=== PATIENT | male | born 1980 | race Caucasian/White ===

== ENCOUNTER → 2020-04-30 14:09 | Outpatient (BNVA) | payer MEDICAID, SELFPAY | PROVIDERS: Family Provider Family Medicine; PCP Family Medicine; Visit Provider Family Medicine | DX: E13.9 Other specified diabetes mellitus without complications (principal) | CPT/HCPCS: 80053; 83036; 85025 ==

== ENCOUNTER 2021-05-07 12:22 | Emergency (ER) | payer MEDICARE, MEDICAID, SELFPAY ==
--- NOTE | 2021-05-07 12:32 | PC.NURSE ---
Attempt to triage. Pt stated he needs to use the bathroom.
--- NOTE | 2021-05-07 12:37 | PC.NURSE ---
Pt in bathroom, Pt stated I'm okay
[2021-05-07 12:43] VITALS: BP 164/98; PULSE 75; RESP 22; O2SAT 92; BMI 19.9
--- NOTE | 2021-05-07 12:52 | XR_ITS ---
WS: [id number] Exam: XR abdomen min 2V [id number] Date/Time of Exam: 05/07/2021 12:52 PM Reason For Exam: Abd pain No bowel obstruction or free air. Signs of prior cholecystectomy. No evidence of organ enlargement. R egional bony elements are intact. XR/XR abdomen min 2V 17011 IMPRESSION: 1. No acute abdominal finding.
--- NOTE | 2021-05-07 12:53 | ED_ITS ---
HPI - Nausea/Vomiting/Diarrhea General: Chief complaint: Nausea/Vomiting/Diarrhea Stated complaint: SENT BY PCP: DEHYDRATED Time Seen by Provider: 05/07/21 12:49 History of Present Illness: HPI Narrative: This patient is a 40-year-old male who presents to the emergency department for nausea and vomiting has been going off and on for the past couple weeks. Patient states she just feels sick and just cannot keep anything down. Patient was sent to the emergency department from local clinic. Patient checks his blood glucose with monitor at the bedside was 248. Patient is a insulin-dependent diabetic. Will do medical evaluation treat as needed MD elicited complaint: nausea and vomiting Onset (ago): week(s) Associated nausea: Yes Location of pain: Epigastric Quality: aching Relieving factors: none Associated symtoms: Reports nausea; Denies anxiety, change in vision, chest pain, dysuria, fatigue, headache(s) or palpitations Review of Systems General: Reports: 10 or more systems reviewed and unremarkable except in HPI and below Const: Denies: fever(s), chills, body aches or fatigue Eyes: Denies: change in vision or blurry vision ENMT: Denies: throat pain, hoarseness or mouth pain Card: Denies: chest pain, palpitations, irregular heart rhythm, edema, swelling of feet/ankles or lightheadedness Resp: Denies: dyspnea, productive cough, non-productive cough, wheezing or pain on inspiration GI: Reports: nausea and vomiting; Denies: abdominal pain : Denies: flank pain, dysuria, urinary frequency, urinary urgency or urinary hesitancy Musc: Denies: neck pain, back pain, extremity pain, extremity swelling, joint pain, joint swelling, joint redness, joint warmth or limited range of motion Skin/Breast: Denies: rash, pruritus, erythema or skin tenderness Neuro: Denies: headache(s), numbness in extremities or weakness in extremities Psych: Denies: anxiety or depression PFSH ED PFSH: Medical History (Updated 05/07/21 @ 14:57 by Carlos Adams MD) Diabetes 1.5, managed as type 1 Diabetic peripheral neuropathy Social History Smoking and tobacco status: never smoked Alcohol intake: former Physical Exam Const: COMMON NORMALS: no acute distress, average body habitus, patient oriented x3, no limitations, healthy appearing, alert and well nourished HENMT: COMMON NORMALS: normocephalic, atraumatic, hearing grossly normal bilaterally, external ears normal, EAC's normal, TM's normal bilaterally, Normal external nose present, Normal nasal mucous membranes and turbinates present, moist oral mucous membranes, oropharynx normal, dentition normal and gingiva normal HEAD & SCALP: normocephalic and atraumatic NOSE: Normal external nose present and Normal nasal mucous membranes and turbinates present EXTERNAL EAR: Yes external ears normal EXTERNAL AUDITORY CANAL: EAC's normal TYMPANIC MEMBRANE: TM's normal bilaterally Neck/C-Spine: COMMON NORMALS: full ROM, no lymphadenopathy, supple, no meningeal signs, no JVD, Thyroid normal and No carotid bruits THYROID: Thyroid normal Chest: COMMONS NORMALS: normal inspection of the chest, normal palpation of entire chest wall, normal inspection of the breasts and normal palpation of the breasts Breast/axilla inspection: Yes normal inspection of the breasts BREAST/AXILLA PALPATION: Yes normal palpation of the breasts Resp: COMMON NORMALS: normal respiratory effort, No retractions, No use of accessory muscles, clear to auscultation bilaterally and percussion normal AUSCULTATION: clear to auscultation bilaterally PERCUSSION: percussion normal Cardio: COMMON NORMALS: no JVD, regular rate, regular rhythm, S1 normal heart sound present, S2 normal heart sound present, No gallops present (Cardio), No clicks present (Cardio), No murmurs present (Cardio), No rub (Cardio) and Peripheral pulses 2+ throughout RATE: regular rate RHYTHM: regular rhythm HEART SOUNDS: S1 normal heart sound present and S2 normal heart sound present PERIPHERAL PULSES: Peripheral pulses 2+ throughout GI: COMMON NORMALS: Normal to inspection, nondistended, normoactive bowel sounds present, Soft to palpation, non-tender, No hepatosplenomegaly present, no masses and no bruits PALPATION: Yes Soft to palpation and Yes No hepatosplenomegaly present : COMMON NORMALS: Yes no CVA tenderness BLADDER/KIDNEY EXAM: Yes no CVA tenderness Back/Pelvis: COMMON NORMALS: no CVA tenderness, thoracic and lumbar spine normal to inspection, no thoracic nor lumbar tenderness, thoraco-lumbar ROM normal and straight leg raise negative bilaterally Extremity: COMMON NORMALS: normal to inspection, full ROM, capillary refill normal, no joint enlargement, no clubbing, cyanosis or edema, no calf tenderness and no pedal edema Neuro: COMMON NORMALS: patient oriented x3 SENSORIUM/ORIENTATION: Yes alert MENINGEAL SIGNS: Yes no meningeal signs Course Reevaluation(s): Reevaluation #1: Negative evaluation in the emergency department for any acute findings. Patient will be discharged home. Patient does show to have mild dehydration. Patient has received fluid bolus in the emergency department. Encourage p.o. fluids. Tylenol Motrin as needed for fever or pain. Take medications as prescribed for nausea vomiting. May take any bmcr-cyt-[id number] antihistamine for nasal congestion. Follow-up with PCP in 2 to 3 days. Time: 14:58 Vital Signs: Vital signs: Vital Signs Pulse Rate 88 05/07/21 13:21 Respiratory Rate 15 05/07/21 13:21 Blood Pressure 170/85 05/07/21 13:21 Pulse Oximetry 99 05/07/21 13:21 MDM - Nausea/Vomiting/Diarrhea MDM Narrative: Medical decision making narrative: This patient is a 40-year- old male who presents to the emergency department for nausea and vomiting has been going off and on for the past couple weeks. Patient states she just feels sick and just cannot keep anything down. Patient was sent to the emergency department from local clinic. Patient checks his blood glucose with monitor at the bedside was 248. Patient is a insulin-dependent diabetic. Will do medical evaluation treat as needed Negative evaluation in the emergency department for any acute findings. Patient will be discharged home. Patient does show to have mild dehydration. Patient has received fluid bolus in the emergency department. Encourage p.o. fluids. Tylenol Motrin as needed for fever or pain. Take medications as prescribed for nausea vomiting. May take any [id number]-[id number] antihistamine for nasal congestion. Follow-up with PCP in 2 to 3 days. Lab Data: Labs: Lab Results 05/07/21 05/07/21 05/07/21 13:15 13:15 13:47 WBC 12.2 10^3/uL H 10 ^3/uL (4.0-10.0) RBC 4.32 10^6/uL 10^6 /uL (4.1-5.3) Hgb 12.7 g/dL g/dL (11.7-16.6) Hct 39.0 % L % (42.0-52.0) MCV 90.3 fl fl (80-94) MCH 29.4 pg pg (28.0-34.0) MCHC 32.6 g/dL g/dL (30.0-36.0) RDW 12.1 % % (12.1-15.1) Plt Count 469 10^3/cmm H 10 ^3/cmm (130-400) MPV 10.1 fL fL (7.4-10.4) Neut % (Auto) 70.2 % % Lymph % (Auto) 17.1 % % [place] % (Auto) 9.9 % % Eos % (Auto) 1.9 % % Baso % (Auto) 0.6 % % Neut # (Auto) 8.55 10^3/uL H 10 ^3/uL (1.8-7.7) Lymph # (Auto) 2.1 10^3/uL 10^3/ uL (0.8-4.8) [place] # (Auto) 1.2 10^3/uL H 10^ 3/uL (0.2-0.9) Eos # (Auto) 0.2 10^3/uL 10^3/ uL (0.0-0.8) Baso # (Auto) 0.1 10^3/uL 10^3/ uL (0.0-0.1) Nucleated RBC % (a uto) 0 % % Nucleated RBCs # 0.0 /100WBC /100W BC Specimen Type Arterial Sample Site Brachial, right ABG pH 7.41 (7.35-7.45) ABG pCO2 44.3 mmHg mmHg (35-45) ABG pO2 74.5 mmHg L mmHg (80.0-100.0) ABG HCO3 27.7 mmol/L H mmo l/L (22-26) ABG O2 Saturation 93.8 ABG Base Excess 2.5 mmol/L H mmol /L (-2.0-2.0) Santosh Test N/a A-a O2 Gradient 2.6 mmHg L mmHg (5-10) Hematocrit 37.4 % L % (42-52) Hgb O2 Saturation 92.7 % L % (95-100) Carboxyhemoglobin 0.1 %THgb L %THgb (0.4-20.1) Methemoglobin 1.0 % % (0.4-1.5) Total Hemoglobin 12.2 g/dL L g/dL (14-18) Ionized Calcium 1.2 mmol/L mmol/L (1.1-1.4) O2 Delivery Device Room air FiO2 21.0 % % Hydroelectric Powerplant Supervisor ID Amh Sodium 134 mmol/L L mmol /L 139.0 mmol/L mmol /L (136-145) (131-143) Potassium 3.8 mmol/L mmol/L 3.6 mmol/L mmol/L (3.5-5.1) (3.5-5.0) Chloride 97 mmol/L L mmol/ L (98-107) Carbon Dioxide 28 mmol/L mmol/L (22-29) Anion Gap 12.8 (5-19) BUN 25 mg/dL H mg/dL (6-20) Creatinine 2.0 mg/dL H mg/dL (0.7-1.2) GFR Calculation 36.8 mL/min L mL/ min (90-130) Glucose 225 mg/dL H mg/dL 144.0 mg/dL H mg/ dL (65-115) (70-115) Calculated Osmolal ity 289 mOsm/kg mOsm/ kg (285-295) Calcium 8.7 mg/dL mg/dL (8.5-10.5) Total Bilirubin 0.4 mg/dL mg/dL (0.15-1.2) AST 21 U/L U/L (0-40) ALT 25 U/L U/L (0-41) Alkaline Phosphata se 136 IU/L H IU/L (40-130) Total Protein 6.8 g/dL g/dL (6.6-8.7) Albumin 3.2 g/dL L g/dL (3.5-5.2) Globulin 3.6 g/dL g/dL (1.3-4.6) SARS-CoV-2 Ag (Rap id) 05/07/21 14:10 WBC RBC Hgb Hct MCV MCH MCHC RDW Plt Count MPV Neut % (Auto) Lymph % (Auto) [place] % (Auto) Eos % (Auto) Baso % (Auto) Neut # (Auto) Lymph # (Auto) [place] # (Auto) Eos # (Auto) Baso # (Auto) Nucleated RBC % (a uto) Nucleated RBCs # Specimen Type Sample Site ABG pH ABG pCO2 ABG pO2 ABG HCO3 ABG O2 Saturation ABG Base Excess Santosh Test A-a O2 Gradient Hematocrit Hgb O2 Saturation Carboxyhemoglobin Methemoglobin Total Hemoglobin Ionized Calcium O2 Delivery Device FiO2 Hydroelectric Powerplant Supervisor ID Sodium Potassium Chloride Carbon Dioxide Anion Gap BUN Creatinine GFR Calculation Glucose Calculated Osmolal ity Calcium Total Bilirubin AST ALT Alkaline Phosphata se Total Protein Albumin Globulin SARS-CoV-2 Ag (Rap id) Negative (Negative) Imaging Data^: Abd 2V: Attestation: I personally reviewed and interpreted this imaging study as follows: Radiologist's impression: IMPRESSION: 1. No acute abdominal finding. Discharge Plan Discharge Patient Disposition: Home Clinical Impression: Viral URI, Diabetes 1.5, managed as type 1, Dehydration, Mild nausea and vomiting Condition: Stable Prescriptions: New ondansetron 4 mg tablet,disintegrating 4 mg PO DAILY PRN (Reason: nausea and vomiting) 4 Days RF: 0 No Action omeprazole 20 mg capsule,delayed release(DR/EC) 20 mg PO BID 90 Days Qty: 180 RF: 1 diphenhydramine HCl [Benadryl] 25 mg capsule 25 mg PO TID PRN (Reason: Allergic Reaction) RF: 0 insulin lispro [Humalog KwikPen Insulin] 100 unit/mL insulin pen 20 unit SUBCUT TID 30 Days Qty: 15 RF: 11 Glucagon Emergency Kit (human) 1 mg recon soln 1 mg SUBCUT Q20M PRN (Reason: hypoglycemia) Qty: 1 RF: 6 amlodipine 2.5 mg tablet 2.5 mg PO DAILY Qty: 90 RF: 3 Levemir FlexTouch U-100 Insuln 100 unit/mL (3 mL) insulin pen 20 unit SUBCUT DAILY RF: 0 Discharge Orders: Discharge ED (Routine); Ordered 05/07/21 Ordered By: Carlos Adams Referrals: Amrit Antoine MD [Primary Care Provider] - Discharge Diet: Advance as tolerated Discharge Activity: Resume usual activity Patient Instructions: Opioid Safety Activity Restrictions/Additional Instructions: Encourage p.o. fluids. Tylenol Motrin as needed for fever or pain. Take medications as prescribed for nausea vomiting. May take any vowd-tuz-vvhjmtc antihistamine for nasal congestion. Follow-up with PCP in 2 to 3 days. Coding Level of Care Code ED Bread Stacker for Chg Fwd Exam Comprehensive
[2021-05-07 13:21] VITALS: BP 170/85; PULSE 88; RESP 15; O2SAT 99
[2021-05-07] MEDS: ondansetron 2 mg/ML SDV 2 mL 4 MG IVP (13:24)
[2021-05-07] MEDS: sodium chloride 0.9% 1,000 ML 999 ML IV ×2 (13:24→14:10)
[2021-05-07 13:26] LABS: Basophils # 0.1 10^3/uL (0.0-0.1); Basophils % 0.6 %; Eosinophils # 0.2 10^3/uL (0.0-0.8); Eosinophils % 1.9 %; Hemoglobin 12.7 g/dL (11.7-16.6); Lymphocytes # 2.1 10^3/uL (0.8-4.8); Lymphocytes % 17.1 %; Mean Corpuscular HGB Conc 32.6 g/dL (30.0-36.0); Mean Corpuscular Hemoglobin 29.4 pg (28.0-34.0); Mean Corpuscular Volume 90.3 fl (80-94); Mean Platelet Volume 10.1 fL (7.4-10.4); Monocytes # 1.2 10^3/uL (0.2-0.9); Monocytes % 9.9 %; Neutrophils # 8.55 10^3/uL (1.8-7.7); Neutrophils % 70.2 %; Nucleated Red Blood Cells % 0 %; Platelet Count 469 10^3/cmm (130-400); Red Blood Count 4.32 10^6/uL (4.1-5.3); Red Cell Distribution Width 12.1 % (12.1-15.1); White Blood Count 12.2 10^3/uL (4.0-10.0)
[2021-05-07 13:42] LABS: Alanine Aminotransferase 25 U/L (0-41); Albumin Level 3.2 g/dL (3.5-5.2); Alkaline Phosphatase 136 IU/L (40-130); Anion Gap 12.8 (5-19); Aspartate Amino Transferase 21 U/L (0-40); Blood Urea Nitrogen 25 mg/dL (6-20); Calcium 8.7 mg/dL (8.5-10.5); Carbon Dioxide 28 mmol/L (22-29); Chloride 97 mmol/L (98-107); Globulin 3.6 g/dL (1.3-4.6); Glomerular Filtration Rate 36.8 mL/min (90-130); Glucose 225 mg/dL (65-115); Osmolality Calculated 289 mOsm/kg (285-295); Potassium 3.8 mmol/L (3.5-5.1); Sodium 134 mmol/L (136-145); Total Bilirubin 0.4 mg/dL (0.15-1.2); Total Protein 6.8 g/dL (6.6-8.7)
[2021-05-07 13:58] LABS: ABG PCO2 44.3 mmHg (35-45); ABG PH Result 7.41 (7.35-7.45); Alveolar-Arterial Oxygen Gradi 2.6 mmHg (5-10); Arterial Blood Gas Hematocrit 37.4 % (42-52); Base Excess ABG 2.5 mmol/L (-2.0-2.0); Blood Gas Operator Identificat AMH; Blood Gas Sample Site Brachial, right; Blood Gas Sample Type Arterial; Carboxyhemoglobin 0.1 %THgb (0.4-20.1); HCO3 ABG 27.7 mmol/L (22-26); HGB O2 Sat 92.7 % (95-100); Ionized Calcium Level - ABG 1.2 mmol/L (1.1-1.4); Oxygen Device ROOM AIR; Oxygen Saturation ABG 93.8; PO2 ABG 74.5 mmHg (80.0-100.0); Potassium Level - ABG 3.6 mmol/L (3.5-5.0); Total Hemoglobin 12.2 g/dL (14-18)
[2021-05-07 14:40] LABS: SARS Covid-2 Antigen Negative (Negative)
[2021-05-07 15:00] VITALS: BP 158/108; PULSE 98; RESP 18; O2SAT 98
[2021-05-07 15:13] VITALS: BP 158/108; PULSE 98; RESP 18; O2SAT 98
== END 2021-05-07 15:14 | disposition home or self-care (01) ==
PROVIDERS: Emergency Provider Emergency Medicine; PCP Family Medicine
DX: J06.9 Acute upper respiratory infection, unspecified (principal); E13.42 Other specified diabetes mellitus with diabetic polyneuropathy; E86.0 Dehydration; R11.2 Nausea with vomiting, unspecified; Z79.4 Long term (current) use of insulin; Z20.822 Contact with and (suspected) exposure to COVID-19
CPT/HCPCS: 36600; 74019; 80051; 80053; 82330; 82805; 85025; 87426; 96361; 96374; 99283; J2405; J7030

== ENCOUNTER 2022-03-06 14:37 | Inpatient (IN) | payer MEDICARE, MEDICAID, SELFPAY ==
[2022-03-06] VITALS (13 sets, daily range): BP systolic 135–182; BP diastolic 83–120; PULSE 79–106; RESP 14–24; TEMP 36.3–37.2; O2SAT 93–99; BMI 19.9
--- NOTE | 2022-03-06 15:37 | XRR_ITS ---
PROCEDURE INFORMATION: Exam: XR Chest Exam date and time: 03/06/2022 5:50 PM Age: 41 years old Clinical indication: Shortness of breath; Additional info: SOB TECHNIQUE: Imaging protocol: Radiologic exam of the chest. Views: 1 view. COMPARISON: CR XR abdomen min 2V [id number] 05/07/2021 12:57 PM FINDINGS: Lungs: Fine reticular interstitial lung changes. Negative for consolidation. Pleural spaces: Bilateral pleural effusions. Negative for pneumothorax. Heart/Mediastinum: Unremarkable. No cardiomegaly. Bones/joints: Unremarkable. XR/XR chest 1V portable [id number] IMPRESSION: 1. Pleural effusions. 2. No focal acute pulmonary disease.
--- NOTE | 2022-03-06 15:37 | ECG_ITS ---
[facility] Test Date: 2022-03-06 Pat Name: Fabián Ortiz Department: Room: Gender: Male Clerk Cashier: : 1980 Requested By: Carlos Sanchez Order Number: [id number] Nichole MD: Isabel Topete M.D. Measurements Intervals [place] Rate: 96 P: 54 CO: 148 QRS: 47 QRSD: 87 T: 123 QT: 375 QTc: 476 Interpretive Statements SINUS RHYTHM POSSIBLE LEFT ATRIAL ENLARGEMENT [-0.1mV P-WAVE IN V1/V2] NONSPECIFIC T-WAVE ABNORMALITY No previous ECG available for comparison Electronically Signed On 03-06-2022 17:17:17 CDT by Isabel Topete M.D. [email or web address] World ([email or web address]) [employer] [email or web address]/[id number] f
--- NOTE | 2022-03-06 17:37 | ECG_ITS ---
[facility] Test Date: 2022-03-06 Pat Name: Fabián Ortiz Department: Room: Gender: Male Any Commodity Sales Deliverer: : 1980 Requested By: Carlos Sanchez Order Number: [id number] Nichole MD: Isabel Topete M.D. Measurements Intervals [place] Rate: 105 P: 41 MI: 151 QRS: 36 QRSD: 91 T: 154 QT: 371 QTc: 491 Interpretive Statements SINUS TACHYCARDIA ST DEVIATION AND MODERATE T-WAVE ABNORMALITY, CONSIDER LATERAL ISCHEMIA [-0.1+ mV T-WAVE IN I/aVL/V5/V6] Compared to ECG 03/06/2022 14:55:40 Possible ischemia now present Sinus rhythm no longer present T-wave abnormality still present Electronically Signed On 03-06-2022 17:47:43 CDT by Isabel Topete M.D. [email or web address] behavioral health [email or web address] (formerly [employer])[email or web address]/store/[id number]
--- NOTE | 2022-03-06 17:37 | W.ED.GENADLT ---
HPI - General Adult General: Chief complaint: Extremity Problem,Nontraumatic Stated complaint: Swelling of the legs/body Time Seen by Provider: 03/06/22 17:29 Source: patient Mode of arrival: ambulatory Limitations: no limitations History of Present Illness: Patient is a 41-year-old male with a history of HTN, DM type 1 (states he is very brittle), GERD, abdominal migraines , and hepatitis C here for complaints of bilateral lower leg edema and shortness of breath over the past 2 weeks or so. Patient states he normally has some mild bilateral leg swelling but feels like it is worse than his baseline. He states he is getting short of breath with minimal exertion and when lying flat. He has no history of CHF. He is not complaining of chest pain. Patient admittedly has not been taking his hypertension medication. PCP is Dr. Antoine. Of note he states he has not been urinating as much as normal. Onset (ago): week(s) Exacerbating factors: other (exertion, lying flat) Associated symptoms: Reports dyspnea; Deny chest pain, confusion, headache(s), malaise, nausea, rash, palpitations, syncope or vomiting Treatments prior to arrival: none Review of Systems Const: Denies: fever(s), chills, body aches, fatigue or malaise Eyes: Denies: change in vision, blurry vision or photophobia ENMT: Denies: throat pain, odynophagia, nasal discharge or nasal congestion Card: Reports: edema and swelling of feet/ankles; Denies: chest pain, palpitations, irregular heart rhythm, lightheadedness, syncope, pre-syncope, dyspnea on exertion, orthopnea, leg pain with exertion or acrocyanosis Resp: Reports: dyspnea; Denies: productive cough, non-productive cough, wheezing, pain on inspiration, hemoptysis or chest congestion GI: Reports: abdominal pain (intermittently-reports hx of abdominal migraines ); Denies: nausea, vomiting, heartburn or diarrhea : Denies: flank pain, difficulty urinating, dysuria or hematuria Musc: Reports: extremity swelling; Denies: neck pain, back pain, extremity pain, joint pain, joint swelling, joint redness, joint warmth or limited range of motion Skin/Breast: Denies: rash Neuro: Reports: sensory changes (chronic LE diabetic neuropathy); Denies: headache(s), weakness in extremities, difficulty walking, dizziness or confusion PFS ED PFSH: Medical History (Updated 03/06/22 @ 20:23 by ROGER Frey) Diabetes 1.5, managed as type 1 Diabetic peripheral neuropathy Social History Smoking and tobacco status: never smoked Alcohol intake: former Physical Exam Const: COMMON NORMALS: no acute distress, patient oriented x3, no limitations and alert GENERAL APPEARANCE: cooperative ORIENTATION/CONSCIOUSNESS: Yes awake, Yes oriented to person, Yes oriented to place and Yes oriented to time HENMT: COMMON NORMALS: normocephalic and atraumatic HEAD & SCALP: normal to inspection, normocephalic and atraumatic Neck/C-Spine: COMMON NORMALS: full ROM, no lymphadenopathy and no meningeal signs GENERAL: Yes normal visual inspection Resp: COMMON NORMALS: normal respiratory effort and clear to auscultation bilaterally EFFORT & INSPECTION: Yes able to speak in complete sentences AUSCULTATION: clear to auscultation bilaterally Cardio: COMMON NORMALS: regular rhythm RATE: tachycardic (mild-just walked back to his room) RHYTHM: regular rhythm GI: COMMON NORMALS: Normal to inspection, nondistended, normoactive bowel sounds present, Soft to palpation and non-tender INSPECTION: Yes scar PALPATION: Yes Soft to palpation, No Tenderness to palpation present (GI), No Guarding due to palpation present (GI) and No Rigid due to palpation : COMMON NORMALS: Yes no CVA tenderness BLADDER/KIDNEY EXAM: Yes no CVA tenderness Back/Pelvis: COMMON NORMALS: no CVA tenderness, thoracic and lumbar spine normal to inspection, no thoracic nor lumbar tenderness and thoraco-lumbar ROM normal Extremity: COMMON NORMALS: full ROM, capillary refill normal and no joint enlargement GENERAL: Yes normal exam except as noted OTHER: bilateral LE pitting edema; symmetrical starting from about mid conley extending to lower leg, ankle, and feet; previous toe amputation Neuro: VILMA COMA SCALE: document GCS findings [place] coma scale eye opening: Spontaneous [place] coma scale verbal response: Orientated [place] coma scale motor response: Obey commands [place] coma scale total score: 15 COMMON NORMALS: patient oriented x3, moves all extremities, no focal motor deficits, no sensory deficits noted and gait normal SENSORIUM/ORIENTATION: Yes alert, Yes oriented to person, Yes oriented to place and Yes oriented to time MENINGEAL SIGNS: Yes no meningeal signs Skin: COMMON NORMALS: no rashes or lesions noted GENERAL SKIN EXAM: no rashes or lesions noted Course Consultations: Consultation #1: Dr. Swenson-accepts admit to ICU; does not request any further orders from our end as she will calculate insulin drip/fluid needs Vital Signs: Vital signs: Vital Signs Temperature 97.4 F L 03/06/22 14:57 Pulse Rate 104 H 03/06/22 18:01 Respiratory Rate 16 03/06/22 18:01 Blood Pressure 177/120 03/06/22 18:01 Pulse Oximetry 96 03/06/22 18:01 Oxygen Delivery Me thod 03/06/22 18:01 MDM - General Adult Medical Decision Making Patient is a 41-year-old male here with a 2-week history of bilateral leg swelling and shortness of breath with exertion and lying flat. Clinically patient is fluid overloaded with bilateral lower extremity pitting edema. CXR shows bilateral pleural effusions. Patient has been hypertensive during his stay. He does state he has untreated hypertension but blood pressure usually is not that high. Attempted to give patient his normal oral dose of amlodipine but he began vomiting. POC glucose was checked and it was found to be elevated to 15. Patient states that is very high for him as he is a brittle diabetic. He states he would normally take 3 units of NovoLog for sugar that high. This was ordered. Patient's blood work shows anemia with a hemoglobin of 9.2. He is in acute renal failure with a BUN/Cr of 98/7.6. He is hypocalcemic at 7.8. Appears he is in acute onset CHF with a BNP of over 54,000. In addition he most likely is in DKA given his nausea, vomiting, positive serum ketones, gap of 25.2 and a bicarb of 15. Baseline troponin is 92 most likely secondary to renal functions. He is not having any chest pain. EKGs were reviewed with Dr. Enriquez. Obviously this patient needs an ICU admit. I spoke to Dr. Swenson. She will work on patient insulin drip and fluid requirements given his need for CHF diuresis in the setting of acute renal failure and DKA. She did not request any further orders at this time. Dr. Enriquez aware of patient and will assess. Lab Data : 03/06/22 18:09 03/06/22 18:09 Radiology Impressions Chest X-Ray 03/06/22 15:37 IMPRESSION: 1. Pleural effusions. 2. No focal acute pulmonary disease. Laboratory Results WBC 9.7 10^3/uL (4.0-10.0) 03/06/22 18:09 RBC 3.02 10^6/uL (4.1-5.3) L 03/06/22 18:09 Hgb 9.2 g/dL (11.7-16.6) L 03/06/22 18:09 Hct 28.0 % (42.0-52.0) L 03/06/22 18:09 MCV 92.7 fl (80-94) 03/06/22 18:09 MCH 30.5 pg (28.0-34.0) 03/06/22 18:09 MCHC 32.9 g/dL (30.0-36.0) 03/06/22 18:09 RDW 13.2 % (12.1-15.1) 03/06/22 18:09 Plt Count 461 10^3/cmm (130-400) H 03/06/22 18:09 MPV 10.7 fL (7.4-10.4) H 03/06/22 18:09 Neut % (Auto) 74.1 % 03/06/22 18:09 Lymph % (Auto) 15.9 % 03/06/22 18:09 [place] % (Auto) 6.7 % 03/06/22 18:09 Eos % (Auto) 1.6 % 03/06/22 18:09 Baso % (Auto) 1.4 % 03/06/22 18:09 Neut # (Auto) 7.16 10^3/uL (1.8-7.7) 03/06/22 18:09 Lymph # (Auto) 1.5 10^3/uL (0.8-4.8) 03/06/22 18:09 [place] # (Auto) 0.7 10^3/uL (0.2-0.9) 03/06/22 18:09 Eos # (Auto) 0.2 10^3/uL (0.0-0.8) 03/06/22 18:09 Baso # (Auto) 0.1 10^3/uL (0.0-0.1) 03/06/22 18:09 Nucleated RBC % (auto) 0 % 03/06/22 18:09 Nucleated RBCs # 0.0 /100WBC 03/06/22 18:09 Specimen Type Arterial 03/06/22 19:55 Sample Site Radial, left 03/06/22 19:55 ABG pH 7.35 (7.35-7.45) 03/06/22 19:55 ABG pCO2 33.7 mmHg (35-45) L 03/06/22 19:55 ABG pO2 61.4 mmHg (80.0-100.0) L 03/06/22 19:55 ABG HCO3 18.4 mmol/L (22-26) L 03/06/22 19:55 ABG O2 Saturation 90.2 03/06/22 19:55 ABG Base Excess -6.6 mmol/L (-2.0-2.0) L 03/06/22 19:55 Santosh Test Pos 03/06/22 19:55 A-a O2 Gradient 6.0 mmHg (5-10) 03/06/22 19:55 Hematocrit 25.9 % (42-52) L 03/06/22 19:55 Hgb O2 Saturation 88.7 % (95-100) L 03/06/22 19:55 Carboxyhemoglobin 0.2 %THgb (0.4-20.1) L 03/06/22 19:55 Methemoglobin 1.4 % (0.4-1.5) 03/06/22 19:55 Total Hemoglobin 8.5 g/dL (14-18) L 03/06/22 19:55 Sodium 142.0 mmol/L (131-143) 03/06/22 19:55 Potassium 3.8 mmol/L (3.5-5.0) 03/06/22 19:55 Glucose 145.0 mg/dL (70-115) H 03/06/22 19:55 Ionized Calcium 1.1 mmol/L (1.1-1.4) 03/06/22 19:55 O2 Delivery Device None 03/06/22 19:55 Correctional Counselor/Case Manager ID Hensa 03/06/22 19:55 Sodium 140 mmol/L (136-145) 03/06/22 18:09 Potassium 4.2 mmol/L (3.5-5.1) 03/06/22 18:09 Chloride 104 mmol/L (98-107) 03/06/22 18:09 Carbon Dioxide 15 mmol/L (22-29) L 03/06/22 18:09 Anion Gap 25.2 (5-19) H 03/06/22 18:09 BUN 98 mg/dL (6-20) H* D 03/06/22 18:09 Creatinine 7.6 mg/dL (0.7-1.2) H* 03/06/22 18:09 GFR Calculation 7.9 mL/min (90-130) L 03/06/22 18:09 Glucose 218 mg/dL (65-115) H 03/06/22 18:09 POC Glucose 217 mg/dL (70-110) H 03/06/22 18:54 Calculated Osmolality 327 mOsm/kg (285-295) H 03/06/22 18:09 Calcium 7.8 mg/dL (8.5-10.5) L 03/06/22 18:09 Total Bilirubin 0.3 mg/dL (0.15-1.2) 03/06/22 18:09 AST 30 U/L (0-40) 03/06/22 18:09 ALT 31 U/L (0-41) 03/06/22 18:09 Alkaline Phosphatase 103 IU/L (40-130) 03/06/22 18:09 Troponin T Baseline 92 ng/L (0-15) H 03/06/22 18:09 NT-Pro-B Natriuret Pep 62197 pg/mL (0-125) H 03/06/22 18:09 Total Protein 6.5 g/dL (6.6-8.7) L 03/06/22 18:09 Albumin 3.1 g/dL (3.5-5.2) L 03/06/22 18:09 Globulin 3.4 g/dL (1.3-4.6) 03/06/22 18:09 TSH 2.07 uIU/mL (0.27-4.20) 03/06/22 18:09 Serum Ketones Positive (Negative) H 03/06/22 18:09 Discharge Plan Discharge Patient Disposition: Admitted As Inpatient Clinical Impression: Acute CHF (congestive heart failure), Acute renal failure, DKA, type 1, Hypertensive emergency, Anemia Condition: Stable Coding Level of Care Code ED Giving Officer for Chg Fwd Exam Comprehensive
[2022-03-06] MEDS: amlodipine 5 mg Tablet PO (17:56)
[2022-03-06 18:31] LABS: Basophils # 0.1 10^3/uL (0.0-0.1); Basophils % 1.4 %; Eosinophils # 0.2 10^3/uL (0.0-0.8); Eosinophils % 1.6 %; Hemoglobin 9.2 g/dL (11.7-16.6); Lymphocytes # 1.5 10^3/uL (0.8-4.8); Lymphocytes % 15.9 %; Mean Corpuscular HGB Conc 32.9 g/dL (30.0-36.0); Mean Corpuscular Hemoglobin 30.5 pg (28.0-34.0); Mean Corpuscular Volume 92.7 fl (80-94); Mean Platelet Volume 10.7 fL (7.4-10.4); Monocytes # 0.7 10^3/uL (0.2-0.9); Monocytes % 6.7 %; Neutrophils # 7.16 10^3/uL (1.8-7.7); Neutrophils % 74.1 %; Nucleated Red Blood Cells % 0 %; Platelet Count 461 10^3/cmm (130-400); Red Blood Count 3.02 10^6/uL (4.1-5.3); Red Cell Distribution Width 13.2 % (12.1-15.1); White Blood Count 9.7 10^3/uL (4.0-10.0)
[2022-03-06] MEDS: ondansetron 2 mg/ML SDV 2 mL 4 MG IVP ×2 (18:55→21:49)
[2022-03-06 18:57] LABS: Glucose Point of Care 217 mg/dL (70-110)
[2022-03-06 19:15] LABS: Troponin(5th) Baseline 92 ng/L (0-15)
[2022-03-06 19:23] LABS: Alanine Aminotransferase 31 U/L (0-41); Albumin Level 3.1 g/dL (3.5-5.2); Alkaline Phosphatase 103 IU/L (40-130); Anion Gap 25.2 (5-19); Aspartate Amino Transferase 30 U/L (0-40); Calcium 7.8 mg/dL (8.5-10.5); Carbon Dioxide 15 mmol/L (22-29); Chloride 104 mmol/L (98-107); Globulin 3.4 g/dL (1.3-4.6); Glomerular Filtration Rate 7.9 mL/min (90-130); Glucose 218 mg/dL (65-115); Osmolality Calculated 327 mOsm/kg (285-295); Potassium 4.2 mmol/L (3.5-5.1); Sodium 140 mmol/L (136-145); Thyroid Stimulating Hormone 2.07 uIU/mL (0.27-4.20); Total Bilirubin 0.3 mg/dL (0.15-1.2); Total Protein 6.5 g/dL (6.6-8.7)
[2022-03-06 19:31] LABS: Blood Urea Nitrogen 98 mg/dL (6-20)
[2022-03-06] MEDS: insulin regular-human 100 units/1 mL 3 UNIT IVP (19:35)
[2022-03-06 19:36] LABS: Ketone (Acetest) Serum Positive (Negative)
--- NOTE | 2022-03-06 19:36 | ECG_ITS ---
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 Measurements Intervals [place] Rate: 104 P: 127 HI: 154 QRS: 148 QRSD: 89 T: 49 QT: 379 QTc: 500 Interpretive Statements SINUS TACHYCARDIA ARM LEADS REVERSED [INVERTED P AND QRS IN I] ABNORMAL RHYTHM ECG Compared to ECG 03/06/2022 17:46:05 T-wave abnormality no longer present Possible ischemia no longer present Electronically Signed On 03-07-2022 11:59:52 CDT by Vaibhav Orlando M.D. [id number] f
[2022-03-06] MEDS: labetalol 5 mg/mL SDV 20mL 10 MG IVP (20:00)
[2022-03-06 20:04] LABS: ABG PCO2 33.7 mmHg (35-45); ABG PH Result 7.35 (7.35-7.45); Arterial Blood Gas Hematocrit 25.9 % (42-52); Base Excess ABG -6.6 mmol/L (-2.0-2.0); Blood Gas Allen Test Pos; Blood Gas Sample Site Radial, left; Blood Gas Sample Type Arterial; Carboxyhemoglobin 0.2 %THgb (0.4-20.1); HCO3 ABG 18.4 mmol/L (22-26); HGB O2 Sat 88.7 % (95-100); Ionized Calcium Level - ABG 1.1 mmol/L (1.1-1.4); Methemoglobin 1.4 % (0.4-1.5); Oxygen Saturation ABG 90.2; PO2 ABG 61.4 mmHg (80.0-100.0); Potassium Level - ABG 3.8 mmol/L (3.5-5.0); Total Hemoglobin 8.5 g/dL (14-18)
[2022-03-06 20:24] LABS: Troponin 5 2HR 86.56 ng/L (0-15)
[2022-03-06 20:31] LABS: Troponin 5 2HR Delta -5.44 ABS# (0-10)
--- NOTE | 2022-03-06 21:26 | CTR_ITS ---
PROCEDURE INFORMATION: Exam: CT Abdomen And Pelvis Without Contrast Exam date and time: 03/07/2022 12:47 AM Age: 41 years old Clinical indication: Patient HX: Clark. Bilateral lower leg swelling. C/O diffuse pain. ; Additional info: Clark, evaluate for hydronephrosis/obstrcution TECHNIQUE: Imaging protocol: Computed tomography of the abdomen and pelvis without contrast. Radiation optimization: All CT scans at this facility use at least one of these dose optimization techniques: automated exposure control; mA and/or kV adjustment per patient size (includes targeted exams where dose is matched to clinical indication); or iterative reconstruction. COMPARISON: CR XR abdomen min 2V [id number] 05/07/2021 12:57 PM RADIATION DOSE METRICS: Total DLP (mGy-cm): 354.01 FINDINGS: Lungs: Nonspecific lower lobe airspace opacities. Septal thickening features. Pleural spaces: Moderate to large right pleural effusion. Small to moderate left pleural effusion. Liver: Normal. No mass. Gallbladder and bile ducts: Cholecystectomy. Pancreas: Normal. No ductal dilation. Spleen: Normal. No splenomegaly. Adrenal glands: Normal. No mass. Kidneys and ureters: Normal. No hydronephrosis. Stomach and bowel: Unremarkable. No obstruction. No mucosal thickening. Generalized mesenteric edema. Appendix: No evidence of appendicitis. Intraperitoneal space: Unremarkable. No free air. No significant fluid collection. Vasculature: Diffuse atherosclerosis without aneurysm. Lymph nodes: Unremarkable. No enlarged lymph nodes. Urinary bladder: Bladder decompressed. Hernandez catheter within the bladder. Reproductive: Mild severity prostatomegaly. Bones/joints: Unremarkable. No acute fracture. Soft tissues: Body wall anasarca. CT/CT kidney stone 19305 IMPRESSION: 1. Diffuse fluid overload changes. 2. No focal acute abdominopelvic pathology.
--- NOTE | 2022-03-06 21:31 | P.HP_ITS ---
Providers/Chief Complaint Admitting Physician: Margarette Swenson MD Primary Care Provider: Amrit Antoine MD Chief Complaint: Swelling of the legs/body History of Present Illness Fabián Ortiz Jr is a 41 year old male with a past medical history of hypertension presents to the ER today due to worsening lower extremity edema over the past 2 to 3 weeks. Also complaints of dyspnea with minimal exertio, iniability to lie flat. No chest pain. In the ER today he is noted to be vomiting. Labs show MELVIN, Cr >7. No h/o recent changes in medication, NSAID use. Review of Systems General: Reports: 10 or more systems reviewed and unremarkable except in HPI and below Const: Denies: fever(s), chills or body aches Eyes: Denies: change in vision, blurry vision or photophobia ENMT: Reports: hoarseness; Denies: throat pain, enlarged tonsils, odynophagia or nasal congestion Card: Denies: chest pain, palpitations, irregular heart rhythm, edema, swelling of feet/ankles, lightheadedness, pre-syncope, dyspnea on exertion or orthopnea Resp: Denies: dyspnea, productive cough, non-productive cough, wheezing, stridor, pain on inspiration, change in phlegm color, hemoptysis or chest congestion GI: Denies: abdominal pain, nausea, vomiting, hematemesis, coffee ground emesis, dysphagia, heartburn, diarrhea, constipation, GI cramping, change in stool character, hematochezia or melena : Denies: flank pain, dysuria, urinary frequency, urinary urgency, urinary hesitancy or hematuria Musc: Denies: neck pain, back pain, extremity pain, joint swelling, joint warmth or deformity Neuro: Denies: headache(s), numbness in extremities, weakness in extremities, sensory changes, difficulty walking, frequent falls, dizziness, vertigo, behavioral changes, Slurred speech present or seizure-like activity Psych: Denies: anxiety, depression, suicidal ideation or homicidal ideation Endo: Denies: polyuria, polydipsia, tired all the time, cold intolerance or hot flashes Mike/Lymph: Denies: easy bruising or easy bleeding Medications/Allergies Home Medications Medication Instructions Recorded Confirmed Last Taken Type diphenhydramine HCl 25 mg capsule 25 mg PO TID PRN Allergic Reaction 08/28/19 03/06/22 Unknown History (Benadryl) glucagon (human recombinant) 1 mg 1 mg SUBCUT Q20M PRN hypoglycemia 02/13/20 03/06/22 Unknown Rx solution for injection (Glucagon #1 ea Emergency Kit) amlodipine 2.5 mg tablet 2.5 mg PO DAILY #90 tabs 04/23/21 03/06/22 Unknown Rx scopolamine base 1 mg over 3 days 1 patch transdermal Q3D PRN nausea 05/21/21 03/06/22 Unknown Rx transdermal patch and vomiting #10 ea flash glucose sensor (FreeStyle See Rx Instructions .Route 06/20/21 03/06/22 Unknown Rx Alicia 14 Day Sensor) .COMPLEX #1 ea insulin lispro 100 unit/mL 20 unit (0.2 mL) SUBCUT TID 30 01/26/22 03/06/22 Unknown Rx subcutaneous pen (Humalog KwikPen days #15 mL (U-100) Insulin) hydrocodone 5 mg-acetaminophen 325 1 tab PO Q6H PRN pain 30 days #120 02/23/22 03/06/22 Unknown Rx mg tablet tabs insulin detemir U-100 100 unit/mL 20 unit (0.2 mL) SUBCUT DAILY #15 02/23/22 03/06/22 03/04/22 21:00 Rx (3 mL) subcutaneous pen (Levemir mL FlexTouch U-100 Insulin) Allergies Allergy/AdvReac Type Severity Reaction Status Date / Time cefaclor [From Ceclor] Allergy rash Verified 05/07/21 11:28 metoclopramide [From Reglan] Allergy bites his Verified 05/07/21 11:28 tongue prochlorperazine Allergy no IV just Verified 05/07/21 11:28 [From Compazine] oral PFSH Acute PFSH: Medical History (Updated 03/07/22 @ 06:55 by Margarette Swenson MD) Depression Diabetes 1.5, managed as type 1 Diabetic peripheral neuropathy Surgical History (Updated 03/07/22 @ 06:55 by Margarette Swenson MD) History of cholecystectomy Social History Smoking and tobacco status: never smoked Alcohol intake: former Vitals/I&O/Wt Last Vital Signs Temp 97.4 F L 03/06/22 14:57 Pulse 95 03/06/22 21:00 Resp 24 H 03/06/22 21:00 BP 163/102 03/06/22 21:00 Pulse Ox 93 03/06/22 21:00 O2 Del Method 03/06/22 21:00 O2 Flow Rate 2 03/06/22 21:00 Weight last 48 hrs Weight 61.235 kg Physical Exam 2 Narrative: General: mild distress from vomitig, AO x3 HEENT: PERRLA, pupils bilaterally equal and reactive, pallors not present Chest: Normal vesicular breath sounds, no added sounds, equal good air entry bilaterally CVS: S1-S2 regular, no murmurs, no tachycardia, no gallops, no rubs Abdomen: Soft, nontender, no organomegaly, bowel sounds present Neuro: No focal deficits, no facial deformity, AO x3, power 5/5 in all limbs Extremities: B/L LE pitting edema + Data : 03/07/22 03:50 03/07/22 05:34 A&P Assessment and plan (1) Acute renal failure: MELVIN , cr at >7 no culprit medications on drug list urine lytes, urine cr check CT abdomen to evalute for obstructive uropathy Luna catheter, monitor urine output , currently 400cc output Status: Acute (2) Pulmonary edema: likely related to MELVIN Lasix 20mg IV q12h check echocardiogram Status: Acute Plan # increased anion gap: likely a combination of volume losses from excessive vomiting. Blood sugar currently <200, ABG with pH 7.35, hco3 18. Concern also for potential DKA though does not currently meet all parameters. Start lantus 20 U and sliding scale, monitor CMMP q6h. May need insulin drip in case of worsening acidosis Attestations Medical Necessity Statement*: anticipate >2midnight admission for evaluation and management of MELVIN, hypervolemia , pulm edema Coding Level of Care Code Acute Venue Manager for [facility] Sally Diagnoses Acute renal failure N17.9 Pulmonary edema J81.1
[2022-03-06 21:47] LABS: Glucose Point of Care 126 mg/dL (70-110)
[2022-03-06] MEDS: heparin 5,000 unit/mL INJ 1 mL 5000 UNIT SUBCUT (21:58)
[2022-03-06 22:40] LABS: Alanine Aminotransferase 26 U/L (0-41); Alkaline Phosphatase 103 IU/L (40-130); Anion Gap 26.3 (5-19); Aspartate Amino Transferase 26 U/L (0-40); Calcium 8.1 mg/dL (8.5-10.5); Carbon Dioxide 16 mmol/L (22-29); Chloride 106 mmol/L (98-107); Globulin 3.1 g/dL (1.3-4.6); Glomerular Filtration Rate 7.9 mL/min (90-130); Glucose 139 mg/dL (65-115); Osmolality Calculated 331 mOsm/kg (285-295); Potassium 4.3 mmol/L (3.5-5.1); Sodium 144 mmol/L (136-145); Total Bilirubin 0.2 mg/dL (0.15-1.2); Total Protein 6.1 g/dL (6.6-8.7)
[2022-03-06 22:51] LABS: Blood Urea Nitrogen 100 mg/dL (6-20)
--- NOTE | 2022-03-06 23:08 | PC.NURSE ---
Unable to give Lantus at this time. Awaiting delivery from pharmacy.
[2022-03-06 23:31] LABS: Potassium, Radom Urine 28 mmol/L; Urine Creatinine 65 mg/dL (39-259); Urine Random Chloride 34 mmol/L; Urine Random Sodium 51 mmol/L
[2022-03-06 23:36] LABS: Add Urine Microscopic? YES; Bilirubin Urine Neg (Negative); Blood Urine 2+ (Negative); Glucose Urine UA 2+ (Normal); Ketones Urine 1+ (Negative); Leukocyte Esterase Urine Negative (Negative); Nitrate Urine Negative (Negative); Protein Urine 3+ (Negative); Specific Gravity, Urine 1.015 (1.005-1.030); Urine Appearance Clear (CLEAR); Urine Color Yellow (Yellow); Urobilinogen Urine Neg (Negative); pH Urine 5 (5-7)
[2022-03-06 23:37] LABS: Add Urine Culture? No; Amorphous Sediment Urine TRACE /hpf; Bacteria Urine TRACE /hpf; Mucus Urine TRACE /hpf; Sperm Urine 1+ /hpf; Squamous Epithelial Cell Urine 0-4 /hpf (0-5)
[2022-03-07] VITALS (61 sets, daily range): BP systolic 118–196; BP diastolic 75–145; PULSE 71–125; RESP 13–29; TEMP 36.6–37.3; O2SAT 96–100
[2022-03-07 00:29] LABS: Glucose Point of Care 203 mg/dL (70-110)
[2022-03-07] MEDS: insulin glargine 100 units/1 mL 20 UNIT SUBCUT ×2 (00:31→20:45)
[2022-03-07 00:59] LABS: Troponin 5 6HR 84.46 ng/L (0-15)
[2022-03-07 01:00] LABS: Magnesium 2.2 mg/dL (1.7-2.3)
[2022-03-07] MEDS: scopolamine 1.5 Patch 1 PATCH TRANSDERMA (01:00)
[2022-03-07 01:02] LABS: Troponin 5 6HR Delta -7.54 ng/L (0-12)
[2022-03-07 01:12] LABS: Alanine Aminotransferase 26 U/L (0-41); Albumin Level 2.7 g/dL (3.5-5.2); Alkaline Phosphatase 97 IU/L (40-130); Anion Gap 26.4 (5-19); Aspartate Amino Transferase 20 U/L (0-40); Calcium 7.9 mg/dL (8.5-10.5); Carbon Dioxide 15 mmol/L (22-29); Chloride 103 mmol/L (98-107); Globulin 2.8 g/dL (1.3-4.6); Glomerular Filtration Rate 7.7 mL/min (90-130); Glucose 195 mg/dL (65-115); Osmolality Calculated 327 mOsm/kg (285-295); Potassium 4.4 mmol/L (3.5-5.1); Sodium 140 mmol/L (136-145); Total Bilirubin 0.2 mg/dL (0.15-1.2); Total Protein 5.5 g/dL (6.6-8.7)
--- NOTE | 2022-03-07 01:12 | PC.NURSE ---
Pt continues to have intermittent nausea and vomiting between times of sleep. Dr. Swenson at bedside.
--- NOTE | 2022-03-07 01:13 | PC.NURSE ---
Pt taken to CT with assistance of myself and another RN. Pt tolerated procedure well.
[2022-03-07 01:19] LABS: Adenovirus Not Detected (NOT DETECT); Chlamydia Pneumoniae Not Detected (NOT DETECT); Coronavirus 229E,HKU1,NL63,OC4 Not Detected (NOT DETECT); Human Metapneumovirus Not Detected (NOT DETECT); Human Rhinovirus/Enterovirus Not Detected (NOT DETECT); Influenza A Not Detected (NOT DETECT); Influenza A H1 Not Detected (NOT DETECT); Influenza A H1-2009 Not Detected (NOT DETECT); Influenza A H3 Not Detected (NOT DETECT); Influenza B Not Detected (NOT DETECT); Mycoplasma Pneumoniae Not Detected (NOT DETECT); Parainfluenza Virus Type 1 Not Detected (NOT DETECT); Parainfluenza Virus Type 2 Not Detected (NOT DETECT); Parainfluenza Virus Type 3 Not Detected (NOT DETECT); Parainfluenza Virus Type 4 Not Detected (NOT DETECT); Respiratory Syncytial Virus A Not Detected (NOT DETECT); Respiratory Syncytial Virus B Not Detected (NOT DETECT); SARS-COV-2 Not Detected (NOT DETECT)
[2022-03-07 01:20] LABS: Blood Urea Nitrogen 101 mg/dL (6-20)
--- NOTE | 2022-03-07 01:47 | PC.NURSE ---
Pt resting quietly in bed with eyes closed. Respirations are even and unlabored. No complaints at this time.
--- NOTE | 2022-03-07 01:49 | PC.NURSE ---
Dr. Swenson will place orders for an insulin drip.
--- NOTE | 2022-03-07 03:57 | PC.NURSE ---
Pt able to tolerate jellos and soda without becoming nauseated. No complaints at this time.
[2022-03-07 04:34] LABS: Basophils # 0.1 10^3/uL (0.0-0.1); Eosinophils # 0.1 10^3/uL (0.0-0.8); Eosinophils % 0.8 %; Hemoglobin 8.4 g/dL (11.7-16.6); Lymphocytes # 1.3 10^3/uL (0.8-4.8); Lymphocytes % 14.6 %; Mean Corpuscular Hemoglobin 29.9 pg (28.0-34.0); Mean Corpuscular Volume 99.6 fl (80-94); Mean Platelet Volume 10.6 fL (7.4-10.4); Monocytes # 0.7 10^3/uL (0.2-0.9); Monocytes % 7.8 %; Neutrophils # 6.87 10^3/uL (1.8-7.7); Neutrophils % 75.4 %; Nucleated Red Blood Cells % 0 %; Platelet Count 436 10^3/cmm (130-400); Red Blood Count 2.81 10^6/uL (4.1-5.3); Red Cell Distribution Width 13.2 % (12.1-15.1); White Blood Count 9.1 10^3/uL (4.0-10.0)
[2022-03-07 04:58] LABS: Magnesium 2.2 mg/dL (1.7-2.3)
[2022-03-07 05:21] LABS: Glucose Point of Care 227 mg/dL (70-110)
[2022-03-07] MEDS: FUROsemide 10 mg/mL SDV 2mL 20 MG IVP (05:26)
--- NOTE | 2022-03-07 05:35 | PC.NURSE ---
Blood pressure of 196 systolic immediately following getting up to commode.
[2022-03-07 06:30] LABS: Alanine Aminotransferase 28 U/L (0-41); Albumin Level 2.6 g/dL (3.5-5.2); Alkaline Phosphatase 106 IU/L (40-130); Calcium 8.1 mg/dL (8.5-10.5); Carbon Dioxide 11 mmol/L (22-29); Chloride 104 mmol/L (98-107); Globulin 3.6 g/dL (1.3-4.6); Glomerular Filtration Rate 7.6 mL/min (90-130); Glucose 216 mg/dL (65-115); Osmolality Calculated 326 mOsm/kg (285-295); Sodium 139 mmol/L (136-145); Total Bilirubin 0.2 mg/dL (0.15-1.2); Total Protein 6.2 g/dL (6.6-8.7)
[2022-03-07 06:31] LABS: Anion Gap 28.6 (5-19); Aspartate Amino Transferase 22 U/L (0-40); Potassium 4.6 mmol/L (3.5-5.1)
[2022-03-07 06:32] LABS: Blood Urea Nitrogen 100 mg/dL (6-20); Creatine Phosphokinase 343 U/L (39-308)
[2022-03-07 07:47] LABS: Glucose Point of Care 221 mg/dL (70-110)
--- NOTE | 2022-03-07 08:16 | PM.CONSULT ---
Providers/Reason For Consult Consulting Physician/Specialty*: Chuy Telles md / telenephrology Reason for Consult*: melvin, met acidosis Requesting Physician: Dr Swenson Attending Physician: Margarette Swenson MD Primary Care Provider: Amrit Antoine MD History of Present Illness History of Present Illness Fabián Ortiz Jr is a 41 year old male admitted yesterday w/ edema, MAYS and MELVIN. 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 He has known CKD. cr 1.5 in apr 2020, cr 2 in apr 29 Review of Systems Narrative: weak, swollen, MAYS, sob, edema, agudelo, leg pains. knows he has DM retinopathy Medications/Allergies Home Medications Medication Instructions Recorded Confirmed Last Taken Type diphenhydramine HCl 25 mg capsule 25 mg PO TID PRN Allergic Reaction 08/28/19 03/06/22 Unknown History (Benadryl) glucagon (human recombinant) 1 mg 1 mg SUBCUT Q20M PRN hypoglycemia 02/13/20 03/06/22 Unknown Rx solution for injection (Glucagon #1 ea Emergency Kit) amlodipine 2.5 mg tablet 2.5 mg PO DAILY #90 tabs 04/23/21 03/06/22 Unknown Rx scopolamine base 1 mg over 3 days 1 patch transdermal Q3D PRN nausea 05/21/21 03/06/22 Unknown Rx transdermal patch and vomiting #10 ea flash glucose sensor (FreeStyle See Rx Instructions .Route 06/20/21 03/06/22 Unknown Rx Alicia 14 Day Sensor) .COMPLEX #1 ea insulin lispro 100 unit/mL 20 unit (0.2 mL) SUBCUT TID 30 01/26/22 03/06/22 Unknown Rx subcutaneous pen (Humalog KwikPen days #15 mL (U-100) Insulin) hydrocodone 5 mg-acetaminophen 325 1 tab PO Q6H PRN pain 30 days #120 02/23/22 03/06/22 Unknown Rx mg tablet tabs insulin detemir U-100 100 unit/mL 20 unit (0.2 mL) SUBCUT DAILY #15 02/23/22 03/06/22 03/04/22 21:00 Rx (3 mL) subcutaneous pen (Levemir mL FlexTouch U-100 Insulin) Allergies Allergy/AdvReac Type Severity Reaction Status Date / Time cefaclor [From Ceclor] Allergy rash Verified 05/07/21 11:28 metoclopramide [From Reglan] Allergy bites his Verified 05/07/21 11:28 tongue prochlorperazine Allergy no IV just Verified 05/07/21 11:28 [From Compazine] oral Current Medications Generic Name Dose Route Start Last Admin Trade Name Freq PRN Reason Stop Dose Admin Furosemide 20 mg 03/07/22 05:15 03/07/22 05:26 Furosemide 10 Mg/Ml Sdv 2ml IVP 20 mg Q12H STONE Administration Heparin Sodium (Porcine) 5,000 unit 03/06/22 21:30 03/06/22 21:58 Heparin 5,000 Unit/Ml Inj 1 Ml SUBCUT 5,000 unit Q12H STONE Administration Insulin Glargine 20 unit 03/06/22 22:00 03/07/22 00:31 Insulin Glargine 100 Units/1 Ml SUBCUT 20 unit BEDTIME STONE Administration Ondansetron HCl 4 mg 03/06/22 21:26 03/06/22 21:49 Ondansetron 2 Mg/Ml Sdv 2 Ml IVP 4 mg Q6H PRN Administration NAUSEA AND VOMITING PFSH Acute PFSH: Medical History (Updated 03/07/22 @ 08:24 by Jeremy Telles MD) Depression Diabetes 1.5, managed as type 1 Diabetic peripheral neuropathy Surgical History (Updated 03/07/22 @ 06:55 by Margarette Swenson MD) History of cholecystectomy Social History Smoking and tobacco status: never smoked Alcohol intake: former Vitals/I&O/Wt Last Vital Signs Temp 99.2 F 03/07/22 03:55 Pulse 85 03/07/22 06:30 Resp 15 03/07/22 06:30 BP 173/105 03/07/22 06:30 Pulse Ox 100 03/07/22 06:30 O2 Del Method 03/07/22 06:30 O2 Flow Rate 2 03/07/22 06:30 FiO2 2 03/07/22 00:57 03/06/22 03/07/22 03/07/22 22:59 06:59 14:59 Intake Total 360 / 360 Output Total 600 / 600 Balance -240 / -240 Weight last 48 hrs Weight 65 kg Weight 66.497 kg Weight 61.235 kg Physical Exam Narrative: in bed, sob, sitting uo, nco2 vs noted- bp elevated heent- nc/at, eomi, anicteric neck supple lungs dull bases heart reg abd soft, nt, nd, + bs ext b/l edema, poor pulses, rt great toe amp, left foot missing distal part of 2 toes Urinary Catheter Management: Hernandez: Cath Placed During This Visit: yes Reason for Continuing Indwelling Catheter: Accurate Measurement of Urinary Output in Critically Ill Patients Urinary Catheter Date of Insertion: 03/06/22 Urinary Catheter Time of Insertion: 22:00 Data : 03/07/22 03:50 03/07/22 05:34 A&P Assessment and plan (1) MELVIN (acute kidney injury): 41 yr old man hep c, htn, iddm x 28 yrs, CKD wzutm2s in 2020 w/ cr 2. pt here now w/ anasarca and MELVIN 1. MELVIN- D Dx includes progression of dm, htn nephrosclersosis -eval for other glomerulae disease -u/a w/ 3+ prot, 2+ blood, 5-10 rbc, 10-15 wbc -ur na 51 -check spep/ sife -ck 343 2. inc AGMA from DKA and MELVIN- monitor on insulin and lasix -pt is well compensated 3. dm control w/ insulin 4. anemia eval 5. volume overload- lasix, echo, venous doppler -if does not improve w/ lasix, he may need to start HD soon seen and examined w / rN -telehealth visit time spent 50 min Status: Acute Plan see above Consult Attestations Medical Necessity Statement: melvin, chf, DKA Time Spent in Patient Care: Greater than 35 minutes (>than 50% of time spent in counselling and/or direct pt care on unit). Coding Level of Care Code Acute International Trade Manager for Rafi Zavala Diagnoses MELVIN (acute kidney injury) N17.9
[2022-03-07] MEDS: heparin 5,000 unit/mL INJ 1 mL 5000 UNIT SUBCUT ×2 (08:33→20:45)
[2022-03-07] MEDS: insulin lispro 100 unit/1 mL SUBCUT (08:33)
[2022-03-07] MEDS: pantoprazole DR 40 mg Tablet PO (08:33)
--- NOTE | 2022-03-07 09:02 | PC.NURSE ---
Dr. Swenson called, gave t.o. for insulin drip, call HCP with blood glucose prior to starting insulin drip to determine fluids
[2022-03-07] MEDS: FUROsemide 10 mg/mL SDV 10mL 60 MG IVP ×2 (09:10→20:45)
[2022-03-07] MEDS: b-complex-vitamin c Tablet 1 EACH PO (09:10)
[2022-03-07] MEDS: insulin regular-human 250 UNIT in sodium chloride 0.9% 250 ML 7.07 UNIT IV (09:47)
[2022-03-07 09:55] LABS: Thyroid Stimulating Hormone 1.84 uIU/mL (0.27-4.20); Uric Acid 7.2 mg/dL (3.4-7.0); Vitamin B12 571 pg/mL (232-1245)
[2022-03-07 09:59] LABS: Glucose Point of Care 280 mg/dL (70-110)
[2022-03-07] MEDS: ondansetron 2 mg/ML SDV 2 mL 4 MG IVP (10:03)
[2022-03-07 10:10] LABS: Estmated Average Glucose 154
[2022-03-07] MEDS: potassium chloride ER 20 mEq Tablet 40 MEQ PO (10:52)
[2022-03-07 11:52] LABS: Glucose Point of Care 149 mg/dL (70-110)
--- NOTE | 2022-03-07 13:17 | PM.PN ---
Subjective Subjective: Patient is type I diabetic Insulin drip has been started which is for treatment of DKA Serum ketones positive Check hemoglobin A1c panel Unfortunately we cannot use IV fluids because we are diuresing with Lasix Replenish his potassium We will recheck BMP right now He is making good amount of urine potassium 4.6 No signs of uremia Appreciate nephro recommendations Closely monitor for worsening of kidney function and signs of uremia Vitals/I&O/Wt Last Vital Signs Temp 99.2 F 03/07/22 03:55 Pulse 88 03/07/22 10:30 Resp 22 H 03/07/22 10:30 BP 177/110 03/07/22 10:30 Pulse Ox 99 03/07/22 08:00 O2 Del Method 03/07/22 06:30 O2 Flow Rate 2 03/07/22 06:30 FiO2 2 03/07/22 00:57 03/06/22 03/07/22 03/07/22 22:59 06:59 14:59 Intake Total 360 / 360 300 / 300 Output Total 600 / 600 Balance -240 / -240 300 / 300 Weight last 48 hrs Weight 65 kg Weight 66.497 kg Weight 61.235 kg Physical Exam Narrative: For signs of fluid overload Anasarca Adequate urine output Awake and alert Currently on 2 L nasal cannula Crackles positive No wheezing S1, S2 Awake and alert Nonfocal neuro exam Urinary Catheter Management: Hernandez: Cath Placed During This Visit: yes Reason for Continuing Indwelling Catheter: Accurate Measurement of Urinary Output in Critically Ill Patients Urinary Catheter Date of Insertion: 03/06/22 Urinary Catheter Time of Insertion: 22:00 Data : 03/07/22 03:50 03/07/22 05:34 A&P Assessment and plan (1) MELVIN (acute kidney injury): Status: Acute (2) Pulmonary edema: Status: Acute (3) Acute CHF (congestive heart failure): Status: Acute (4) Acute renal failure: Status: Acute (5) DKA, type 1: Status: Acute (6) Hypertensive emergency: Status: Acute (7) Anemia: Status: Acute (8) Diabetic peripheral neuropathy: Status: Acute (9) Diabetes 1.5, managed as type 1: Status: Acute Plan Type I diabetic DKA Start insulin Cannot use liberal fluids because of fluid overloaded state Currently is on Lasix Fluid overload Concern for CHF exacerbation versus acute on chronic disease worsening Monitor urine output No acute indication for dialysis Appreciate nephro recommendations Currently on Lasix Will check echo Hypertensive emergency start Cardene drip Acute hypoxia requiring 2 L of oxygen secondary to fluid overload Pulm edema We will follow-up with echo Recheck BMP Will make patient n.p.o. until anion gap closes Attestations Medical Necessity Statement*: Continue ICU management Time Spent in Patient Care: 30 Coding Level of Care Code Acute Tapering Machine Operator for Chg Fwd Diagnoses MELVIN (acute kidney injury) N17.9 Pulmonary edema J81.1 Acute CHF (congestive heart failure) I50.9 Acute renal failure N17.9 DKA, type 1 E10.10 Hypertensive emergency I16.1 Anemia D64.9 Diabetic peripheral neuropathy E11.42 Diabetes 1.5, managed as type 1 E13.9
[2022-03-07 13:19] LABS: Glucose Point of Care 67 mg/dL (70-110)
[2022-03-07 13:42] LABS: Alanine Aminotransferase 24 U/L (0-41); Alkaline Phosphatase 89 IU/L (40-130); Aspartate Amino Transferase 17 U/L (0-40); Calcium 8.2 mg/dL (8.5-10.5); Carbon Dioxide 20 mmol/L (22-29); Chloride 103 mmol/L (98-107); Globulin 2.8 g/dL (1.3-4.6); Glomerular Filtration Rate 7.9 mL/min (90-130); Glucose 79 mg/dL (65-115); Osmolality Calculated 317 mOsm/kg (285-295); Sodium 139 mmol/L (136-145); Total Bilirubin 0.3 mg/dL (0.15-1.2); Total Protein 5.8 g/dL (6.6-8.7)
[2022-03-07 13:49] LABS: Hepatitis B Surface Antigen Non-Reactive (Nonreactive); Hepatitis C Virus Antibody Reactive (Nonreactive)
[2022-03-07 13:57] LABS: Folate Level 11.9 ng/mL (4.5-32.2)
[2022-03-07] MEDS: hyDRALAzine 10 mg Tablet PO ×2 (14:10→20:45)
[2022-03-07] MEDS: sodium bicarbonate 150 MEQ in dextrose 5% 1,000 ML 100 MEQ IV (14:11)
[2022-03-07 14:25] LABS: Blood Urea Nitrogen 97 mg/dL (6-20)
[2022-03-07 15:24] LABS: Hepatitis B Surface AB < 3.5 (11.5-1000)
[2022-03-07 15:35] LABS: Glucose Point of Care 76 mg/dL (70-110)
--- NOTE | 2022-03-07 16:35 | PC.NURSE ---
glucose at approximately was 67, Dr. Ron gave v.o. to stop insulin drip. glucose at 1530 76, Dr. Ron stopped insulin drip and put in orders per MAR
[2022-03-07 17:11] LABS: Anion Gap 19.5 (5-19); Carbon Dioxide 21 mmol/L (22-29); Chloride 104 mmol/L (98-107); Glomerular Filtration Rate 7.6 mL/min (90-130); Glucose 68 mg/dL (65-115); Osmolality Calculated 318 mOsm/kg (285-295); Potassium 4.5 mmol/L (3.5-5.1); Sodium 140 mmol/L (136-145)
[2022-03-07 17:15] LABS: Glucose Point of Care 87 mg/dL (70-110)
[2022-03-07 17:29] LABS: Blood Urea Nitrogen 95 mg/dL (6-20)
--- NOTE | 2022-03-07 17:32 | PC.NURSE ---
Critical lab results obtained and MD notified. Primary nurse notified.
[2022-03-07 20:37] LABS: Glucose Point of Care 79 mg/dL (70-110)
[2022-03-07] MEDS: metoprolol tartrate 25 mg Tablet PO (20:45)
[2022-03-07 20:55] LABS: Anion Gap 21.5 (5-19); Calcium 7.9 mg/dL (8.5-10.5); Carbon Dioxide 19 mmol/L (22-29); Chloride 102 mmol/L (98-107); Glomerular Filtration Rate 8.2 mL/min (90-130); Glucose 68 mg/dL (65-115); Osmolality Calculated 312 mOsm/kg (285-295); Potassium 4.5 mmol/L (3.5-5.1); Sodium 138 mmol/L (136-145)
--- NOTE | 2022-03-07 20:59 | ECG_ITS ---
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 Measurements Intervals [place] Rate: 76 P: 27 [place]: 148 QRS: 50 QRSD: 87 T: 154 QT: 454 QTc: 513 Interpretive Statements SINUS RHYTHM MODERATE T-WAVE ABNORMALITY, CONSIDER LATERAL ISCHEMIA [-0.1+ mV T-WAVE IN I/aVL/V5/V6] Compared to ECG 03/06/2022 19:36:31 T-wave abnormality now present Possible ischemia now present Sinus tachycardia no longer present Electronically Signed On 03-08-2022 10:35:43 CDT by Vaibhav Orlando M.D. [id number]
[2022-03-07 21:04] LABS: Blood Urea Nitrogen 90 mg/dL (6-20)
--- NOTE | 2022-03-07 21:26 | USCV_ITS ---
Fabián Ortiz Age: 41 Gender: M : 1980 Exam Date: 03/07/2022 08:02 Ordering Phys: Margarette Swenson MD Technologist: Dat Wilson Exam Location: [facility] [place] Indication: chf BP: 173 / 111 HR: 56 Rhythm: Sinus Technical Quality: Adequate MEASUREMENTS (Male / Female) Normal Values 2D ECHO LV Diastolic Diameter PLAX 5.4 cm 4.2 - 5.9 / 3.9 - 5.3 cm LV Systolic Diameter PLAX 3.7 cm IVS Diastolic Thickness 1.2 cm 0.6 - 1.0 / 0.6 - 0.9 cm IVS Systolic Thickness 1.9 cm LVPW Diastolic Thickness 1.4 cm 0.6 - 1.0 / 0.6 - 0.9 cm LVPW Systolic Thickness 1.7 cm LVOT Diameter 2.0 cm LV Ejection Fraction 2D Teich 57.7 % LV Ejection Fraction MOD 2C 57.3 % LV Ejection Fraction 2C AL 56.7 % LA Diameter 4.4 cm M-MODE LV Diastolic Diameter MM 5.7 cm 4.2 - 5.9 / 3.9 - 5.3 cm IVS Diastolic Thickness MM 1.0 cm 0.6 - 1.0 / 0.6 - 0.9 cm LVPW Diastolic Thickness MM 1.3 cm 0.6 - 1.0 / 0.6 - 0.9 cm RV Diastolic Diameter MM 2.0 cm Aortic Annulus Diameter 3.6 cm LA Ao Ratio MM 1.2 MV E Point Septal Separation 1.6 cm DOPPLER AV Peak Velocity 142.0 cm/s LVOT Peak Velocity 86.0 cm/s AV Area Cont Eq vti 1.8 cm squared AV Area Cont Eq pk 1.9 cm squared MV Area PHT 5.0 cm squared Mitral E to A Ratio 2.0 MV E' Velocity 76.5 cm/s Mitral E to MV E' Ratio 16.3 Mitral E to LV E' Lateral Ratio 16.5 Mitral E to LV E' Septal Ratio 16.1 TR Peak Velocity 286.0 cm/s TR Peak Gradient 32.7 mmHg TV Peak E Velocity 107.0 cm/s Right Atrial Pressure 15.0 mmHg Pulmonary Artery Systolic Pressu 47.7 mmHg PV Peak Velocity 114.0 cm/s FINDINGS Left Ventricle Normal left ventricular size and systolic function, EF 64 %. No regional wall motion abnormalities. Mild left ventricular hypertrophy. Grade III/IV diastolic dysfunction (restrictive filling pattern), severely elevated filling pressures. Right Ventricle The right ventricle is normal in size and function. Right Atrium The right atrium is normal in size. Left Atrium Moderately increased left atrial size. Mitral Valve Moderate to severe mitral valve regurgitation. Thickened mitral valve. Aortic Valve Trace to mild aortic valve regurgitation. Tricuspid Valve Mild tricuspid valve regurgitation. Pulmonic Valve Mild pulmonary valve regurgitation. Pericardium Normal pericardium without effusion. Aorta Normal aortic annulus size. IVC Dilated IVC with decreased respiratory variation. CONCLUSIONS Normal left ventricular size and systolic function, EF 64 %. No regional wall motion abnormalities. Mild left ventricular hypertrophy. Grade III/IV diastolic dysfunction (restrictive filling pattern), severely elevated filling pressures. Moderate to severe mitral valve regurgitation. Thickened mitral valve. Moderately increased left atrial size. Trace to mild aortic valve regurgitation. Mild tricuspid valve regurgitation. Estimated pulmonary artery peak systolic pressure 48 mmHg There is no pericardial effusion. There are no intracardiac masses. No similar previous studies are available for comparison Dr Alissa Kenney MD [facility] (Electronically Signed) Final Date: 09 March 2022 08:29 S
--- NOTE | 2022-03-07 22:10 | PC.NURSE ---
Pt's stool contains undigested jello.
[2022-03-07 22:19] LABS: Glucose Point of Care 252 mg/dL (70-110)
[2022-03-08] VITALS (48 sets, daily range): BP systolic 109–168; BP diastolic 75–107; PULSE 70–97; RESP 15–27; TEMP 36.9–37; O2SAT 94–99
[2022-03-08 00:14] LABS: Glucose Point of Care 306 mg/dL (70-110)
[2022-03-08] MEDS: insulin lispro 100 unit/1 mL SUBCUT ×4 (00:17→20:09)
--- NOTE | 2022-03-08 01:11 | PC.NURSE ---
Pt tells me that his sugar is high and he will start vomiting if he doesn't get insulin. Glucose 306. Dr. Swenson approved pt getting 7 units of insulin as he requests. Sliding scale calls for 10 units, but patient states that he cannot take that much because it will bottom him out.
--- NOTE | 2022-03-08 02:16 | PC.NURSE ---
Pt resting quietly in bed with eyes closed. Respirations are even and unlabored. No complaints of nausea at this time.
--- NOTE | 2022-03-08 03:36 | PC.NURSE ---
Pt resting quietly in bed eating sugar-free jello and drinking a diet soda. Physical assessment remains unchanged. No complaints of nausea.
--- NOTE | 2022-03-08 03:41 | PC.NURSE ---
Pt does not wish to take a bath at this time. He is going to let me know if he wishes to get cleaned up.
[2022-03-08 04:10] LABS: Basophils # 0.1 10^3/uL (0.0-0.1); Basophils % 0.9 %; Eosinophils # 0.2 10^3/uL (0.0-0.8); Eosinophils % 1.7 %; Hemoglobin 8.2 g/dL (11.7-16.6); Lymphocytes # 2.1 10^3/uL (0.8-4.8); Lymphocytes % 21.8 %; Mean Corpuscular HGB Conc 34.2 g/dL (30.0-36.0); Mean Corpuscular Hemoglobin 29.8 pg (28.0-34.0); Mean Corpuscular Volume 87.3 fl (80-94); Mean Platelet Volume 11.2 fL (7.4-10.4); Monocytes # 0.9 10^3/uL (0.2-0.9); Monocytes % 9.4 %; Neutrophils # 6.46 10^3/uL (1.8-7.7); Neutrophils % 65.9 %; Nucleated Red Blood Cells % 0 %; Platelet Count 423 10^3/cmm (130-400); Red Blood Count 2.75 10^6/uL (4.1-5.3); Red Cell Distribution Width 13.2 % (12.1-15.1); White Blood Count 9.8 10^3/uL (4.0-10.0)
[2022-03-08 04:50] LABS: Calcium 7.6 mg/dL (8.5-10.5); Parathyroid Hormone 314.9 pg/mL (15-65)
[2022-03-08 05:00] LABS: Alanine Aminotransferase 22 U/L (0-41); Albumin Level 2.8 g/dL (3.5-5.2); Alkaline Phosphatase 85 IU/L (40-130); Anion Gap 18.1 (5-19); Aspartate Amino Transferase 16 U/L (0-40); Calcium 7.8 mg/dL (8.5-10.5); Carbon Dioxide 22 mmol/L (22-29); Chloride 101 mmol/L (98-107); Creatine Phosphokinase 206 U/L (39-308); Ferritin 98 ng/mL (30-400); Globulin 2.8 g/dL (1.3-4.6); Glomerular Filtration Rate 7.9 mL/min (90-130); Glucose 103 mg/dL (65-115); Iron 67 ug/dL (59-158); Magnesium 2.1 mg/dL (1.7-2.3); Osmolality Calculated 312 mOsm/kg (285-295); Phosphorus 7.4 mg/dL (2.5-4.5); Potassium 4.1 mmol/L (3.5-5.1); Sodium 137 mmol/L (136-145); Total Bilirubin 0.2 mg/dL (0.15-1.2); Total Iron Binding Capacity 231 mcg/dl; Total Protein 5.6 g/dL (6.6-8.7); Unsaturated Iron Binding 164 ug/dL (112-347)
[2022-03-08 05:16] LABS: Blood Urea Nitrogen 90 mg/dL (6-20)
--- NOTE | 2022-03-08 06:05 | PC.NURSE ---
Pt agreeable to catheter care, but refuses to clean himself or allow me to bathe him.
[2022-03-08 06:24] LABS: 25 Hydroxy Vitamin D 80 ng/mL (30-100)
[2022-03-08 07:33] LABS: Glucose Point of Care 40 mg/dL (70-110)
[2022-03-08] MEDS: metoprolol tartrate 25 mg Tablet PO (08:34)
[2022-03-08] MEDS: hyDRALAzine 10 mg Tablet PO (08:34)
[2022-03-08] MEDS: b-complex-vitamin c Tablet 1 EACH PO (08:34)
[2022-03-08] MEDS: FUROsemide 10 mg/mL SDV 10mL 60 MG IVP (08:34)
[2022-03-08] MEDS: pantoprazole DR 40 mg Tablet PO (08:35)
[2022-03-08] MEDS: heparin 5,000 unit/mL INJ 1 mL 5000 UNIT SUBCUT ×2 (08:35→20:30)
--- NOTE | 2022-03-08 08:45 | PM.PN ---
Subjective Subjective: hypoglycemic episode this morning/ overnight. no agudelo, n/v/f/d. has anasraca. good uop Medications: Reviewed: Yes Medication Review Details: Current Medications Acetaminophen (Acetaminophen 325 Mg Tablet) 650 mg PO Q6H PRN PRN Reason: MILD PAIN Dextrose (Dextrose 50% Syringe 50 Ml) 25 ml IVP ONCE PRN; Protocol PRN Reason: hypoglycemia protocol Dextrose (Dextrose 50% Syringe 50 Ml) 50 ml IVP PRN PRN; Protocol PRN Reason: hypoglycemia protocol Dextrose (Dextrose 50% Syringe 50 Ml) 25 ml IVP ONCE PRN; Protocol PRN Reason: hypoglycemia protocol Dextrose (Dextrose 50% Syringe 50 Ml) 25 ml IVP ONCE PRN; Protocol PRN Reason: hypoglycemia protocol Dextrose (Dextrose 50% Syringe 50 Ml) 50 ml IVP PRN PRN; Protocol PRN Reason: hypoglycemia protocol Furosemide (Furosemide 10 Mg/Ml Sdv 10ml) 60 mg IVP Q12H [facility] Last Admin: 03/08/22 08:34 Dose: 60 mg Glucagon (Glucagon 1 Mg/Ml Inj 1 Ml) 1 mg IM ONCE PRN; Protocol PRN Reason: Adult Acute Hypoglycemia Prot. Glucagon (Glucagon 1 Mg/Ml Inj 1 Ml) 1 mg IM ONCE PRN; Protocol PRN Reason: Adult Acute Hypoglycemia Prot Heparin Sodium (Porcine) (Heparin 5,000 Unit/Ml Inj 1 Ml) 5,000 unit SUBCUT Q12H [facility] Last Admin: 03/08/22 08:35 Dose: 5,000 unit Hydralazine HCl (Hydralazine 10 Mg Tablet) 10 mg PO TID [facility] Last Admin: 03/08/22 08:34 Dose: 10 mg Dextrose (D5w) 500 mls @ 100 mls/hr IV ONCE PRN; Protocol PRN Reason: Adult Acute Hypoglycemia Prot Dextrose (D5w) 500 mls @ 100 mls/hr IV ONCE PRN; Protocol PRN Reason: Adult Acute Hypoglycemia Prot Nicardipine/Sodium Chloride (Cardene) 20 mg in 200 mls @ 0 mls/hr IV .Q0M [facility]; Protocol Potassium Chloride/Dextrose/Sod Cl (Dextrose 5%-Ns + Kcl 20) 20 meq in 1,000 mls @ 75 mls/hr IV .[id number] [facility] Last Admin: 03/08/22 07:16 Dose: Not Given Insulin Glargine (Insulin Glargine 100 Units/1 Ml) 20 unit SUBCUT BEDTIME [facility] Last Admin: 03/07/22 20:45 Dose: 20 unit Insulin Human Lispro (Insulin Lispro 100 Unit/1 Ml) 0 unit SUBCUT WM&BEDTIME [facility]; Protocol Last Admin: 03/08/22 00:17 Dose: 7 unit Metoprolol Tartrate (Metoprolol Tartrate 25 Mg Tablet) 25 mg PO BID@0900,2100 [facility] Last Admin: 03/08/22 08:34 Dose: 25 mg Multivitamins (U-Ffvqwbc-Murarrl C Tablet) 1 each PO DAILY [facility] Last Admin: 03/08/22 08:34 Dose: 1 each Ondansetron HCl (Ondansetron 2 Mg/Ml Sdv 2 Ml) 4 mg IVP Q6H PRN PRN Reason: NAUSEA AND VOMITING Last Admin: 03/07/22 10:03 Dose: 4 mg Pantoprazole Sodium (Pantoprazole Dr 40 Mg Tablet) 40 mg PO DAILY [facility] Last Admin: 03/08/22 08:35 Dose: 40 mg Vitals/I&O/Wt Last Vital Signs Temp 98.4 F 03/08/22 04:00 Pulse 81 03/08/22 08:00 Resp 23 H 03/08/22 08:00 BP 168/95 03/08/22 08:00 Pulse Ox 97 03/08/22 08:00 O2 Del Method 03/08/22 06:00 O2 Flow Rate 2 03/07/22 23:00 FiO2 2 03/07/22 00:57 03/07/22 03/08/22 03/08/22 22:59 06:59 14:59 Intake Total 1882.5 / 2182.5 480 / 2662.5 300 / 300 Output Total 3000 / 3000 550 / 3550 Balance -1117.5 / -817.5 -70 / -887.5 300 / 300 Weight last 48 hrs Weight 67.495 kg Weight 65 kg Weight 66.497 kg Weight 61.235 kg Physical Exam Narrative: in bed, more comfortable, nco2 vs noted- bp elevated heent- nc/at, eomi, anicteric neck supple lungs dull bases heart reg abd soft, nt, nd, + bs ext b/l edema, poor pulses, rt great toe amp, left foot missing distal part of 2 toes Urinary Catheter Management: Hernandez: Cath Placed During This Visit: yes Reason for Continuing Indwelling Catheter: Accurate Measurement of Urinary Output in Critically Ill Patients Urinary Catheter Date of Insertion: 03/06/22 Urinary Catheter Time of Insertion: 22:00 Data : 03/08/22 03:30 03/08/22 03:30 A&P Assessment and plan (1) MELVIN (acute kidney injury): 41 yr old man hep c, htn, iddm x 28 yrs, CKD [id number] in 2020 w/ cr 2. pt here now w/ anasarca and MELVIN 1. MELVIN- D Dx includes progression of dm, htn nephrosclersosis -eval for other glomerulae disease -u/a w/ 3+ prot, 2+ blood, 5-10 rbc, 10-15 wbc -ur na 51 -check spep/ sife -ck 343 2. inc AGMA from DKA and MELVIN- monitor on insulin and lasix -improved 3. dm control w/ insulin 4. htn- wean off of cardene 4. anemia eval 5. volume overload- lasix, echo, venous doppler -if does not improve w/ lasix, he may need to start HD soon seen and examined w / rN -telehealth visit time spent 30 min Status: Acute Plan see above Attestations Medical Necessity Statement*: ckd , melvin, chf, htn urgency Time Spent in Patient Care: 16 - 35 minutes (>than 50% of time spent in counselling and/or direct pt care on unit). Coding Level of Care Code Acute Solar Water Heater Installer for anastacia Zavala Diagnoses MELVIN (acute kidney injury) N17.9
[2022-03-08 09:31] LABS: Glucose Point of Care 197 mg/dL (70-110)
[2022-03-08 11:17] LABS: Glucose Point of Care 201 mg/dL (70-110)
[2022-03-08] MEDS: hyDRALAzine 25 mg Tablet PO ×2 (14:08→20:09)
[2022-03-08] MEDS: FUROsemide 10 mg/mL SDV 4mL 40 MG IVP ×2 (14:08→20:09)
--- NOTE | 2022-03-08 14:12 | P.PN_ITS ---
Subjective Subjective: Cardene drip titrated off Urine sample 24-hour sample to be sent No overnight events Rule out nephrotic syndrome ? Nephro seen him today Vitals/I&O/Wt Last Vital Signs Temp 98.4 F 03/08/22 04:00 Pulse 75 03/08/22 12:30 Resp 17 03/08/22 12:30 BP 119/79 03/08/22 12:30 Pulse Ox 98 03/08/22 12:30 O2 Del Method 03/08/22 08:00 O2 Flow Rate 2 03/08/22 08:00 FiO2 2 03/07/22 00:57 03/07/22 03/08/22 03/08/22 22:59 06:59 14:59 Intake Total 1882.5 / 2182.5 480 / 2662.5 600 / 600 Output Total 3000 / 3000 550 / 3550 Balance -1117.5 / -817.5 -70 / -887.5 600 / 600 Weight last 48 hrs Weight 67.495 kg Weight 65 kg Weight 66.497 kg Weight 61.235 kg Physical Exam Narrative: Pt resting well anasarca present abdomen soft oedema of legs slightly improved saturating well non focal neuro exam s1s2 lungs sound clear Urinary Catheter Management: Hernandez: Cath Placed During This Visit: yes Reason for Continuing Indwelling Catheter: Accurate Measurement of Urinary Output in Critically Ill Patients Urinary Catheter Date of Insertion: 03/06/22 Urinary Catheter Time of Insertion: 22:00 Data : 03/08/22 03:30 03/08/22 03:30 A&P Assessment and plan (1) MELVIN (acute kidney injury): Status: Acute (2) Pulmonary edema: Status: Acute (3) Acute CHF (congestive heart failure): Status: Acute (4) Acute renal failure: Status: Acute (5) DKA, type 1: Status: Acute (6) Hypertensive emergency: Status: Acute (7) Anemia: Status: Acute (8) Diabetic peripheral neuropathy: Status: Acute Plan DKA: resolved Stopped insulin Currently is on Lasix Fluid overload:- Concern for CHF exacerbation versus acute on chronic disease worsening Monitor urine output No acute indication for dialysis Appreciate nephro recommendations r/o nephrotic syndrome Hypertensive emergency start Cardene drip: bp stable Acute hypoxia requiring 2 L of oxygen secondary to fluid overload Pulm edema We will follow-up with echo Recheck BMP renal dialysis diet full code Attestations Medical Necessity Statement*: continue med management Time Spent in Patient Care: 30 Coding Level of Care Code Acute Business Support Assistant for Chg Fwd Diagnoses MELVIN (acute kidney injury) N17.9 Pulmonary edema J81.1 Acute CHF (congestive heart failure) I50.9 Acute renal failure N17.9 DKA, type 1 E10.10 Hypertensive emergency I16.1 Anemia D64.9 Diabetic peripheral neuropathy E11.42
[2022-03-08 14:58] LABS: Total Volume, Urine 2450 mL
[2022-03-08 15:14] LABS: Urine Protein Random 421 mg/dL
[2022-03-08 15:30] LABS: Urine Total Protein 171.5 mg/dL (0-150); Urine Total Protein 24 Hour 4201.8 mg/24hr (0-150)
[2022-03-08 16:52] LABS: Glucose Point of Care 165 mg/dL (70-110)
[2022-03-08] MEDS: insulin glargine 100 units/1 mL 20 UNIT SUBCUT (20:09)
[2022-03-08 20:12] LABS: Glucose Point of Care 338 mg/dL (70-110)
[2022-03-08] MEDS: metoprolol tartrate 50 mg Tablet PO (20:26)
[2022-03-09] VITALS (48 sets, daily range): BP systolic 111–164; BP diastolic 62–113; PULSE 65–86; RESP 13–28; TEMP 36.5–37; O2SAT 93–100
--- NOTE | 2022-03-09 01:54 | PC.NURSE ---
Patient complains of signs and symptoms of hypoglycemia, patient diaphoretic, pale, and shaky, blood glucose was 36. Patient was able to drink 8 ounces of apple juice, blood glucose recheck at 0125 was 60, patient was able to drink 8 ounces of orange juice. POC glucose recheck at 0142 was 103, and patient voices symptom improvement. Dr. Swenson was made aware and verbal orders to recheck glucose q1 hour for the next four hours.
[2022-03-09 02:32] LABS: Basophils # 0.1 10^3/uL (0.0-0.1); Basophils % 1.2 %; Eosinophils # 0.2 10^3/uL (0.0-0.8); Eosinophils % 2.1 %; Hemoglobin 9.9 g/dL (11.7-16.6); Lymphocytes # 1.8 10^3/uL (0.8-4.8); Lymphocytes % 16.8 %; Mean Corpuscular HGB Conc 35.4 g/dL (30.0-36.0); Mean Corpuscular Hemoglobin 30.7 pg (28.0-34.0); Mean Corpuscular Volume 86.7 fl (80-94); Mean Platelet Volume 10.6 fL (7.4-10.4); Monocytes # 0.8 10^3/uL (0.2-0.9); Monocytes % 7.5 %; Neutrophils % 71.9 %; Nucleated Red Blood Cells % 0 %; Platelet Count 478 10^3/cmm (130-400); Red Blood Count 3.23 10^6/uL (4.1-5.3); Red Cell Distribution Width 13.2 % (12.1-15.1); White Blood Count 10.7 10^3/uL (4.0-10.0)
[2022-03-09 02:56] LABS: Glucose Point of Care 36 mg/dL (70-110)
[2022-03-09 02:56] LABS: Glucose Point of Care 103 mg/dL (70-110)
[2022-03-09 02:56] LABS: Glucose Point of Care 60 mg/dL (70-110)
[2022-03-09 02:56] LABS: Glucose Point of Care 180 mg/dL (70-110)
[2022-03-09] MEDS: FUROsemide 10 mg/mL SDV 4mL 40 MG IVP ×3 (03:04→20:02)
[2022-03-09 03:41] LABS: Alanine Aminotransferase 22 U/L (0-41); Albumin Level 2.7 g/dL (3.5-5.2); Alkaline Phosphatase 97 IU/L (40-130); Anion Gap 23.4 (5-19); Aspartate Amino Transferase 15 U/L (0-40); Calcium 8.1 mg/dL (8.5-10.5); Carbon Dioxide 17 mmol/L (22-29); Chloride 96 mmol/L (98-107); Globulin 3.5 g/dL (1.3-4.6); Glomerular Filtration Rate 7.7 mL/min (90-130); Glucose 141 mg/dL (65-115); Magnesium 1.9 mg/dL (1.7-2.3); Osmolality Calculated 302 mOsm/kg (285-295); Phosphorus 6.1 mg/dL (2.5-4.5); Potassium 4.4 mmol/L (3.5-5.1); Sodium 132 mmol/L (136-145); Total Bilirubin 0.2 mg/dL (0.15-1.2); Total Protein 6.2 g/dL (6.6-8.7)
[2022-03-09 03:44] LABS: Blood Urea Nitrogen 85 mg/dL (6-20)
[2022-03-09 04:18] LABS: Glucose Point of Care 171 mg/dL (70-110)
[2022-03-09 05:04] LABS: Glucose Point of Care 150 mg/dL (70-110)
[2022-03-09 06:14] LABS: Glucose Point of Care 133 mg/dL (70-110)
--- NOTE | 2022-03-09 07:30 | PM.PN ---
Subjective Subjective: feels better. still has edema and some sob Medications: Reviewed: Yes Medication Review Details: Current Medications Acetaminophen (Acetaminophen 325 Mg Tablet) 650 mg PO Q6H PRN PRN Reason: MILD PAIN Dextrose (Dextrose 50% Syringe 50 Ml) 25 ml IVP ONCE PRN; Protocol PRN Reason: hypoglycemia protocol Dextrose (Dextrose 50% Syringe 50 Ml) 50 ml IVP PRN PRN; Protocol PRN Reason: hypoglycemia protocol Dextrose (Dextrose 50% Syringe 50 Ml) 25 ml IVP ONCE PRN; Protocol PRN Reason: hypoglycemia protocol Dextrose (Dextrose 50% Syringe 50 Ml) 25 ml IVP ONCE PRN; Protocol PRN Reason: hypoglycemia protocol Dextrose (Dextrose 50% Syringe 50 Ml) 50 ml IVP PRN PRN; Protocol PRN Reason: hypoglycemia protocol Furosemide (Furosemide 10 Mg/Ml Sdv 4ml) 40 mg IVP Q6H [facility] Last Admin: 03/09/22 03:04 Dose: 40 mg Glucagon (Glucagon 1 Mg/Ml Inj 1 Ml) 1 mg IM ONCE PRN; Protocol PRN Reason: Adult Acute Hypoglycemia Prot. Glucagon (Glucagon 1 Mg/Ml Inj 1 Ml) 1 mg IM ONCE PRN; Protocol PRN Reason: Adult Acute Hypoglycemia Prot Heparin Sodium (Porcine) (Heparin 5,000 Unit/Ml Inj 1 Ml) 5,000 unit SUBCUT Q12H [facility] Last Admin: 03/08/22 20:30 Dose: 5,000 unit Hydralazine HCl (Hydralazine 25 Mg Tablet) 25 mg PO TID [facility] Last Admin: 03/08/22 20:09 Dose: 25 mg Dextrose (D5w) 500 mls @ 100 mls/hr IV ONCE PRN; Protocol PRN Reason: Adult Acute Hypoglycemia Prot Dextrose (D5w) 500 mls @ 100 mls/hr IV ONCE PRN; Protocol PRN Reason: Adult Acute Hypoglycemia Prot Nicardipine/Sodium Chloride (Cardene) 20 mg in 200 mls @ 0 mls/hr IV .Q0M [facility]; Protocol Insulin Glargine (Insulin Glargine 100 Units/1 Ml) 20 unit SUBCUT BEDTIME [facility] Last Admin: 03/08/22 20:09 Dose: 20 unit Insulin Human Lispro (Insulin Lispro 100 Unit/1 Ml) 0 unit SUBCUT WM&BEDTIME [facility]; Protocol Last Admin: 03/09/22 07:19 Dose: Not Given Metoprolol Tartrate (Metoprolol Tartrate 50 Mg Tablet) 50 mg PO BID@0900,2100 [facility] Last Admin: 03/08/22 20:26 Dose: 50 mg Multivitamins (D-Ozzbfir-Ywevktw C Tablet) 1 each PO DAILY [facility] Last Admin: 03/08/22 08:34 Dose: 1 each Ondansetron HCl (Ondansetron 2 Mg/Ml Sdv 2 Ml) 4 mg IVP Q6H PRN PRN Reason: NAUSEA AND VOMITING Last Admin: 03/07/22 10:03 Dose: 4 mg Pantoprazole Sodium (Pantoprazole Dr 40 Mg Tablet) 40 mg PO DAILY [facility] Last Admin: 03/08/22 08:35 Dose: 40 mg Vitals/I&O/Wt Last Vital Signs Temp 97.7 F 03/09/22 04:30 Pulse 75 03/09/22 06:00 Resp 20 H 03/09/22 06:00 BP 115/62 03/09/22 06:00 Pulse Ox 99 03/09/22 06:00 O2 Del Method 03/08/22 20:00 O2 Flow Rate 2 03/08/22 20:00 FiO2 2 03/07/22 00:57 03/08/22 03/09/22 03/09/22 22:59 06:59 14:59 Intake Total 900 / 1500 Output Total 2049 / 2049 1400 / 3450 Balance -1150 / -550 -1400 / -1950 Weight last 48 hrs Weight 64.455 kg Weight 67.495 kg Physical Exam Narrative: in bed, more comfortable, nco2 vs noted- bp low norml heent- nc/at, eomi, anicteric neck supple lungs dull bases heart reg abd soft, nt, nd, + bs ext b/l edema, poor pulses, rt great toe amp, left foot missing distal part of 2 toes Urinary Catheter Management: Hernandez: Cath Placed During This Visit: yes Reason for Continuing Indwelling Catheter: Accurate Measurement of Urinary Output in Critically Ill Patients Urinary Catheter Date of Insertion: 03/06/22 Urinary Catheter Time of Insertion: 22:00 Data : 03/09/22 02:00 03/09/22 02:00 A&P Assessment and plan (1) MELVIN (acute kidney injury): 41 yr old man hep c, htn, iddm x 28 yrs, CKD [id number] in 2021 w/ cr 2. pt here now w/ anasarca and MELVIN 1. MELVIN- D Dx includes progression of dm, htn nephrosclersosis -eval for other glomerulae disease -u/a w/ 3+ prot, 2+ blood, 5-10 rbc, 10-15 wbc -ur na 51 -check spep/ sife -ck 343 -most likely hep c, htn, and dm nephrosclerosis- pt is okay here. he does not need emergent dialysis. however, he will likely need dialysis soon. pt would benefit from a an AVG and start dialysis soon 2. inc AGMA from DKA and MELVIN- monitor on insulin and lasix -may need oral sodium bicarbonate 3. dm control w/ insulin 4. htn- BP now low- dec meds 5. anemia eval -iv iron, epo. await spep/ sife 6. volume overload- lasix, echo, venous doppler seen and examined w / rN -telehealth visit time spent 30 min Status: Acute Plan see above Attestations Medical Necessity Statement*: sob, edema, anemia Time Spent in Patient Care: 16 - 35 minutes (>than 50% of time spent in counselling and/or direct pt care on unit). Coding Level of Care Code Acute Advanced Practice Psychiatric Nurse for Rafi Zavala Diagnoses MELVIN (acute kidney injury) N17.9
[2022-03-09 07:33] LABS: Glucose Point of Care 111 mg/dL (70-110)
--- NOTE | 2022-03-09 08:11 | US_ITS ---
WS: [id number] ULTRASOUND RENAL TECHNIQUE: Ultrasound examination of both kidneys. CLINICAL INFORMATION: rashmi on ckd COMPARISON: None. FINDINGS: RIGHT: Echogenicity: Increased Cortical thickness: 1.4 cm; Normal. Hydronephrosis: None. Perinephric fluid: None. Right kidney measures: 11.3 cm x 5.4 cm x 5.1 cm. LEFT: Echogenicity: Increased. Cortical thickness: 1.4 cm; Normal. Hydronephrosis: None. Perinephric fluid: None. Left kidney measures: 12.1 cm x 6.2 cm x 6.1 cm. Normal visualized aorta. Hernandez catheter. Bladder is decompressed. US/US renal BI* [id number] IMPRESSION: 1. Echogenic kidneys bilaterally likely due to medical renal disease. No hydro nephrosis. 2. No significant cortical atrophy. 3. Hernandez catheter. 4. No other suspicious findings.
[2022-03-09] MEDS: ferric gluconate 125 MG in sodium chloride 0.9% (100 ml) 100 ML 110 MG IV (08:35)
[2022-03-09] MEDS: epoetin alfa 1000 Unit/0.05 mL (ESRD) 6000 UNIT SUBCUT (08:36)
[2022-03-09] MEDS: hyDRALAzine 10 mg Tablet PO ×3 (08:37→20:08)
[2022-03-09] MEDS: calcitriol 0.25 mcg Capsule PO (08:38)
[2022-03-09] MEDS: pantoprazole DR 40 mg Tablet PO (08:38)
[2022-03-09] MEDS: b-complex-vitamin c Tablet 1 EACH PO (08:38)
[2022-03-09] MEDS: metoprolol tartrate 50 mg Tablet PO ×2 (08:38→21:35)
[2022-03-09] MEDS: heparin 5,000 unit/mL INJ 1 mL 5000 UNIT SUBCUT ×2 (08:39→21:34)
[2022-03-09 10:50] LABS: Glucose Point of Care 224 mg/dL (70-110)
[2022-03-09] MEDS: insulin lispro 100 unit/1 mL SUBCUT ×2 (11:58→17:17)
[2022-03-09 12:08] LABS: Anti-streptolysin O <50 IU/mL (<200)
--- NOTE | 2022-03-09 12:11 | PM.PN ---
Subjective Subjective: This morning patient is stating that he is feeling better, currently requiring 2 L He should be weaned off to room air, will ask RT He wants to try a consistent carb diet now I did asked Dr. Yu regarding nephrotic syndrome, he thinks it is likely related to worsening of diabetes, he does not want to use steroids or go for renal biopsy for now, I will try to get in touch with Dr. Hernandez as Dr. Yu wants AV graft down the road, patient stating that he might be able to go to [place] for that Still experiencing diarrhea Creatinine plateaued Vitals/I&O/Wt Last Vital Signs Temp 97.9 F 03/09/22 10:30 Pulse 69 03/09/22 10:30 Resp 19 H 03/09/22 10:30 BP 119/89 03/09/22 10:30 Pulse Ox 98 03/09/22 10:30 O2 Del Method 03/09/22 08:00 O2 Flow Rate 2 03/08/22 20:00 FiO2 2 03/07/22 00:57 03/08/22 03/09/22 03/09/22 22:59 06:59 14:59 Intake Total 900 / 1500 220 / 220 Output Total 2049 / 2049 1400 / 3450 1100 / 1100 Balance -1150 / -550 -1400 / -1950 -880 / -880 Weight last 48 hrs Weight 64.455 kg Weight 67.495 kg Physical Exam Narrative: Patient is saturating well on 2 L Clinical signs of fluid overload improving Abdomen soft Edema of legs improving Adequate urine output No swelling be below his eyes Awake and alert Nonfocal neuro exam Urinary Catheter Management: Hernandez: Cath Placed During This Visit: yes Reason for Continuing Indwelling Catheter: Accurate Measurement of Urinary Output in Critically Ill Patients Urinary Catheter Date of Insertion: 03/06/22 Urinary Catheter Time of Insertion: 22:00 Data : 03/09/22 02:00 03/09/22 02:00 A&P Assessment and plan (1) Acute kidney injury superimposed on chronic kidney disease: Status: Acute (2) Pulmonary edema: Status: Acute (3) DKA, type 1: Status: Acute (4) Hypertensive emergency: Status: Acute (5) Anemia: Status: Acute (6) Diabetic peripheral neuropathy: Status: Acute Plan Generalized anasarca CHF versus renal etiology Appreciate nephro recommendations, Dr. Yu does not want to pursue steroids and renal biopsy yet I will touch base with Dr. Hernandez Creatinine plateaued Adequate urine output No indication for acute dialysis No signs of resistant acidosis or hyperkalemia Is at risk of further worsening of his kidney function Dr. Yu is recommended AV graft so we can start dialysis sooner if needed, patient is willing to travel to [place] We are still waiting on serological tests Echo shows EF 64% with grade 3 diastolic dysfunction For now I would continue p.o. diuretics Type I DKA: Resolved Acute hypoxia related to fluid overload currently on 2 L, wean to room air Hypertensive emergency: Resolved Cardene drip has been turned off Full code Renal dialysis diet DVT prophylaxis on board Attestations Medical Necessity Statement*: Continue medical management Can be transferred out of ICU Time Spent in Patient Care: 30 Coding Level of Care Code Acute Principal Systems Engineer for g Fwd Diagnoses Acute kidney injury superimposed on chronic kidney disease N17.9; N18.9 Pulmonary edema J81.1 DKA, type 1 E10.10 Hypertensive emergency I16.1 Anemia D64.9 Diabetic peripheral neuropathy E11.42
--- NOTE | 2022-03-09 12:38 | PC.SOCIAL ---
IMM Update pg 2 of IMM updated and reviewed w/ patient. Copy provided. Copy placed in chart, date, time & initialed.
[2022-03-09] MEDS: cholestyramine powder 4 gm Pkt PO ×2 (14:14→18:05)
[2022-03-09] MEDS: ondansetron 2 mg/ML SDV 2 mL 4 MG IVP (14:55)
[2022-03-09 15:05] LABS: Glucose Point of Care 223 mg/dL (70-110)
--- NOTE | 2022-03-09 15:14 | PC.NURSE ---
Patient was advanced to carb consistent diet @lunch today. Experienced multiple diarrhea events throughout the day. CDIFF sample collected. Patient experienced vomiting @1500 hrs. Patient states that he usually takes insulin before and after each meal and that it helps with the Vomiting. BG was 230. Waiting for room on [facility].
[2022-03-09 17:11] LABS: Glucose Point of Care 234 mg/dL (70-110)
[2022-03-09 18:23] LABS: Calcium 7.8 mg/dL (8.5-10.5); Carbon Dioxide 20 mmol/L (22-29); Glomerular Filtration Rate 8.2 mL/min (90-130); Glucose 208 mg/dL (65-115)
[2022-03-09 18:32] LABS: Anion Gap 20.8 (5-19); Chloride 95 mmol/L (98-107); Osmolality Calculated 303 mOsm/kg (285-295); Potassium 4.8 mmol/L (3.5-5.1); Sodium 131 mmol/L (136-145)
[2022-03-09 18:48] LABS: Blood Urea Nitrogen 82 mg/dL (6-20)
--- NOTE | 2022-03-09 19:07 | PC.NURSE ---
This nurse clarified t.o. for low dose humalog sliding scale before and after each meal. Dr. Ron to put in orders per HCP preference
[2022-03-09] MEDS: insulin regular-human 10 UNIT in SYRINGE 1 EACH IVP (20:01)
[2022-03-09] MEDS: insulin glargine 100 units/1 mL 20 UNIT SUBCUT (20:06)
[2022-03-09 23:19] LABS: Glucose Point of Care 130 mg/dL (70-110)
[2022-03-10] VITALS (7 sets, daily range): BP systolic 121–144; BP diastolic 70–86; PULSE 76–94; RESP 16–18; TEMP 36.9–37; O2SAT 95–97
[2022-03-10 02:17] LABS: Basophils # 0.1 10^3/uL (0.0-0.1); Basophils % 0.9 %; Eosinophils # 0.3 10^3/uL (0.0-0.8); Eosinophils % 2.9 %; Hematocrit 26.4 % (42.0-52.0); Hemoglobin 8.7 g/dL (11.7-16.6); Lymphocytes % 23.5 %; Mean Corpuscular Hemoglobin 30.1 pg (28.0-34.0); Mean Corpuscular Volume 91.3 fl (80-94); Mean Platelet Volume 10.8 fL (7.4-10.4); Monocytes # 0.7 10^3/uL (0.2-0.9); Neutrophils # 5.53 10^3/uL (1.8-7.7); Neutrophils % 64.4 %; Nucleated Red Blood Cells % 0 %; Platelet Count 428 10^3/cmm (130-400); Red Blood Count 2.89 10^6/uL (4.1-5.3); Red Cell Distribution Width 13.3 % (12.1-15.1); White Blood Count 8.6 10^3/uL (4.0-10.0)
[2022-03-10 02:37] LABS: PROTEIN, TOTAL 5.4 g/dL (6.1-8.1)
[2022-03-10 02:41] LABS: Alanine Aminotransferase 17 U/L (0-41); Albumin Level 2.4 g/dL (3.5-5.2); Alkaline Phosphatase 90 IU/L (40-130); Anion Gap 20.8 (5-19); Aspartate Amino Transferase 15 U/L (0-40); Calcium 7.5 mg/dL (8.5-10.5); Carbon Dioxide 20 mmol/L (22-29); Chloride 97 mmol/L (98-107); Globulin 2.9 g/dL (1.3-4.6); Glomerular Filtration Rate 8.1 mL/min (90-130); Glucose 161 mg/dL (65-115); Osmolality Calculated 304 mOsm/kg (285-295); Phosphorus 6.4 mg/dL (2.5-4.5); Potassium 4.8 mmol/L (3.5-5.1); Sodium 133 mmol/L (136-145); Total Bilirubin 0.2 mg/dL (0.15-1.2); Total Protein 5.3 g/dL (6.6-8.7)
[2022-03-10 02:45] LABS: Blood Urea Nitrogen 81 mg/dL (6-20)
[2022-03-10 07:00] LABS: Glucose Point of Care 45 mg/dL (70-110)
--- NOTE | 2022-03-10 07:07 | PC.NURSE ---
Patient's blood sugar low this AM. Juice and grahm crackers provided.
[2022-03-10 07:48] LABS: Glucose Point of Care 99 mg/dL (70-110)
--- NOTE | 2022-03-10 08:10 | PM.PN ---
Subjective Subjective: feels well. dec cuca. no n/v/f/c/agudelo/d Medications: Reviewed: Yes Medication Review Details: Current Medications Acetaminophen (Acetaminophen 325 Mg Tablet) 650 mg PO Q6H PRN PRN Reason: MILD PAIN Calcitriol (Calcitriol 0.25 Mcg Capsule) 0.25 mcg PO DAILY [facility] Last Admin: 03/09/22 08:38 Dose: 0.25 mcg Cholestyramine Resin (Cholestyramine Powder 4 Gm Pkt) 4 gm PO QID [facility] Last Admin: 03/09/22 20:08 Dose: Not Given Dextrose (Dextrose 50% Syringe 50 Ml) 25 ml IVP ONCE PRN; Protocol PRN Reason: hypoglycemia protocol Dextrose (Dextrose 50% Syringe 50 Ml) 50 ml IVP PRN PRN; Protocol PRN Reason: hypoglycemia protocol Dextrose (Dextrose 50% Syringe 50 Ml) 25 ml IVP ONCE PRN; Protocol PRN Reason: hypoglycemia protocol Dextrose (Dextrose 50% Syringe 50 Ml) 25 ml IVP ONCE PRN; Protocol PRN Reason: hypoglycemia protocol Dextrose (Dextrose 50% Syringe 50 Ml) 50 ml IVP PRN PRN; Protocol PRN Reason: hypoglycemia protocol Furosemide (Furosemide 10 Mg/Ml Sdv 4ml) 40 mg IVP Q12H [facility] Last Admin: 03/09/22 20:02 Dose: 40 mg Glucagon (Glucagon 1 Mg/Ml Inj 1 Ml) 1 mg IM ONCE PRN; Protocol PRN Reason: Adult Acute Hypoglycemia Prot. Glucagon (Glucagon 1 Mg/Ml Inj 1 Ml) 1 mg IM ONCE PRN; Protocol PRN Reason: Adult Acute Hypoglycemia Prot Heparin Sodium (Porcine) (Heparin 5,000 Unit/Ml Inj 1 Ml) 5,000 unit SUBCUT Q12H [facility] Last Admin: 03/09/22 21:34 Dose: 5,000 unit Hydralazine HCl (Hydralazine 10 Mg Tablet) 10 mg PO TID [facility] Last Admin: 03/09/22 20:08 Dose: 10 mg Dextrose (D5w) 500 mls @ 100 mls/hr IV ONCE PRN; Protocol PRN Reason: Adult Acute Hypoglycemia Prot Dextrose (D5w) 500 mls @ 100 mls/hr IV ONCE PRN; Protocol PRN Reason: Adult Acute Hypoglycemia Prot Nicardipine/Sodium Chloride (Cardene) 20 mg in 200 mls @ 0 mls/hr IV .Q0M [facility]; Protocol Ferric Sodium Gluconate 125 mg (/ Sodium Chloride) 110 mls @ 110 mls/hr IV Q24H [facility] Stop: 03/16/22 09:29 Last Infusion: 03/09/22 16:26 Dose: Infused Insulin Glargine (Insulin Glargine 100 Units/1 Ml) 20 unit SUBCUT BEDTIME [facility] Last Admin: 03/09/22 20:06 Dose: 20 unit Insulin Human Lispro (Insulin Lispro 100 Unit/1 Ml) 10 unit SUBCUT TIDWM [facility] Last Admin: 03/10/22 07:53 Dose: Not Given Insulin Human Lispro (Insulin Lispro 100 Unit/1 Ml) 0 unit SUBCUT TIDPC [facility]; Protocol Last Admin: 03/10/22 07:54 Dose: Not Given Metoprolol Tartrate (Metoprolol Tartrate 50 Mg Tablet) 50 mg PO BID@0900,2100 [facility] Last Admin: 03/09/22 21:35 Dose: 50 mg Multivitamins (R-Kryelqz-Ebdqgzv C Tablet) 1 each PO DAILY [facility] Last Admin: 03/09/22 08:38 Dose: 1 each Ondansetron HCl (Ondansetron 2 Mg/Ml Sdv 2 Ml) 4 mg IVP Q6H PRN PRN Reason: NAUSEA AND VOMITING Last Admin: 03/09/22 14:55 Dose: 4 mg Pantoprazole Sodium (Pantoprazole Dr 40 Mg Tablet) 40 mg PO DAILY [facility] Last Admin: 03/09/22 08:38 Dose: 40 mg Vitals/I&O/Wt Last Vital Signs Temp 98.4 F 03/10/22 07:38 Pulse 76 03/10/22 07:38 Resp 16 03/10/22 07:38 BP 144/81 03/10/22 07:38 Pulse Ox 96 03/10/22 07:38 O2 Del Method 03/10/22 07:38 O2 Flow Rate 2 03/08/22 20:00 FiO2 2 03/09/22 22:00 03/09/22 03/10/22 03/10/22 22:59 06:59 14:59 Intake Total 510 / 1196 0.1 / 0.1 Output Total 1200 / 2300 1475 / 3775 Balance -690 / -1104 -1475 / -2579 0.1 / 0.1 Weight last 48 hrs Weight 64.455 kg Physical Exam Narrative: in bed, more comfortable, nco2 vs noted and stable heent- nc/at, eomi, anicteric neck supple lungs mproved air movement b/l heart reg abd soft, nt, nd, + bs ext improved b/l edema. poor pulses, rt great toe amp, left foot missing distal part of 2 toes Urinary Catheter Management: Hernandez: Cath Placed During This Visit: yes Reason for Continuing Indwelling Catheter: Accurate Measurement of Urinary Output in Critically Ill Patients Urinary Catheter Date of Insertion: 03/06/22 Urinary Catheter Time of Insertion: 22:00 Data : 03/10/22 02:01 03/10/22 02:01 Micro: Microbiology 03/09/22 14:41 C.difficile Toxin B Gene (PCR) - Final Stool - Stool Aspirate A&P Assessment and plan (1) MELVIN (acute kidney injury): 41 yr old man hep c, htn, iddm x 28 yrs, CKD [id number] in 2020 w/ cr 2. pt here now w/ anasarca and MELVIN 1. MELVIN- D Dx includes progression of dm, htn nephrosclersosis -eval for other glomerulae disease -u/a w/ 3+ prot, 2+ blood, 5-10 rbc, 10-15 wbc -ur na 51 -check spep/ sife -ck 343 -most likely hep c, htn, and dm nephrosclerosis- pt is okay here. he does not need emergent dialysis. -will change lasix to 40 mg po daily and monitor -hopeful d/c soon - pt would benefit from a an AVF soon -if SIFE IS POSITIVE THEN CONSIDER RENAL BX. if not likely htn/ dm disease 2. inc AGMA from DKA and MELVIN- monitor on insulin and lasix -may need oral sodium bicarbonate 3. dm control w/ insulin 4. htn- BPcontrolled 5. anemia eval -iv iron, epo. await spep/ sife 6. hyponatremia- monitor on dec lasix 7. echo-CONCLUSIONS ?Normal left ventricular size and systolic function, EF 64 %. No ?regional wall motion abnormalities. Mild left ventricular ?hypertrophy. Grade III/IV diastolic dysfunction (restrictive ?filling pattern), severely elevated filling pressures. ?Moderate to severe? mitral valve regurgitation. Thickened mitral ?valve. ?Moderately increased left atrial size. ?Trace to mild aortic valve regurgitation. ?Mild tricuspid valve regurgitation. ?Estimated pulmonary artery peak systolic pressure 48 mmHg ?There is no pericardial effusion. ?There are no intracardiac masses. ?No similar previous studies are available for comparison seen and examined w / rN -telehealth visit time spent 30 min Status: Acute Plan see above Attestations Medical Necessity Statement*: f/u dr wood Time Spent in Patient Care: 16 - 35 minutes (>than 50% of time spent in counselling and/or direct pt care on unit). Coding Level of Care Code Acute Trim Setter for Chg Fwd Diagnoses MELVIN (acute kidney injury) N17.9
[2022-03-10] MEDS: metoprolol tartrate 50 mg Tablet PO (09:03)
[2022-03-10] MEDS: hyDRALAzine 10 mg Tablet PO (09:03)
[2022-03-10] MEDS: b-complex-vitamin c Tablet 1 EACH PO (09:03)
[2022-03-10] MEDS: calcitriol 0.25 mcg Capsule PO (09:03)
[2022-03-10] MEDS: pantoprazole DR 40 mg Tablet PO (09:03)
[2022-03-10 09:07] LABS: ALBUMIN 2.6 g/dL (3.8-4.8); ALPHA 1 GLOBULIN 0.4 g/dL (0.2-0.3); ALPHA 2 GLOBULIN 0.9 g/dL (0.5-0.9); BETA 1 GLOBULIN 0.4 g/dL (0.4-0.6); BETA 2 GLOBULIN 0.4 g/dL (0.2-0.5); GAMMA GLOBULIN 0.8 g/dL (0.8-1.7)
[2022-03-10] MEDS: heparin 5,000 unit/mL INJ 1 mL 5000 UNIT SUBCUT (09:14)
[2022-03-10] MEDS: cholestyramine powder 4 gm Pkt PO (09:14)
[2022-03-10] MEDS: FUROsemide 40 mg Tablet PO (09:14)
[2022-03-10 09:33] LABS: Glucose Point of Care 166 mg/dL (70-110)
--- NOTE | 2022-03-10 10:01 | PC.NURSE ---
Patients blood sugar was low this am (see chart), after juice and crackers it went up to WNL (see chart), insulin was held before breakfast. After breakfast patient was asking for insulin so this nurse checked his blood sugar which was then with in range to administer per sliding scale physician stated that it was fine to give, patient then refused insulin.
[2022-03-10] MEDS: ferric gluconate 125 MG in sodium chloride 0.9% (100 ml) 100 ML 110 MG IV (10:09)
[2022-03-10 10:58] LABS: Glucose Point of Care 143 mg/dL (70-110)
--- NOTE | 2022-03-10 11:47 | PM.DCS ---
Discharge Providers Date of Admission: 03/06/22 19:57 Date of Discharge: March 10, 2022 Attending Provider at Admission: Margarette Swenson MD Attending Provider at Discharge: Bao Ron MD Primary Care Provider: Amrit Carcamo MD Diagnoses at Discharge Discharge Diagnosis (1) MELVIN (acute kidney injury): Status: Acute Reason for Visit Reason for Visit: Swelling of the legs/body Hospital Course Hospital Course 41-year-old male who presented to the hospital with chief complaint of worsening shortness of breath. He was diagnosed with anasarca, suffered from hypertensive urgency required Cardene drip. He was diuresed aggressively. He was diagnosed with acute on chronic kidney disease, nephrology was consulted for further assistance. 24-hour urine collection did show protein excretion more than 4 g a day, he was diagnosed with DKA at the time of admission as well. DKA resolved with insulin regimen only. Patient responded very well to IV diuretics, there were no acute indication for dialysis However considering worsening of chronic kidney disease he will need dialysis soon, Dr. Yu recommended close follow-up with Dr. Hernandez and evaluation for AV fistula versus graft. I have spoken with Dr. Hernandez personally. We have sent a referral to his clinic. Dr. Hernandez will see him in the clinic tomorrow morning. At the time of discharge patient will get Lasix 40 mg daily. Please note most of the serological tests results are pending. In case he serological tests come back positive he will need kidney biopsy, Dr. Yu recommended against steroids, he is not thinking a nephrotic syndrome at this point. Shortness of breath improved by 8/2 with aggressive diuresis. No acidosis or hyperkalemia. His creatinine has plateaued at 7. His GFR is 8 he has progressed towards chronic kidney disease stage V, If he gets readmitted or comes to the ER currently transfer him to [place] or [place] for AV fistula placement Physical Exam Narrative: patient is saturating well on RA Clinical signs of fluid overload improving Abdomen soft Edema of legs improving Adequate urine output No swelling be below his eyes Awake and alert Nonfocal neuro exam Urinary Catheter Management: Hernandez: Cath Placed During This Visit: yes Reason for Continuing Indwelling Catheter: Accurate Measurement of Urinary Output in Critically Ill Patients Urinary Catheter Date of Insertion: 03/06/22 Urinary Catheter Time of Insertion: 22:00 Discharge Data Studies Completed and Pending Completed Studies During Hospitalization Category Date Time Status CT abdomen renal stone [CT kidney stone [id number]] Routine Cat Scan 03/06/22 21:26 Completed XR chest 1V portable [id number] Urgent Exams 03/06/22 15:37 Completed CV. echo complete* [id number] Routine Ultrasound 03/07/22 21:26 Completed US renal BI* [id number] Routine Ultrasound 03/09/22 08:11 Completed Pending at discharge Category Date Time Status SHAUNA Screen w/ Reflex Routine Lab 03/07/22 12:54 Received Anti Double Stranded DNA AB Routine Lab 03/07/22 12:54 Received Anti-Neutrophil Cytoplasmic AB Routine Lab 03/07/22 12:54 Received Complete Blood Count w/Auto AM LABS Lab 03/11/22 04:00 Ordered Complete Blood Count w/Auto AM LABS Lab 03/12/22 04:00 Ordered Comprehensive Metabolic Panel AM LABS Lab 03/11/22 04:00 Ordered Comprehensive Metabolic Panel AM LABS Lab 03/12/22 04:00 Ordered Hepatitis C RNA Viral Load Qnt Routine Lab 03/07/22 15:49 Received Magnesium AM LABS Lab 03/11/22 04:00 Ordered Magnesium AM LABS Lab 03/12/22 04:00 Ordered Phosphorus AM LABS Lab 03/11/22 04:00 Ordered Phosphorus AM LABS Lab 03/12/22 04:00 Ordered Urine Protein Electrop Random Routine Lab 03/07/22 08:32 Ordered Vitamin D 1,25 Dihydroxy Routine Lab 03/07/22 12:54 Received Radiology Impressions Chest X-Ray 03/06/22 15:37 IMPRESSION: 1. Pleural effusions. 2. No focal acute pulmonary disease. Abdomen/Pelvis CT 03/06/22 21:26 IMPRESSION: 1. Diffuse fluid overload changes. 2. No focal acute abdominopelvic pathology. Renal Ultrasound 03/09/22 08:11 IMPRESSION: 1. Echogenic kidneys bilaterally likely due to medical renal disease. No hydronephrosis. 2. No significant cortical atrophy. 3. Hernandez catheter. 4. No other suspicious findings. Laboratory Results WBC 8.6 10^3/uL (4.0-10.0) 03/10/22 02:01 RBC 2.89 10^6/uL (4.1-5.3) L 03/10/22 02:01 Hgb 8.7 g/dL (11.7-16.6) L 03/10/22 02:01 Hct 26.4 % (42.0-52.0) L 03/10/22 02:01 MCV 91.3 fl (80-94) D 03/10/22 02:01 MCH 30.1 pg (28.0-34.0) 03/10/22 02:01 MCHC 33.0 g/dL (30.0-36.0) D 03/10/22 02:01 RDW 13.3 % (12.1-15.1) 03/10/22 02:01 Plt Count 428 10^3/cmm (130-400) H 03/10/22 02:01 MPV 10.8 fL (7.4-10.4) H 03/10/22 02:01 Neut % (Auto) 64.4 % 03/10/22 02:01 Lymph % (Auto) 23.5 % 03/10/22 02:01 [place] % (Auto) 8.0 % 03/10/22 02:01 Eos % (Auto) 2.9 % 03/10/22 02:01 Baso % (Auto) 0.9 % 03/10/22 02:01 Neut # (Auto) 5.53 10^3/uL (1.8-7.7) 03/10/22 02:01 Lymph # (Auto) 2.0 10^3/uL (0.8-4.8) 03/10/22 02:01 [place] # (Auto) 0.7 10^3/uL (0.2-0.9) 03/10/22 02:01 Eos # (Auto) 0.3 10^3/uL (0.0-0.8) 03/10/22 02:01 Baso # (Auto) 0.1 10^3/uL (0.0-0.1) 03/10/22 02:01 Nucleated RBC % (auto) 0 % 03/10/22 02:01 Nucleated RBCs # 0.0 /100WBC 03/10/22 02:01 Specimen Type Arterial 03/06/22 19:55 Sample Site Radial, left 03/06/22 19:55 ABG pH 7.35 (7.35-7.45) 03/06/22 19:55 ABG pCO2 33.7 mmHg (35-45) L 03/06/22 19:55 ABG pO2 61.4 mmHg (80.0-100.0) L 03/06/22 19:55 ABG HCO3 18.4 mmol/L (22-26) L 03/06/22 19:55 ABG O2 Saturation 90.2 03/06/22 19:55 ABG Base Excess -6.6 mmol/L (-2.0-2.0) L 03/06/22 19:55 Santosh Test Pos 03/06/22 19:55 A-a O2 Gradient 6.0 mmHg (5-10) 03/06/22 19:55 Hematocrit 25.9 % (42-52) L 03/06/22 19:55 Hgb O2 Saturation 88.7 % (95-100) L 03/06/22 19:55 Carboxyhemoglobin 0.2 %THgb (0.4-20.1) L 03/06/22 19:55 Methemoglobin 1.4 % (0.4-1.5) 03/06/22 19:55 Total Hemoglobin 8.5 g/dL (14-18) L 03/06/22 19:55 Sodium 142.0 mmol/L (131-143) 03/06/22 19:55 Potassium 3.8 mmol/L (3.5-5.0) 03/06/22 19:55 Glucose 145.0 mg/dL (70-115) H 03/06/22 19:55 Ionized Calcium 1.1 mmol/L (1.1-1.4) 03/06/22 19:55 O2 Delivery Device None 03/06/22 19:55 Sound Ranging Crewmember ID Hensa 03/06/22 19:55 Sodium 133 mmol/L (136-145) L 03/10/22 02:01 Potassium 4.8 mmol/L (3.5-5.1) 03/10/22 02:01 Chloride 97 mmol/L (98-107) L 03/10/22 02:01 Carbon Dioxide 20 mmol/L (22-29) L 03/10/22 02:01 Anion Gap 20.8 (5-19) H 03/10/22 02:01 BUN 81 mg/dL (6-20) H 03/10/22 02:01 Creatinine 7.4 mg/dL (0.7-1.2) H* 03/10/22 02:01 GFR Calculation 8.1 mL/min (90-130) L 03/10/22 02:01 Glucose 161 mg/dL (65-115) H 03/10/22 02:01 POC Glucose 143 mg/dL (70-110) H 03/10/22 10:43 Estimat Average Glucose 154 03/06/22 18:09 Hemoglobin A1c 7.0 % (4.0-6.0) H 03/06/22 18:09 Calculated Osmolality 304 mOsm/kg (285-295) H 03/10/22 02:01 Uric Acid 7.2 mg/dL (3.4-7.0) H 03/07/22 00:15 Calcium 7.5 mg/dL (8.5-10.5) L 03/10/22 02:01 Phosphorus 6.4 mg/dL (2.5-4.5) H 03/10/22 02:01 Magnesium 2.0 mg/dL (1.7-2.3) 03/10/22 02:01 Iron 67 ug/dL (59-158) 03/08/22 03:30 TIBC 231 mcg/dl 03/08/22 03:30 % Saturation 29.0 % (20-50) 03/08/22 03:30 Unsat Iron Binding 164 ug/dL (112-347) 03/08/22 03:30 Ferritin 98 ng/mL (30-400) 03/08/22 03:30 Total Bilirubin 0.2 mg/dL (0.15-1.2) 03/10/22 02:01 AST 15 U/L (0-40) 03/10/22 02:01 ALT 17 U/L (0-41) 03/10/22 02:01 Alkaline Phosphatase 90 IU/L (40-130) 03/10/22 02:01 Creatine Kinase 206 U/L (39-308) 03/08/22 03:30 Troponin T Baseline 92 ng/L (0-15) H 03/06/22 18:09 Troponin T 120 Minute 86.56 ng/L (0-15) H 03/06/22 19:51 Delta Troponin T -5.44 ABS# (0-10) L 03/06/22 19:51 Troponin T Hi Sens 6Hr 84.46 ng/L (0-15) H 03/07/22 00:15 Troponin T Hi Sens 6Hr Delta -7.54 ng/L (0-12) L 03/07/22 00:15 NT-Pro-B Natriuret Pep 35091 pg/mL (0-125) H 03/06/22 18:09 Total Protein 5.3 g/dL (6.6-8.7) L 03/10/22 02:01 Albumin 2.4 g/dL (3.5-5.2) L 03/10/22 02:01 Globulin 2.9 g/dL (1.3-4.6) 03/10/22 02:01 Bcdkn-6-Jpojrattd 0.4 g/dL (0.2-0.3) H 03/07/22 12:54 Tzlbh-1-Qgmsdybpy 0.9 g/dL (0.5-0.9) 03/07/22 12:54 Dnvb-8-Czipkizk 0.4 g/dL (0.4-0.6) 03/07/22 12:54 Bmgf-5-Pslijybr 0.4 g/dL (0.2-0.5) 03/07/22 12:54 Gamma Globulins 0.8 g/dL (0.8-1.7) 03/07/22 12:54 Abnorm Protein Band 1 Not Reportable 03/07/22 12:54 Vitamin B12 571 pg/mL (232-1245) 03/07/22 00:15 25-OH Vitamin D Total 80 ng/mL (30-100) 03/08/22 03:30 Folate 11.9 ng/mL (4.5-32.2) 03/07/22 12:54 TSH 1.84 uIU/mL (0.27-4.20) 03/07/22 00:15 PTH Intact 314.9 pg/mL (15-65) H 03/08/22 03:30 Calcium (PTH Intact) 7.6 mg/dL (8.5-10.5) L 03/08/22 03:30 Urine Color Yellow (Yellow) 03/06/22 22:20 Urine Appearance Clear (CLEAR) 03/06/22 22:20 Urine pH 5 (5-7) 03/06/22 22:20 Ur Specific [place] 1.015 (1.005-1.030) 03/06/22 22:20 Urine Protein 3+ (Negative) H 03/06/22 22:20 Urine Glucose (UA) 2+ (Normal) H 03/06/22 22:20 Urine Ketones 1+ (Negative) H 03/06/22 22:20 Urine Blood 2+ (Negative) H 03/06/22 22:20 Urine Nitrate Negative (Negative) 03/06/22 22:20 Urine Bilirubin Neg (Negative) 03/06/22 22:20 Urine Urobilinogen Neg mg/dL (Negative) 03/06/22 22:20 Ur Leukocyte Esterase Negative (Negative) 03/06/22 22:20 Urine RBC 5-10 /hpf (0-2) H 03/06/22 22:20 Urine WBC 10-15 /hpf (0-5) H 03/06/22 22:20 Ur Squamous Epith Cells 0-4 /hpf (0-5) H 03/06/22 22:20 Amorphous Sediment Trace /hpf 03/06/22 22:20 Urine Bacteria Trace /hpf (NONE) 03/06/22 22:20 Urine Mucus Trace /hpf 03/06/22 22:20 Urine Sperm 1+ /hpf 03/06/22 22:20 U Random Total Protein 421 mg/dL 03/06/22 22:20 Ur Random Sodium 51 mmol/L 03/06/22 22:20 Ur Random Potassium 28 mmol/L 03/06/22 22:20 Ur Random Chloride 34 mmol/L 03/06/22 22:20 Urine Total Volume 2450 mL 03/08/22 14:15 Urine Creatinine 65 mg/dL (39-259) 03/06/22 22:20 Ur Total Protein 24 Hr 4201.8 mg/24hr (0-150) H 03/08/22 14:15 Urine Total Protein 171.5 mg/dL (0-150) H 03/08/22 14:15 U Abnormal Prot Band 2 Not Reportable 03/07/22 12:54 U Abnormal Prot Band 3 Not Reportable 03/07/22 12:54 Nasal Influ A H1 2008 PCR Not detected (NOT DETECT) 03/06/22 22:43 Serum Ketones Positive (Negative) H 03/06/22 18:09 Pro Electrophoresis Int See note 03/07/22 12:54 Serum Immunofixation See note 03/07/22 12:54 Adenovirus (PCR) Not detected (NOT DETECT) 03/06/22 22:43 C. pneumoniae DNA (PCR) Not detected (NOT DETECT) 03/06/22 22:43 Coronavirus 229E (PCR) Not detected (NOT DETECT) 03/06/22 22:43 Hep Bs Antigen Non-reactive (Nonreactive) 03/07/22 12:54 Hep Bs Antibody < 3.5 (11.5-1000) L 03/07/22 12:54 Hepatitis C Antibody Reactive (Nonreactive) H 03/07/22 12:54 Human Metapneumovir PCR Not detected (NOT DETECT) 03/06/22 22:43 Influenza A (H1) PCR Not detected (NOT DETECT) 03/06/22 22:43 Influenza A (H3) PCR Not detected (NOT DETECT) 03/06/22 22:43 Influenza Type A (PCR) Not detected (NOT DETECT) 03/06/22 22:43 Influenza Type B (PCR) Not detected (NOT DETECT) 03/06/22 22:43 M. pneumoniae (PCR) Not detected (NOT DETECT) 03/06/22 22:43 Parainfluenza 1 (PCR) Not detected (NOT DETECT) 03/06/22 22:43 Parainfluenza 2 (PCR) Not detected (NOT DETECT) 03/06/22 22:43 Parainfluenza 3 (PCR) Not detected (NOT DETECT) 03/06/22 22:43 Parainfluenza 4 (PCR) Not detected (NOT DETECT) 03/06/22 22:43 RSV Type A (PCR) Not detected (NOT DETECT) 03/06/22 22:43 RSV Type B (PCR) Not detected (NOT DETECT) 03/06/22 22:43 Entero/Rhino (PCR) Not detected (NOT DETECT) 03/06/22 22:43 SARS-CoV-2 (PCR) Not detected (NOT DETECT) 03/06/22 22:43 Anti-Streptolysin O Ab <50 IU/mL (<200) 03/07/22 12:54 Vitals Last Vital Signs Temp 98.6 F 03/10/22 11:40 Pulse 78 03/10/22 11:40 Resp 16 03/10/22 11:40 BP 128/70 03/10/22 11:40 Pulse Ox 97 03/10/22 11:40 O2 Del Method 03/10/22 11:40 O2 Flow Rate 2 03/08/22 20:00 FiO2 2 03/09/22 22:00 Discharge Plan Discharge Patient Disposition: Home Condition: Stable Prescriptions: New Renvela 800 mg tablet 800 mg PO TID Qty: 90 0RF Rx Instructions: must administer with a meal/food Iron (ferrous sulfate) 325 mg (65 mg iron) tablet 325 mg PO DAILY Qty: 30 0RF Lasix 40 mg tablet 40 mg PO DAILY Qty: 30 0RF albuterol sulfate 90 mcg/actuation HFA aerosol inhaler 2 inh inhalation Q8H PRN (Reason: shortness of breath or wheezing) Qty: 8.5 0RF Continued diphenhydramine HCl [Benadryl] 25 mg capsule 25 mg PO TID PRN (Reason: Allergic Reaction) Glucagon Emergency Kit (human) 1 mg recon soln 1 mg SUBCUT Q20M PRN (Reason: hypoglycemia) Qty: 1 6RF amlodipine 2.5 mg tablet 2.5 mg PO DAILY Qty: 90 3RF scopolamine base 1 mg over 3 days patch 3 day 1 patch TRANSDERMA Q3D PRN (Reason: nausea and vomiting) Qty: 10 2RF Label Comments: I take it sometimes FreeStyle Alicia 14 Day Sensor Kit See Rx Instructions .ROUTE .COMPLEX Qty: 1 11RF Dose Instruction: USE DIRECTED. Rx Instructions: USE DIRECTED. insulin lispro [Humalog KwikPen Insulin] 100 unit/mL insulin pen 20 unit SUBCUT TID 30 Days Qty: 15 11RF hydrocodone-acetaminophen 5-325 mg tablet 1 tab PO Q6H PRN (Reason: pain) 30 Days Qty: 120 0RF Levemir FlexTouch U-100 Insuln 100 unit/mL (3 mL) insulin pen 20 unit SUBCUT DAILY Qty: 15 9RF Discharge Orders: Discharge Order (Routine); Ordered 03/10/22 Ordered By: Bao Ron Referrals: Amrit Carcamo MD [Primary Care Provider] - 03/16/22 11:00 am ([phone] DR CARCAMO IN [facility]) Jesse Hernandez MD [Referring] - 03/11/22 2:30 pm (WILL SEE DR HERNANDEZ IN [facility]) Discharge Diet: Cardiac Discharge Activity: Increase activity as tolerated Patient Instructions: Furosemide (By mouth), Albuterol (By breathing), Sevelamer (By mouth), Heart Failure (GEN), Acute Kidney Injury (GEN), CHF Stoplight, Opioid Safety Discharge Attestations Time Spent in Discharge Care*: less than 30 min Quality Metrics Clinical Quality Measures [ No reported AMI, CVA or VTE this stay] Coding Level of Care Code Acute Chg FW DC note Diagnoses MELVIN (acute kidney injury) N17.9
[2022-03-10] MEDS: insulin lispro 100 unit/1 mL SUBCUT (12:58)
[2022-03-10 13:16] LABS: Anti-Double Strand DNA AB 3 IU/mL
--- NOTE | 2022-03-10 14:13 | PC.NURSE ---
Discharge education reviewed with patient and verbally acknowledges d/c plans.
[2022-03-10 15:16] LABS: Anti-Nuclear Antibody Screen NEGATIVE (NEGATIVE)
[2022-03-11 02:48] LABS: HEP C RNA Viral Load Quant 5.52 Log IU/mL (NOT DETECTED)
[2022-03-12 15:28] LABS: ANCA Screen NEGATIVE (NEGATIVE)
[2022-03-13 13:32] LABS: Vit D 1,25 (Oh)2, Total 8 pg/mL (18-72); Vit D2 1,25 (Oh)2 <8 pg/mL; Vit D3 1,25 (Oh)2 8 pg/mL
== END 2022-03-10 14:14 | disposition home or self-care (01) | DRG 637 ==
LOC: ER 20:04 → ICU 20:26 → MEDSURG 03-09 23:59
PROVIDERS: Emergency Medicine; Internal Medicine Nephrology; Admitting Provider Student in an Organized Health Care Education/Training Program; Emergency Provider Physician Assistant; PCP Family Medicine; Visit Provider Internal Medicine
DX: E10.10 Type 1 diabetes mellitus with ketoacidosis without coma (principal); I50.31 Acute diastolic (congestive) heart failure; I12.0 Hypertensive chronic kidney disease with stage 5 chronic kidney disease or end stage renal disease; J81.1 Chronic pulmonary edema; N18.5 Chronic kidney disease, stage 5; N17.9 Acute kidney failure, unspecified; E10.22 Type 1 diabetes mellitus with diabetic chronic kidney disease; E87.70 Fluid overload, unspecified; Z79.4 Long term (current) use of insulin; Z91.14 Patient's other noncompliance with medication regimen; E10.42 Type 1 diabetes mellitus with diabetic polyneuropathy; I16.0 Hypertensive urgency; D63.1 Anemia in chronic kidney disease; E10.51 Type 1 diabetes mellitus with diabetic peripheral angiopathy without gangrene; Z89.422 Acquired absence of other left toe(s); Z89.411 Acquired absence of right great toe; R09.02 Hypoxemia; B19.20 Unspecified viral hepatitis C without hepatic coma
CPT/HCPCS: 36415; 36416; 36600; 51702; 71045; 74176; 76770; 80048; 80051; 80053; 81001; 82009; 82306; 82310; 82330; 82436; 82550; 82570; 82607; 82652; 82728; 82746; 82805; 82962; 83036; 83540; 83550; 83735; 83880; 83970; 84100; 84133; 84155; 84156; 84165; 84300; 84443; 84484; 84550; 85025; 86036; 86038; 86060; 86225; 86334; 86706; 86803; 87340; 87486; 87493; 87522; 87581; 87633; 93005; 93306; 94760; 96361; 96372; 96374; 96375; 99285; J1644; J1815; J1940; J2405; J2916; J3490; J7050; Q3014; Q4081

== ENCOUNTER → 2022-03-16 11:49 | Outpatient (BNVA) | payer MEDICARE, MEDICAID, SELFPAY | PROVIDERS: PCP Family Medicine; Visit Provider Family Medicine | DX: N17.9 Acute kidney failure, unspecified (principal); N18.9 Chronic kidney disease, unspecified; Z09 Encounter for follow-up examination after completed treatment for conditions other than malignant neoplasm; E13.9 Other specified diabetes mellitus without complications | CPT/HCPCS: 80069; 80074; 85025; 87522 ==

== ENCOUNTER 2022-04-04 11:32 | Observation (INO) | payer MEDICARE, MEDICAID, SELFPAY ==
[2022-04-04 11:46] VITALS: BP 170/101; PULSE 92; RESP 17; O2SAT 100
[2022-04-04] MEDS: sodium chloride 0.9% 1,000 ML 999 ML IV (12:02)
[2022-04-04] MEDS: ondansetron 2 mg/ML SDV 2 mL 4 MG IVP (12:03)
--- NOTE | 2022-04-04 12:03 | ED_ITS ---
HPI - Nausea/Vomiting/Diarrhea General: Chief complaint: Nausea/Vomiting/Diarrhea Stated complaint: N/V Time Seen by Provider: 04/04/22 11:34 Source: patient Mode of arrival: EMS History of Present Illness: 41-year-old male presents emergency room with complaints of nausea and vomiting. Patient has end-stage renal disease and went in for his dialysis today was having nausea vomiting before he started had what looked like coffee-ground emesis tested Gastroccult positive he completed his full run of dialysis and presents here. He denies any hematemesis. No diarrhea no bloody stools. He denies having any chest pain generally is not feeling well and still very nauseous. MD elicited complaint: nausea and vomiting Onset (ago): minute(s) Description of vomiting: watery and blood-streaked Associated nausea: Yes Associated abdominal pain: No Exacerbating factors: none Relieving factors: none Associated symtoms: Reports anorexia, malaise and nausea; Denies altered mental status, anxiety, bloating, change in vision, chest pain, cough, diaphoresis, decreased urine output, dizziness, dysuria, epistaxis, fatigue, fecal incontinence, fevers/chills, headache(s), myalgias, numbness, palpitations, rash, short of breath, syncope, tenesmus, tinnitus or weakness Review of Systems Const: Reports: malaise; Denies: fever(s), chills, fatigue or diaphoresis Eyes: Denies: change in vision ENMT: Denies: throat pain, tinnitus or epistaxis Card: Denies: chest pain, palpitations or syncope Resp: Denies: dyspnea, productive cough or non-productive cough GI: Reports: nausea, vomiting and hematemesis (Streaking); Denies: abdominal pain, coffee ground emesis, bloating or fecal incontinence : Denies: flank pain, difficulty urinating or dysuria Skin/Breast: Denies: rash or pruritus Neuro: Denies: headache(s), numbness in extremities, weakness in extremities or dizziness Psych: Denies: anxiety PFSH ED PFSH: Medical History Anemia Depression Diabetes 1.5, managed as type 1 Diabetic peripheral neuropathy DKA, type 1 Surgical History History of cholecystectomy History of jejunostomy History of pyloroplasty Family History Other Chronic kidney disease (CKD) Social History Smoking and tobacco status: never smoked Alcohol intake: former Physical Exam Const: EXAM LIMITATIONS: no altered mental status Course Vital Signs: Vital signs: Vital Signs Temperature 97 F L 04/06/22 17:57 Pulse Rate 81 04/06/22 17:57 Respiratory Rate 17 04/06/22 17:57 Blood Pressure 156/81 04/06/22 17:57 Pulse Oximetry 96 04/06/22 17:57 Oxygen Delivery Me thod 04/06/22 16:00 MDM - Nausea/Vomiting/Diarrhea Medical Decision Making Hemoglobin is borderline. We will admit discussed with hospitalist consult surgery for possible EGD keep n.p.o. recheck hemoglobin start Protonix Medical Records I reviewed the patient's medical records. Lab Data I reviewed the patient's lab results. : 04/06/22 04:12 04/06/22 04:12 Radiology Impressions Abdomen/Pelvis CT 04/04/22 13:05 IMPRESSION: No acute abdominal or pelvic abnormality. Small bilateral pleural effusions. ADDENDUM: 04/04/22 1524 This is an addendum to prior report on CT abdomen and pelvis without contrast dated 04/04/2022 at 2:18 p.m.. Infiltrates/pneumonia at bilateral lung bases. Laboratory Results WBC 10.0 10^3/uL (4.0-10.0) 04/04/22 11:24 RBC 3.10 10^6/uL (4.1-5.3) L 04/04/22 11:24 Hgb 9.2 g/dL (11.7-16.6) L 04/04/22 11:24 Hct 28.2 % (42.0-52.0) L 04/04/22 11:24 MCV 91.0 fl (80-94) 04/04/22 11:24 MCH 29.7 pg (28.0-34.0) 04/04/22 11:24 MCHC 32.6 g/dL (30.0-36.0) 04/04/22 11:24 RDW 12.5 % (12.1-15.1) 04/04/22 11:24 Plt Count 466 10^3/cmm (130-400) H 04/04/22 11:24 MPV 11.3 fL (7.4-10.4) H 04/04/22 11:24 Neut % (Auto) 78.1 % 04/04/22 11:24 Lymph % (Auto) 13.3 % 04/04/22 11:24 [place] % (Auto) 7.2 % 04/04/22 11:24 Eos % (Auto) 0.5 % 04/04/22 11:24 Baso % (Auto) 0.6 % 04/04/22 11:24 Neut # (Auto) 7.83 10^3/uL (1.8-7.7) H 04/04/22 11:24 Lymph # (Auto) 1.3 10^3/uL (0.8-4.8) 04/04/22 11:24 Crisp # (Auto) 0.7 10^3/uL (0.2-0.9) 04/04/22 11:24 Eos # (Auto) 0.1 10^3/uL (0.0-0.8) 04/04/22 11:24 Baso # (Auto) 0.1 10^3/uL (0.0-0.1) 04/04/22 11:24 Nucleated RBC % (auto) 0 % 04/04/22 11:24 Nucleated RBCs # 0.0 /100WBC 04/04/22 11:24 Sodium 142 mmol/L (136-145) 04/04/22 11:24 Potassium 4.0 mmol/L (3.5-5.1) 04/04/22 11:24 Chloride 100 mmol/L (98-107) 04/04/22 11:24 Carbon Dioxide 28 mmol/L (22-29) 04/04/22 11:24 Anion Gap 18.0 (5-19) 04/04/22 11:24 BUN 27 mg/dL (6-20) H 04/04/22 11:24 Creatinine 2.4 mg/dL (0.7-1.2) H 04/04/22 11:24 GFR Calculation 29.7 mL/min (90-130) L 04/04/22 11:24 Glucose 105 mg/dL (65-115) 04/04/22 11:24 Calculated Osmolality 299 mOsm/kg (285-295) H 04/04/22 11:24 Calcium 9.1 mg/dL (8.5-10.5) 04/04/22 11:24 TSH 1.42 uIU/mL (0.27-4.20) 04/04/22 11:24 Gastric Occult Blood Positive (Negative) H 04/04/22 14:50 Discharge Plan Discharge Patient Disposition: Admitted As Inpatient Admit Provider: Meek Vazquez Clinical Impression: Acute on chronic anemia, MELVIN (acute kidney injury), CKD (chronic kidney dise ase), Essential hypertension, Acute upper GI bleed Condition: Stable Discharge Diet: Usual diet Discharge Activity: Resume usual activity Coding Level of Care Code ED Shuttle Final Inspector for Rafi Zavala
[2022-04-04 12:39] LABS: Blood Urea Nitrogen 27 mg/dL (6-20); Calcium 9.1 mg/dL (8.5-10.5); Carbon Dioxide 28 mmol/L (22-29); Chloride 100 mmol/L (98-107); Glomerular Filtration Rate 29.7 mL/min (90-130); Glucose 105 mg/dL (65-115); Osmolality Calculated 299 mOsm/kg (285-295); Sodium 142 mmol/L (136-145)
[2022-04-04 12:46] LABS: Basophils # 0.1 10^3/uL (0.0-0.1); Basophils % 0.6 %; Eosinophils # 0.1 10^3/uL (0.0-0.8); Eosinophils % 0.5 %; Hematocrit 28.2 % (42.0-52.0); Hemoglobin 9.2 g/dL (11.7-16.6); Lymphocytes # 1.3 10^3/uL (0.8-4.8); Lymphocytes % 13.3 %; Mean Corpuscular HGB Conc 32.6 g/dL (30.0-36.0); Mean Corpuscular Hemoglobin 29.7 pg (28.0-34.0); Mean Platelet Volume 11.3 fL (7.4-10.4); Monocytes # 0.7 10^3/uL (0.2-0.9); Monocytes % 7.2 %; Neutrophils # 7.83 10^3/uL (1.8-7.7); Neutrophils % 78.1 %; Nucleated Red Blood Cells % 0 %; Platelet Count 466 10^3/cmm (130-400); Red Cell Distribution Width 12.5 % (12.1-15.1)
--- NOTE | 2022-04-04 13:05 | CTR_ITS ---
PROCEDURE INFORMATION: Exam: CT Abdomen And Pelvis Without Contrast Exam date and time: 04/04/2022 2:18 PM Age: 41 years old Clinical indication: Nausea and vomiting; Prior surgery; Surgery date: 6+ months; Surgery type: Gb, feeding tube; Additional info: Abdominal paingastroccult positive TECHNIQUE: Imaging protocol: Computed tomography of the abdomen and pelvis without contrast. Radiation optimization: All CT scans at this facility use at least one of these dose optimization techniques: automated exposure control; mA and/or kV adjustment per patient size (includes targeted exams where dose is matched to clinical indication); or iterative reconstruction. COMPARISON: CT kidney stone [id number] 03/07/2022 12:47 AM RADIATION DOSE METRICS: Total DLP (mGy-cm): 384.07 FINDINGS: Lungs: Patchy consolidations at the bilateral lung bases representing infiltrates. Pleural spaces: Small bilateral pleural effusions. Heart: Cardiomegaly. Liver: Normal. No mass. Gallbladder and bile ducts: Cholecystectomy clips. Pancreas: Normal. No ductal dilation. Spleen: Normal. No splenomegaly. Adrenal glands: Normal. No mass. Kidneys and ureters: Normal. No hydronephrosis. Stomach and bowel: Unremarkable. No obstruction. No mucosal thickening. Appendix: No evidence of appendicitis. Intraperitoneal space: Unremarkable. No free air. No significant fluid collection. Vasculature: Atherosclerotic calcification of the superior mesenteric artery. Atherosclerotic calcification of the bilateral internal iliac arteries and its branches. Lymph nodes: Unremarkable. No enlarged lymph nodes. Urinary bladder: Unremarkable as visualized. Reproductive: Unremarkable as visualized. Bones/joints: Unremarkable. No acute fracture. Soft tissues: Calcifications in the lower right anterior abdominal wall. CT/CT abdomen pelvis wo con [id number] IMPRESSION: No acute abdominal or pelvic abnormality. Small bilateral pleural effusions.
[2022-04-04 16:00] LABS: Gastricult Occult Blood Positive (Negative)
[2022-04-04] MEDS: pantoprazole 40 mg SDV IVP ×2 (17:02→22:51)
--- NOTE | 2022-04-04 17:47 | P.HP_ITS ---
Providers/Chief Complaint Primary Care Provider: Amrit Antoine MD Chief Complaint: N/V History of Present Illness Fabián Ortiz Jr is a 41 year old male Medications/Allergies Home Medications Medication Instructions Recorded Confirmed Last Taken Type diphenhydramine HCl 25 mg capsule 25 mg PO TID PRN Allergic Reaction 08/28/19 04/04/22 Unknown History (Benadryl) amlodipine 2.5 mg tablet 2.5 mg PO DAILY #90 tabs 04/23/21 04/04/22 04/03/22 Rx scopolamine base 1 mg over 3 days 1 patch transdermal Q3D PRN nausea 05/21/21 04/04/22 Unknown Rx transdermal patch and vomiting #10 ea flash glucose sensor (FreeStyle See Rx Instructions .Route 06/20/21 04/04/22 Unknown Rx Alicia 14 Day Sensor) .COMPLEX #1 ea insulin lispro 100 unit/mL 20 unit (0.2 mL) SUBCUT TID 30 01/26/22 04/04/22 04/03/22 Rx subcutaneous pen (Humalog KwikPen days #15 mL (U-100) Insulin) albuterol sulfate 90 mcg/actuation 2 inh inhalation Q8H PRN shortness 03/10/22 04/04/22 Unknown Rx aerosol inhaler of breath or wheezing #8.5 grams insulin detemir U-100 100 unit/mL 20 unit (0.2 mL) SUBCUT DAILY #15 03/10/22 04/04/22 04/03/22 Rx (3 mL) subcutaneous pen (Levemir mL FlexTouch U-100 Insulin) furosemide 40 mg tablet (Lasix) 80 mg PO QAM 03/16/22 04/04/22 04/03/22 History potassium chloride 20 mEq 20 meq PO TID 03/16/22 04/04/22 Unknown History tablet,extended release hydrocodone 5 mg-acetaminophen 325 1 tab PO Q6H PRN Pain 04/04/22 04/04/22 Unknown History mg tablet omeprazole 20 mg capsule,delayed 20 mg PO BID 04/04/22 04/04/22 04/03/22 History release Allergies Allergy/AdvReac Type Severity Reaction Status Date / Time cefaclor [From Ceclor] Allergy rash Verified 03/16/22 10:14 metoclopramide [From Reglan] Allergy bites his Verified 03/16/22 10:14 tongue prochlorperazine Allergy no IV just Verified 03/16/22 10:14 [From Compazine] oral PFSH Acute PFSH: Medical History Anemia Depression Diabetes 1.5, managed as type 1 Diabetic peripheral neuropathy DKA, type 1 Surgical History History of cholecystectomy Family History Other Chronic kidney disease (CKD) Social History Smoking and tobacco status: never smoked Alcohol intake: former Vitals/I&O/Wt Last Vital Signs Pulse 92 04/04/22 11:46 Resp 17 04/04/22 11:46 BP 170/101 04/04/22 11:46 Pulse Ox 100 04/04/22 11:46 O2 Del Method 04/04/22 11:46 Data : 04/04/22 11:24 04/04/22 11:24 Coding Level of Care Code Acute Vocational Training Director for Rafi Zavala
--- NOTE | 2022-04-04 19:59 | P.HP_ITS ---
Providers/Chief Complaint Primary Care Provider: Amrit Antoine MD Chief Complaint: N/V History of Present Illness Fabián Ortiz Jr is a 41 year old male with a past medical history of type I diabetes mellitus, depression, recently placed on dialysis for end-stage renal disease, who presents [facility] due to intractable nausea and vomiting. Patient tells me that last night he had a really elevated blood sugar, he tells me that lately his blood sugars have been fluctuating, so he took a higher dose of his sliding scale, this morning he woke up with a low blood sugar. He went to dialysis, on his way to dialysis he felt nauseous, had episode of nausea and vomiting. He felt nauseous during his dialysis, but after he started belting more episodes of nausea and vomiting, some appearing black tarry. He tells me that he has a history of gastric ulcers, he has had multiple EGDs, he has never had any surgery. Denies any NSAID use. Denies being on any blood thinners. Denies any lightheadedness, denies any dizziness. Denies a history of esophageal varices, denies drinking alcohol Review of Systems Card: Denies: chest pain Resp: Denies: dyspnea GI: Reports: nausea, vomiting and coffee ground emesis; Denies: abdominal pain : Denies: flank pain or difficulty urinating Neuro: Denies: headache(s) Medications/Allergies Home Medications Medication Instructions Recorded Confirmed Last Taken Type diphenhydramine HCl 25 mg capsule 25 mg PO TID PRN Allergic Reaction 08/28/19 04/04/22 Unknown History (Benadryl) amlodipine 2.5 mg tablet 2.5 mg PO DAILY #90 tabs 04/23/21 04/04/22 04/03/22 Rx scopolamine base 1 mg over 3 days 1 patch transdermal Q3D PRN nausea 05/21/21 04/04/22 Unknown Rx transdermal patch and vomiting #10 ea flash glucose sensor (FreeStyle See Rx Instructions .Route 06/20/21 04/04/22 Unknown Rx Alicia 14 Day Sensor) .COMPLEX #1 ea insulin lispro 100 unit/mL 20 unit (0.2 mL) SUBCUT TID 30 01/26/22 04/04/22 04/03/22 Rx subcutaneous pen (Humalog KwikPen days #15 mL (U-100) Insulin) albuterol sulfate 90 mcg/actuation 2 inh inhalation Q8H PRN shortness 03/10/22 04/04/22 Unknown Rx aerosol inhaler of breath or wheezing #8.5 grams insulin detemir U-100 100 unit/mL 20 unit (0.2 mL) SUBCUT DAILY #15 03/10/22 04/04/22 04/03/22 Rx (3 mL) subcutaneous pen (Levemir mL FlexTouch U-100 Insulin) furosemide 40 mg tablet (Lasix) 80 mg PO QAM 03/16/22 04/04/22 04/03/22 History potassium chloride 20 mEq 20 meq PO TID 03/16/22 04/04/22 Unknown History tablet,extended release hydrocodone 5 mg-acetaminophen 325 1 tab PO Q6H PRN Pain 04/04/22 04/04/22 Unknown History mg tablet omeprazole 20 mg capsule,delayed 20 mg PO BID 04/04/22 04/04/22 04/03/22 History release Allergies Allergy/AdvReac Type Severity Reaction Status Date / Time cefaclor [From Ceclor] Allergy rash Verified 03/16/22 10:14 metoclopramide [From Reglan] Allergy bites his Verified 03/16/22 10:14 tongue prochlorperazine Allergy no IV just Verified 03/16/22 10:14 [From Compazine] oral PFSH Acute PFSH: Medical History Anemia Depression Diabetes 1.5, managed as type 1 Diabetic peripheral neuropathy DKA, type 1 Surgical History History of cholecystectomy Family History Other Chronic kidney disease (CKD) Social History Smoking and tobacco status: never smoked Alcohol intake: former Vitals/I&O/Wt Last Vital Signs Pulse 92 04/04/22 11:46 Resp 17 04/04/22 11:46 BP 170/101 04/04/22 11:46 Pulse Ox 100 04/04/22 11:46 O2 Del Method 04/04/22 11:46 Physical Exam Const: COMMON NORMALS: no acute distress and patient oriented x3 HENMT: COMMON NORMALS: normocephalic HEAD & SCALP: normocephalic Eye: COMMON NORMALS: Equal, round and reactive pupils present and EOMs intact bilaterally Resp: COMMON NORMALS: normal respiratory effort, No retractions, No use of accessory muscles and clear to auscultation bilaterally AUSCULTATION: clear to auscultation bilaterally Cardio: COMMON NORMALS: no JVD, regular rate, regular rhythm, S1 normal heart sound present and S2 normal heart sound present RATE: regular rate RHYTHM: regular rhythm HEART SOUNDS: S1 normal heart sound present and S2 normal heart sound present GI: COMMON NORMALS: Normal to inspection, nondistended, normoactive bowel sounds present, Soft to palpation, non-tender, No hepatosplenomegaly present, no masses and no bruits PALPATION: Yes Soft to palpation and Yes No hepatosplenomegaly present Extremity: COMMON NORMALS: no calf tenderness and no pedal edema Neuro: COMMON NORMALS: patient oriented x3 Psych: COMMON NORMALS: mental status grossly normal Data : 04/04/22 11:24 04/04/22 11:24 A&P Assessment and plan (1) Diabetes 1.5, managed as type 1: Status: Acute (2) Acute kidney injury superimposed on chronic kidney disease: Status: Acute (3) Essential hypertension: Status: Acute (4) Hematemesis: Status: Acute (5) Intractable nausea and vomiting: Status: Acute (6) Acute on chronic anemia: Status: Acute Plan Intractable nausea vomiting, hematemesis, acute on chronic anemia -With history of gastric ulcers -Hemodynamically stable, no recurrent episodes Plan -Admit to general medical floors -Monitor symptoms closely -Monitor hemoglobin -Protonix, Carafate -Zofran for nausea -General surgery has been consulted for consideration of EGD -IV fluids -Full code -SCDs for DVT prophylaxis Type 2 diabetes mellitus, low-dose sliding scale, with Levemir 10 units every morning Attestations Medical Necessity Statement*: Patient requires hospitalization, inpatient, greater than 2 midnights, for hematemesis Coding Level of Care Code Acute Radiology Therapist for [facility] Diagnoses Diabetes 1.5, managed as type 1 E13.9 Acute kidney injury superimposed on chronic kidney disease N17.9; N18.9 Essential hypertension I10 Hematemesis K92.0 Intractable nausea and vomiting R11.2 Acute on chronic anemia D64.9
[2022-04-04 20:26] LABS: Hematocrit 28.1 % (42.0-52.0); Hemoglobin 8.8 g/dL (11.7-16.6)
[2022-04-04 22:11] VITALS: BP 190/104; PULSE 99; RESP 19; TEMP 36.8; O2SAT 99
[2022-04-04 22:27] LABS: Glucose Point of Care 530 mg/dL (70-110)
[2022-04-04] MEDS: insulin lispro 100 unit/1 mL 20 UNIT SUBCUT (22:50)
[2022-04-04] MEDS: sucralfate 1 gm Tablet PO (22:51)
[2022-04-04] MEDS: labetalol 5 mg/mL SDV 20mL 10 MG IVP (22:53)
[2022-04-04 22:55] LABS: Thyroid Stimulating Hormone 1.42 uIU/mL (0.27-4.20)
[2022-04-04 23:39] VITALS: PULSE 94; O2SAT 99
[2022-04-04 23:40] VITALS: O2SAT 99
[2022-04-04 23:42] LABS: Glucose Point of Care 538 mg/dL (70-110)
[2022-04-04] MEDS: sodium chloride 0.9% 1,000 ML 75 ML IV (23:57)
[2022-04-05] VITALS (10 sets, daily range): BP systolic 131–167; BP diastolic 76–93; PULSE 79–89; RESP 16–19; TEMP 36.7–37.3; O2SAT 95–98
[2022-04-05] MEDS: insulin lispro 100 unit/1 mL 10 UNIT SUBCUT (00:01)
[2022-04-05 00:50] LABS: Glucose Point of Care 459 mg/dL (70-110)
--- NOTE | 2022-04-05 00:51 | PC.NURSE ---
Patient's glucose on arrival to [facility] was 530 at 2220 on 04/04/22. Dr. Vazquez contacted, new orders received for Lispro. Glucose rechecked at 2340 and result was 538. Dr. Vazquez contacted, new orders received for Lispro and Levemir. Glucose rechecked at [address] Vazquez contacted, no new orders. Patient requests to have glucose rechecked at 0230.
[2022-04-05 02:59] LABS: Glucose Point of Care 303 mg/dL (70-110)
[2022-04-05 05:00] LABS: Basophils # 0.1 10^3/uL (0.0-0.1); Basophils % 1.3 %; Eosinophils # 0.1 10^3/uL (0.0-0.8); Eosinophils % 1.5 %; Hematocrit 25.2 % (42.0-52.0); Lymphocytes # 1.9 10^3/uL (0.8-4.8); Lymphocytes % 22.4 %; Mean Corpuscular HGB Conc 31.7 g/dL (30.0-36.0); Mean Corpuscular Hemoglobin 29.4 pg (28.0-34.0); Mean Corpuscular Volume 92.6 fl (80-94); Mean Platelet Volume 10.5 fL (7.4-10.4); Monocytes # 0.9 10^3/uL (0.2-0.9); Monocytes % 10.8 %; Neutrophils # 5.34 10^3/uL (1.8-7.7); Neutrophils % 63.6 %; Nucleated Red Blood Cells % 0 %; Platelet Count 369 10^3/cmm (130-400); Red Blood Count 2.72 10^6/uL (4.1-5.3); Red Cell Distribution Width 12.8 % (12.1-15.1); White Blood Count 8.4 10^3/uL (4.0-10.0)
[2022-04-05 05:06] LABS: INR 1.04 (0.8-1.2)
[2022-04-05 05:16] LABS: Lactic Sepsis W/Reflex 1.1 mmol/L (0.5-2.2)
[2022-04-05 05:20] LABS: Alanine Aminotransferase 40 U/L (0-41); Albumin Level 2.8 g/dL (3.5-5.2); Alkaline Phosphatase 104 U/L (40-130); Anion Gap 14.2 (5-19); Aspartate Amino Transferase 26 U/L (0-40); Blood Urea Nitrogen 38 mg/dL (6-20); Calcium 7.8 mg/dL (8.5-10.5); Carbon Dioxide 27 mmol/L (22-29); Chloride 100 mmol/L (98-107); Globulin 2.2 g/dL (1.3-4.6); Glucose 213 mg/dL (65-115); Magnesium 1.8 mg/dL (1.7-2.3); Osmolality Calculated 299 mOsm/kg (285-295); Phosphorus 4.5 mg/dL (2.5-4.5); Potassium 4.2 mmol/L (3.5-5.1); Sodium 137 mmol/L (136-145); Total Bilirubin 0.3 mg/dL (0.15-1.2)
[2022-04-05 06:15] LABS: Glucose Point of Care 173 mg/dL (70-110)
[2022-04-05] MEDS: amlodipine 5 mg Tablet 2.5 MG PO (09:44)
[2022-04-05] MEDS: potassium chloride ER 20 mEq Tablet PO ×2 (09:44→17:35)
[2022-04-05] MEDS: pantoprazole 40 mg SDV IVP ×2 (09:59→21:40)
[2022-04-05] MEDS: sodium chloride 0.9% 1,000 ML 75 ML IV ×2 (09:59→23:47)
[2022-04-05] MEDS: sucralfate 1 gm Tablet PO ×2 (09:59→21:40)
--- NOTE | 2022-04-05 10:01 | PM.CONSULT ---
Providers/Reason For Consult Consulting Physician/Specialty*: Dr. Julio César Burch, DO/General surgery Reason for Consult*: Hematemesis Attending Physician: Margarette Swenson MD Primary Care Provider: Amrit Antoine MD History of Present Illness History of Present Illness Fabián Ortiz Jr is a 41 year old male, with a history of GERD, pyloroplasty and hemodialysis dependence, who presented to the hospital with a 2-day history of nausea and vomiting. He had 1 episode of hematemesis, which prompted him to go to the hospital. He reports that he always gets nausea and vomiting. He had a pyloroplasty and jejunostomy in the past for gastroparesis. His hemoglobin was 9.2 on arrival and is now 8. He denies any hematochezia or melena. He just had that 1 episode of hematemesis. He denies any abdominal pain. He does report that he has a longstanding history of GERD and will only sometimes taking omeprazole. He does have a history of bleeding ulcers in the past which resulted in ICU care. Review of Systems General: Reports: 10 or more systems reviewed and unremarkable except in HPI and below Medications/Allergies Home Medications Medication Instructions Recorded Confirmed Last Taken Type diphenhydramine HCl 25 mg capsule 25 mg PO TID PRN Allergic Reaction 08/28/19 04/04/22 Unknown History (Benadryl) amlodipine 2.5 mg tablet 2.5 mg PO DAILY #90 tabs 04/23/21 04/04/22 04/03/22 Rx scopolamine base 1 mg over 3 days 1 patch transdermal Q3D PRN nausea 05/21/21 04/04/22 Unknown Rx transdermal patch and vomiting #10 ea flash glucose sensor (FreeStyle See Rx Instructions .Route 06/20/21 04/04/22 Unknown Rx Alicia 14 Day Sensor) .COMPLEX #1 ea insulin lispro 100 unit/mL 20 unit (0.2 mL) SUBCUT TID 30 01/26/22 04/04/22 04/03/22 Rx subcutaneous pen (Humalog Kwik days #15 mL (U-100) Insulin) albuterol sulfate 90 mcg/actuation 2 inh inhalation Q8H PRN shortness 03/10/22 04/04/22 Unknown Rx aerosol inhaler of breath or wheezing #8.5 grams insulin detemir U-100 100 unit/mL 20 unit (0.2 mL) SUBCUT DAILY #15 03/10/22 04/04/22 04/03/22 Rx (3 mL) subcutaneous pen (Levemir mL FlexTouch U-100 Insulin) furosemide 40 mg tablet (Lasix) 80 mg PO QAM 03/16/22 04/04/22 04/03/22 History potassium chloride 20 mEq 20 meq PO TID 03/16/22 04/04/22 Unknown History tablet,extended release hydrocodone 5 mg-acetaminophen 325 1 tab PO Q6H PRN Pain 04/04/22 04/04/22 Unknown History mg tablet omeprazole 20 mg capsule,delayed 20 mg PO BID 04/04/22 04/04/22 04/03/22 History release Allergies Allergy/AdvReac Type Severity Reaction Status Date / Time cefaclor [From Ceclor] Allergy rash Verified 03/16/22 10:14 metoclopramide [From Reglan] Allergy bites his Verified 03/16/22 10:14 tongue prochlorperazine Allergy no IV just Verified 03/16/22 10:14 [From Compazine] oral Current Medications Generic Name Dose Route Start Last Admin Trade Name Freq PRN Reason Stop Dose Admin Amlodipine Besylate 2.5 mg 04/05/22 09:00 04/05/22 09:44 Amlodipine 5 Mg Tablet PO 2.5 mg DAILY STONE Administration Furosemide 80 mg 04/05/22 06:00 04/05/22 06:19 Furosemide 40 Mg Tablet PO Not Given QAM STONE Sodium Chloride 1,000 mls @ 75 mls/hr 04/04/22 22:11 04/05/22 09:59 Sodium Chloride 0.9% IV 75 mls/hr .[id number] STONE Administration Insulin Detemir 10 unit 04/04/22 23:47 04/05/22 00:01 Insulin Detemir 100 Units/1 Ml SUBCUT 10 unit Q24H STONE Administration Insulin Human Lispro 0 unit 04/04/22 22:11 04/05/22 07:51 Insulin Lispro 100 Unit/1 Ml SUBCUT Not Given TIDWM STONE Protocol Labetalol HCl 10 mg 04/04/22 22:27 04/04/22 22:53 Labetalol 5 Mg/Ml Sdv 20ml IVP 10 mg Q4H PRN Administration DIASTOLIC BLOOD PRESSURE Pantoprazole Sodium 40 mg 04/04/22 22:11 04/05/22 09:59 Pantoprazole 40 Mg Sdv IVP 40 mg Q12H STONE Administration Potassium Chloride 20 meq 04/05/22 09:00 04/05/22 09:44 Potassium Chloride Er 20 Meq Tablet PO 20 meq BID STONE Administration Sucralfate 1 gm 04/04/22 22:11 04/05/22 09:59 Sucralfate 1 Gm Tablet PO 1 gm Q12H STONE Administration PFSH Acute PFSH: Medical History Anemia Depression Diabetes 1.5, managed as type 1 Diabetic peripheral neuropathy DKA, type 1 Surgical History History of cholecystectomy History of jejunostomy History of pyloroplasty Family History Other Chronic kidney disease (CKD) Social History Smoking and tobacco status: never smoked Alcohol intake: former Vitals/I&O/Wt Last Vital Signs Temp 98.5 F 04/05/22 08:00 Pulse 84 04/05/22 08:00 Resp 16 04/05/22 08:00 BP 144/84 04/05/22 08:00 Pulse Ox 95 04/05/22 08:00 O2 Del Method 04/05/22 08:00 04/04/22 04/05/22 04/05/22 22:59 06:59 14:59 Intake Total 380 / 380 752.5 / 752.5 Balance 380 / 380 752.5 / 752.5 Weight last 48 hrs Weight 148 lb 4.8 oz Physical Exam Narrative: General : Patient is well developed , no acute distress, oriented x3 Head : Normal cephalic, a-traumatic. Ears : Pinnae and external canal are normal. Hearing is normal. Eyes : PERRLA, Sclera and injection are normal. No conjunctival discharge. Nose : Mucous membranes are without erythema. Throat : buccal mucosa is normal, gums are without significant recession or hypertrophy. Lungs : Equal chest rise bilaterally, no use of accessory muscles, trachea is midline. Cor : Rate and rhythm are normal. Abdomen : Soft, ND, NT, no g/r/m Extremities : No edema, no cyanosis or clubbing, dorsalis pedis pulses are present bilaterally, non-tender to palpation of calves. Upper extremities are normal bilaterally. Back : non-tender to palpation, no CVA tenderness. Neuro : CN II - XII intact, Upper and lower extremities have equal and full strength Data : 04/05/22 04:41 04/05/22 04:41 A&P Assessment and plan (1) Intractable nausea and vomiting: Status: Acute (2) Hematemesis: Status: Acute (3) Acute on chronic anemia: Status: Acute Plan Protonix twice daily Sucralfate Clear liquid diet, n.p.o. after midnight EGD tomorrow The risks and benefits of the procedure, including bleeding, infection, intestinal perforation requiring surgery, missed lesion, or explained to the patient. He is understanding of the risks and wishes to proceed. Coding Level of Care Code Acute Director Of Acquisition [facility] Diagnoses Intractable nausea and vomiting R11.2 Hematemesis K92.0 Acute on chronic anemia D64.9
--- NOTE | 2022-04-05 14:52 | P.PN_ITS ---
Subjective Subjective: Overnight labs and H&P reviewed. Hemoglobin is stable at 8.0 this morning. Patient has had no episodes of melena. Evaluated by general surgery. Plan for upper GI endoscopy tomorrow. His dialysis schedule is Wednesday. No further episodes of vomiting. Medications: Reviewed: Yes Vitals/I&O/Wt Last Vital Signs Temp 98.1 F 04/05/22 12:00 Pulse 82 04/05/22 12:00 Resp 16 04/05/22 12:00 BP 141/93 04/05/22 12:00 Pulse Ox 97 04/05/22 12:00 O2 Del Method 04/05/22 12:00 04/04/22 04/05/22 04/05/22 22:59 06:59 14:59 Intake Total 380 / 380 752.5 / 752.5 Balance 380 / 380 752.5 / 752.5 Weight last 48 hrs Weight 67.268 kg Physical Exam Narrative: General: No acute distress, AO x3 HEENT: PERRLA, pupils bilaterally equal and reactive, pallors not present Chest: Normal vesicular breath sounds, no added sounds, equal good air entry bilaterally CVS: S1-S2 regular, no murmurs, no tachycardia, no gallops, no rubs Abdomen: Soft, nontender, no organomegaly, bowel sounds present Neuro: No focal deficits, no facial deformity, AO x3, power 5/5 in all limbs Extremities: Temporary dialysis catheter seen over right upper chest. Data : 04/05/22 04:41 04/05/22 04:41 A&P Assessment and plan (1) Diabetes 1.5, managed as type 1: Status: Acute (2) Acute kidney injury superimposed on chronic kidney disease: Status: Acute (3) Essential hypertension: Status: Acute (4) Hematemesis: Status: Acute (5) Intractable nausea and vomiting: Status: Acute (6) Acute on chronic anemia: Status: Acute Plan Patient admitted for intractable nausea vomiting, hematemesis, acute on chronic anemia -With history of gastric ulcers -Hemodynamically stable, no recurrent episodes -Plan for EGD with Dr. Burch tomorrow -Monitor hemoglobin, currently stable at 8.0 -Protonix 40 mg IV every 12, Carafate 1 g p.o. twice daily -Zofran for nausea -DC IV fluids -Full code -SCDs for DVT prophylaxis -CKD on hemodialysis Wednesday, will consult nephrology tomorrow to resume schedule. No current indication for urgent dialysis. -Type 2 diabetes mellitus, low-dose sliding scale, with Levemir 10 units every morning Attestations Medical Necessity Statement*: Need for upper GI endoscopy tomorrow. Coding Level of Care Code Acute Mining Support Worker for [facility] Diagnoses Diabetes 1.5, managed as type 1 E13.9 Acute kidney injury superimposed on chronic kidney disease N17.9; N18.9 Essential hypertension I10 Hematemesis K92.0 Intractable nausea and vomiting R11.2 Acute on chronic anemia D64.9
[2022-04-05] MEDS: insulin lispro 100 unit/1 mL SUBCUT (17:34)
[2022-04-06] VITALS (9 sets, daily range): BP systolic 117–192; BP diastolic 72–108; PULSE 67–89; RESP 16–20; TEMP 36.1–36.8; O2SAT 92–98
[2022-04-06 04:57] LABS: Alanine Aminotransferase 41 U/L (0-41); Albumin Level 2.9 g/dL (3.5-5.2); Alkaline Phosphatase 102 U/L (40-130); Anion Gap 16.8 (5-19); Aspartate Amino Transferase 33 U/L (0-40); Blood Urea Nitrogen 41 mg/dL (6-20); Calcium 7.6 mg/dL (8.5-10.5); Carbon Dioxide 23 mmol/L (22-29); Chloride 98 mmol/L (98-107); Globulin 2.6 g/dL (1.3-4.6); Glomerular Filtration Rate 13.3 mL/min (90-130); Glucose 128 mg/dL (65-115); Magnesium 1.9 mg/dL (1.7-2.3); Osmolality Calculated 288 mOsm/kg (285-295); Phosphorus 4.1 mg/dL (2.5-4.5); Potassium 4.8 mmol/L (3.5-5.1); Sodium 133 mmol/L (136-145); Total Bilirubin 0.4 mg/dL (0.15-1.2); Total Protein 5.5 g/dL (6.6-8.7)
[2022-04-06] MEDS: FUROsemide 40 mg Tablet 80 MG PO (05:36)
[2022-04-06] MEDS: dextrose 5%-sod chloride 0.9% 1,000 ML 75 ML IV (06:25)
[2022-04-06 06:42] LABS: Glucose Point of Care 82 mg/dL (70-110)
[2022-04-06] MEDS: sodium chloride 0.9% 1,000 ML 30 ML IV (09:34)
[2022-04-06] MEDS: dextrose 50% syringe 50 mL 25 ML IVP (09:51)
--- NOTE | 2022-04-06 09:53 | PC.NURSE ---
Preop blood glucose 86. Patient stated low for him. Called anesthesia, obtained order for 1/2 amp D50. Patient agreeable to this plan of care.
--- NOTE | 2022-04-06 10:14 | ANES.PREANE2 ---
Pre-Anesthetic Assessment Height/Weight: Height 1.75 m Weight 67.268 kg Temp Pulse Resp BP Pulse Ox O2 Del Method 98.1 F 89 17 163/88 97 04/06/22 04:00 04/06/22 08:00 04/06/22 04:00 04/06/22 04:00 04/06/22 08:00 04/06/22 08:00 Operation Date: 04/06/22 10:30 Proposed Procedures p EGD(Not Applicable) - Julio César Burch DO Familial anesthetic complications: none Was Beta Tari taken within 24 hours: N/A Was Clonidine taken within 24 hours: N/A Last intake: Intake Last Liquid Date 04/05/22 Last Liquid Time 23:30 Last Solid Date 04/04/22 Social No alcohol and No tobacco Exam alert, oriented x 3, clear to auscultation bilaterally and regular rate & rhythm Airway Mallampati: Class II Dentition: chipped and other (missing) CV/HEM Anemia, Congestive Heart Failure (grade III diastolic dysfunction (restricted filling pressures), 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) and Hypertension Chronic Renal Failure (dialysis T, R, S) Metabolic Diabetes Mellitus Anesthetic Plan ASA status: 4 Anesthesia: MAC Risk of > 500 ml blood loss (7ml/kg in children): No Medications/Allergies Home Medications Medication Instructions Recorded Confirmed Last Taken Type diphenhydramine HCl 25 mg capsule 25 mg PO TID PRN Allergic Reaction 08/28/19 04/04/22 Unknown History (Benadryl) amlodipine 2.5 mg tablet 2.5 mg PO DAILY #90 tabs 04/23/21 04/04/22 04/03/22 Rx scopolamine base 1 mg over 3 days 1 patch transdermal Q3D PRN nausea 05/21/21 04/04/22 Unknown Rx transdermal patch and vomiting #10 ea flash glucose sensor (FreeStyle See Rx Instructions .Route 06/20/21 04/04/22 Unknown Rx Alicia 14 Day Sensor) .COMPLEX #1 ea insulin lispro 100 unit/mL 20 unit (0.2 mL) SUBCUT TID 30 01/26/22 04/04/22 04/03/22 Rx subcutaneous pen (Humalog KwikPen days #15 mL (U-100) Insulin) albuterol sulfate 90 mcg/actuation 2 inh inhalation Q8H PRN shortness 03/10/22 04/04/22 Unknown Rx aerosol inhaler of breath or wheezing #8.5 grams insulin detemir U-100 100 unit/mL 20 unit (0.2 mL) SUBCUT DAILY #15 03/10/22 04/04/22 04/03/22 Rx (3 mL) subcutaneous pen (Levemir mL FlexTouch U-100 Insulin) furosemide 40 mg tablet (Lasix) 80 mg PO QAM 03/16/22 04/04/22 04/03/22 History potassium chloride 20 mEq 20 meq PO TID 03/16/22 04/04/22 Unknown History tablet,extended release hydrocodone 5 mg-acetaminophen 325 1 tab PO Q6H PRN Pain 04/04/22 04/04/22 Unknown History mg tablet omeprazole 20 mg capsule,delayed 20 mg PO BID 04/04/22 04/04/22 04/03/22 History release Allergies Allergy/AdvReac Type Severity Reaction Status Date / Time cefaclor [From Ceclor] Allergy rash Verified 03/16/22 10:14 metoclopramide [From Reglan] Allergy bites his Verified 03/16/22 10:14 tongue prochlorperazine Allergy no IV just Verified 03/16/22 10:14 [From Compazine] oral Current Medications Generic Name Dose Route Start Last Admin Trade Name Mathewq PRN Reason Stop Dose Admin Amlodipine Besylate 2.5 mg 04/05/22 09:00 04/05/22 09:44 Amlodipine 5 Mg Tablet PO 2.5 mg DAILY STONE Administration Furosemide 80 mg 04/05/22 06:00 04/06/22 05:36 Furosemide 40 Mg Tablet PO 80 mg QAM STONE Administration Dextrose/Sodium Chloride 1,000 mls @ 75 mls/hr 04/06/22 06:15 04/06/22 09:00 Dextrose 5%-Sod Chloride 0.9% IV 0 mls/hr .[id number] STONE Infusion Sodium Chloride 1,000 mls @ 30 mls/hr 04/06/22 09:30 04/06/22 09:34 Sodium Chloride 0.9% IV 04/07/22 09:29 30 mls/hr .Q24H STONE Administration Insulin Detemir 10 unit 04/05/22 21:00 04/05/22 21:39 Insulin Detemir 100 Units/1 Ml SUBCUT 10 unit BEDTIME STONE Administration Insulin Human Lispro 0 unit 04/04/22 22:11 04/06/22 08:37 Insulin Lispro 100 Unit/1 Ml SUBCUT Not Given TIDWM STONE Protocol Labetalol HCl 10 mg 04/04/22 22:27 04/04/22 22:53 Labetalol 5 Mg/Ml Sdv 20ml IVP 10 mg Q4H PRN Administration DIASTOLIC BLOOD PRESSURE Pantoprazole Sodium 40 mg 04/04/22 22:11 04/05/22 21:40 Pantoprazole 40 Mg Sdv IVP 40 mg Q12H STONE Administration Potassium Chloride 20 meq 04/05/22 09:00 04/05/22 17:35 Potassium Chloride Er 20 Meq Tablet PO 20 meq BID STONE Administration Sucralfate 1 gm 04/04/22 22:11 04/05/22 21:40 Sucralfate 1 Gm Tablet PO 1 gm Q12H STONE Administration PFSH Anesthesia Medical History Anemia Depression Diabetes 1.5, managed as type 1 Diabetic peripheral neuropathy DKA, type 1 Surgical History History of cholecystectomy History of jejunostomy History of pyloroplasty Family History Other Chronic kidney disease (CKD) Social History Smoking and tobacco status: never smoked Alcohol intake: former Data Anesthesia : 04/05/22 04:41 04/06/22 04:12 Short CBC 04/04/22 04/04/22 04/05/22 Range/Units 11:24 20:18 04:41 WBC 10.0 8.4 (4.0-10.0) 10^3/uL Hgb 9.2 L 8.8 L 8.0 L (11.7-16.6) g/dL Hct 28.2 L 28.1 L 25.2 L (42.0-52.0) % MCV 91.0 92.6 (80-94) fl Plt Count 466 H 369 (130-400) 10^3/cmm Neut % (Auto) 78.1 63.6 % Neut # (Auto) 7.83 H 5.34 (1.8-7.7) 10^3/uL BMP 04/04/22 04/05/22 04/05/22 11:24 04:41 04:41 Sodium 142 Cancelled 137 Potassium 4.0 Cancelled 4.2 Chloride 100 Cancelled 100 Carbon Dioxide 28 Cancelled 27 BUN 27 H Cancelled 38 H Creatinine 2.4 H Cancelled 4.1 H Glucose 105 Cancelled 213 H Calcium 9.1 Cancelled 7.8 L 04/06/22 04:12 Sodium 133 L Potassium 4.8 Chloride 98 Carbon Dioxide 23 BUN 41 H Creatinine 4.8 H Glucose 128 H Calcium 7.6 L Cardiac Enzymes 04/04/22 Range/Units 20:18 NT-Pro-B Natriuret Pep 94654 H (0-125) pg/mL Liver Function 04/05/22 04/06/22 Range/Units 04:41 04:12 Total Bilirubin 0.3 0.4 (0.15-1.2) mg/dL AST 26 33 (0-40) U/L ALT 40 41 (0-41) U/L Alkaline Phosphatase 104 102 (40-130) U/L Albumin 2.8 L 2.9 L (3.5-5.2) g/dL Coags 04/05/22 04:41 PT 13.90 INR 1.04 Cardiac Studies: Echocardiogram 03/07/22
[2022-04-06 10:18] LABS: Basophils # 0.1 10^3/uL (0.0-0.1); Basophils % 0.9 %; Eosinophils # 0.3 10^3/uL (0.0-0.8); Eosinophils % 3.7 %; Hematocrit 25.6 % (42.0-52.0); Hemoglobin 8.1 g/dL (11.7-16.6); Lymphocytes # 2.4 10^3/uL (0.8-4.8); Lymphocytes % 27.5 %; Mean Corpuscular HGB Conc 31.6 g/dL (30.0-36.0); Mean Corpuscular Hemoglobin 29.9 pg (28.0-34.0); Mean Corpuscular Volume 94.5 fl (80-94); Mean Platelet Volume 11.7 fL (7.4-10.4); Monocytes # 0.7 10^3/uL (0.2-0.9); Monocytes % 8.3 %; Neutrophils # 5.15 10^3/uL (1.8-7.7); Neutrophils % 59.4 %; Nucleated Red Blood Cells % 0 %; Platelet Count 395 10^3/cmm (130-400); Red Blood Count 2.71 10^6/uL (4.1-5.3); Red Cell Distribution Width 12.7 % (12.1-15.1); White Blood Count 8.7 10^3/uL (4.0-10.0)
--- NOTE | 2022-04-06 10:55 | W.PM.OPSUD ---
Surgery/Procedure H&P Update DATE OF PROCEDURE: April 06, 2022 DATE H&P PERFORMED: 04/05/22 PLANNED PROCEDURE: Operation Date: 04/06/22 10:30 Proposed Procedures p EGD(Not Applicable) - Julio César Burch DO
--- NOTE | 2022-04-06 11:47 | P.PN_ITS ---
Vitals/I&O/Wt Last Vital Signs Temp 97 F L 04/06/22 11:11 Pulse 76 04/06/22 11:21 Resp 18 04/06/22 11:21 BP 131/82 04/06/22 11:21 Pulse Ox 97 04/06/22 11:21 O2 Del Method 04/06/22 11:21 04/05/22 04/06/22 04/06/22 22:59 06:59 14:59 Intake Total 880 / 1632.5 1477 / 3109.5 443.75 / 443.75 Balance 880 / 1632.5 1477 / 3109.5 443.75 / 443.75 Weight last 48 hrs Weight 148 lb 4.8 oz Data : 04/06/22 04:12 04/06/22 04:12 A&P Assessment and plan (1) Hematemesis: Status: Acute Plan Small hiatal hernia seen on EGD. No gastritis or evidence of bleeding. Surgically stable for discharge Attestations 2 Medical Necessity Statement*: Further hospitalization per hospitalist Coding Level of Care Code Acute Online Content Coordinator for [facility] Fwd Diagnoses Hematemesis K92.0
[2022-04-06] MEDS: potassium chloride ER 20 mEq Tablet PO (12:02)
[2022-04-06] MEDS: amlodipine 5 mg Tablet 2.5 MG PO (12:02)
[2022-04-06] MEDS: amlodipine 5 mg Tablet 7.5 MG PO (13:13)
--- NOTE | 2022-04-06 13:26 | ANE.PACU2 ---
Inpatient post-anesthesia follow up: Airway intact: Yes Vital signs: Temperature 97 F Pulse Rate 83 Respiratory Rate 16 Blood Pressure 192/108 Pulse Oximetry 96 Oxygen Delivery Me thod [ Room Air Current Rate & Del colin] Oxygen Delivery Me thod Room Air Oxygen Flow Rate Fraction of Inspir ed Oxygen Hydration adequate: Yes Nausea and vomiting: No Pain level: 1 Mental status: Baseline
[2022-04-06] MEDS: hyDRALAzine 20 mg/mL INJ 1 mL 10 MG IVP (15:30)
--- NOTE | 2022-04-06 16:21 | P.DS_ITS ---
Discharge Providers Date of Admission: 04/04/22 17:10 Date of Discharge: April 06, 2022 Attending Provider at Admission: Meek Vazquez MD Attending Provider at Discharge: Margarette Swenson MD Consults: Julio César Burch MD/General Surgery Primary Care Provider: Amrit Antoine MD Diagnoses at Discharge Discharge Diagnosis (1) Hematemesis: Status: Resolved (2) Acute on chronic anemia: Status: Acute (3) Essential hypertension: Status: Acute (4) CKD (chronic kidney disease): Status: Acute Reason for Visit Reason for Visit: N/V Brief History: Fabián Ortiz Jr is a 41 year old male with a past medical history of type I diabetes mellitus, depression, recently placed on dialysis for end-stage renal disease, who presents [facility] due to intractable nausea and vomiting.?Some episodes of vomitus appearing black tarry.? He has a history of gastric ulcers, he has had multiple EGDs, he has never had any surgery.? Denies any NSAID use.? Denies being on any blood thinners.? Denies any lightheadedness, denies any dizziness.? Denies a history of esophageal varices, denies drinking alcohol Hospital Course Hospital Course He was admitted to the hospital due to concern for Gi bleeding. He underwent UGI endoscopy today which was normal. No bleeding was noted. He had not had any further episodes of vomiting or hematemesis. His SBP today was elevated to 190 mmhg, he states this is not unusual for hime. He was given po amlodipine 10mg and 5mg iv hydaralazine after which SBP is improved to 153mmhg. AMlodipine has been increased at discharge to 10mg po daily. He has scheduled HD tomorrow. He is eager to return home and resume this as outpatient. Physical Exam Narrative: General: No acute distress, AO x3 HEENT: PERRLA, pupils bilaterally equal and reactive, pallors not present Chest: Normal vesicular breath sounds, no added sounds, equal good air entry bilaterally CVS: S1-S2 regular, no murmurs, no tachycardia, no gallops, no rubs Abdomen: Soft, nontender, no organomegaly, bowel sounds present Neuro: No focal deficits, no facial deformity, AO x3, power 5/5 in all limbs Discharge Data Studies Completed and Pending Completed Studies During Hospitalization Category Date Time Status CT abdomen pelvis wo con [id number] Stat Cat Scan 04/04/22 13:05 Completed Pending at discharge Category Date Time Status Comprehensive Metabolic Panel AM LABS Lab 04/07/22 04:00 Ordered Magnesium AM LABS Lab 04/07/22 04:00 Ordered Phosphorus AM LABS Lab 04/07/22 04:00 Ordered Radiology Impressions Abdomen/Pelvis CT 04/04/22 13:05 IMPRESSION: No acute abdominal or pelvic abnormality. Small bilateral pleural effusions. ADDENDUM: 04/04/22 1524 This is an addendum to prior report on CT abdomen and pelvis without contrast dated 04/04/2022 at 2:18 p.m.. Infiltrates/pneumonia at bilateral lung bases. Laboratory Results WBC 8.7 10^3/uL (4.0-10.0) 04/06/22 04:12 RBC 2.71 10^6/uL (4.1-5.3) L 04/06/22 04:12 Hgb 8.1 g/dL (11.7-16.6) L 04/06/22 04:12 Hct 25.6 % (42.0-52.0) L 04/06/22 04:12 MCV 94.5 fl (80-94) H 04/06/22 04:12 MCH 29.9 pg (28.0-34.0) 04/06/22 04:12 MCHC 31.6 g/dL (30.0-36.0) 04/06/22 04:12 RDW 12.7 % (12.1-15.1) 04/06/22 04:12 Plt Count 395 10^3/cmm (130-400) 04/06/22 04:12 MPV 11.7 fL (7.4-10.4) H 04/06/22 04:12 Neut % (Auto) 59.4 % 04/06/22 04:12 Lymph % (Auto) 27.5 % 04/06/22 04:12 [place] % (Auto) 8.3 % 04/06/22 04:12 Eos % (Auto) 3.7 % 04/06/22 04:12 Baso % (Auto) 0.9 % 04/06/22 04:12 Neut # (Auto) 5.15 10^3/uL (1.8-7.7) 04/06/22 04:12 Lymph # (Auto) 2.4 10^3/uL (0.8-4.8) 04/06/22 04:12 [place] # (Auto) 0.7 10^3/uL (0.2-0.9) 04/06/22 04:12 Eos # (Auto) 0.3 10^3/uL (0.0-0.8) 04/06/22 04:12 Baso # (Auto) 0.1 10^3/uL (0.0-0.1) 04/06/22 04:12 Nucleated RBC % (auto) 0 % 04/06/22 04:12 Nucleated RBCs # 0.0 /100WBC 04/06/22 04:12 PT 13.90 SECONDS (12.1-14.9) 04/05/22 04:41 INR 1.04 (0.8-1.2) 04/05/22 04:41 Sodium 133 mmol/L (136-145) L 04/06/22 04:12 Potassium 4.8 mmol/L (3.5-5.1) 04/06/22 04:12 Chloride 98 mmol/L (98-107) 04/06/22 04:12 Carbon Dioxide 23 mmol/L (22-29) 04/06/22 04:12 Anion Gap 16.8 (5-19) 04/06/22 04:12 BUN 41 mg/dL (6-20) H 04/06/22 04:12 Creatinine 4.8 mg/dL (0.7-1.2) H 04/06/22 04:12 GFR Calculation 13.3 mL/min (90-130) L 04/06/22 04:12 Glucose 128 mg/dL (65-115) H 04/06/22 04:12 POC Glucose 82 mg/dL (70-110) 04/06/22 06:33 Calculated Osmolality 288 mOsm/kg (285-295) 04/06/22 04:12 Lactic Acid 1.1 mmol/L (0.5-2.2) 04/05/22 04:41 Calcium 7.6 mg/dL (8.5-10.5) L 04/06/22 04:12 Phosphorus 4.1 mg/dL (2.5-4.5) 04/06/22 04:12 Magnesium 1.9 mg/dL (1.7-2.3) 04/06/22 04:12 Total Bilirubin 0.4 mg/dL (0.15-1.2) 04/06/22 04:12 AST 33 U/L (0-40) 04/06/22 04:12 ALT 41 U/L (0-41) 04/06/22 04:12 Alkaline Phosphatase 102 U/L (40-130) 04/06/22 04:12 NT-Pro-B Natriuret Pep 01818 pg/mL (0-125) H 04/04/22 20:18 Total Protein 5.5 g/dL (6.6-8.7) L 04/06/22 04:12 Albumin 2.9 g/dL (3.5-5.2) L 04/06/22 04:12 Globulin 2.6 g/dL (1.3-4.6) 04/06/22 04:12 TSH 1.42 uIU/mL (0.27-4.20) 04/04/22 11:24 Gastric Occult Blood Positive (Negative) H 04/04/22 14:50 Vitals Last Vital Signs Temp 97 F L 04/06/22 11:11 Pulse 83 04/06/22 12:00 Resp 16 04/06/22 12:00 BP 192/108 04/06/22 12:00 Pulse Ox 96 04/06/22 12:00 O2 Del Method 04/06/22 12:00 Discharge Plan Discharge Patient Disposition: Home Condition: Stable Prescriptions: Continued diphenhydramine HCl [Benadryl] 25 mg capsule 25 mg PO TID PRN (Reason: Allergic Reaction) furosemide [Lasix] 40 mg tablet 80 mg PO QAM potassium chloride 20 mEq tablet extended release 20 meq PO TID scopolamine base 1 mg over 3 days patch 3 day 1 patch TRANSDERMA Q3D PRN (Reason: nausea and vomiting) Qty: 10 2RF Label Comments: I take it sometimes FreeStyle Alicia 14 Day Sensor Kit See Rx Instructions .ROUTE .COMPLEX Qty: 1 11RF Dose Instruction: USE DIRECTED. Rx Instructions: USE DIRECTED. insulin lispro [Humalog KwikPen Insulin] 100 unit/mL insulin pen 20 unit SUBCUT TID 30 Days Qty: 15 11RF Levemir FlexTouch U-100 Insuln 100 unit/mL (3 mL) insulin pen 20 unit SUBCUT DAILY Qty: 15 9RF albuterol sulfate 90 mcg/actuation HFA aerosol inhaler 2 inh inhalation Q8H PRN (Reason: shortness of breath or wheezing) Qty: 8.5 0RF hydrocodone-acetaminophen 5-325 mg tablet 1 tab PO Q6H PRN (Reason: Pain) omeprazole 20 mg capsule,delayed release(DR/EC) 20 mg PO BID Changed amlodipine 2.5 mg tablet 10 mg PO DAILY 30 Days Qty: 30 3RF Discharge Orders: Discharge Order (Routine); Ordered 04/06/22 Ordered By: Margarette Swenson Referrals: Amrit Antoine MD [Primary Care Provider] - (Please call Wednesday to schedule a follow up appointment.) Discharge Diet: Usual diet Discharge Activity: Resume usual activity Patient Instructions: Acute Kidney Injury (DC), Acute Nausea and Vomiting (DC), GI Discharge Instructions, Opioid Safety Discharge Attestations Time Spent in Discharge Care*: greater than 30 min Quality Metrics Clinical Quality Measures [ No reported AMI, CVA or VTE this stay] Coding Level of Care Code Acute Chg FW DC note Diagnoses Hematemesis K92.0 Acute on chronic anemia D64.9 Essential hypertension I10 CKD (chronic kidney disease) N18.9
[2022-04-06 17:14] LABS: Glucose Point of Care 473 mg/dL (70-110)
[2022-04-06] MEDS: insulin lispro 100 unit/1 mL SUBCUT (17:32)
--- NOTE | 2022-04-06 17:55 | PC.NURSE ---
pt had emesis with blood glucose at 449. physician notified. pt covered with sliding scale of humalog. emesis ceased. pt stated he felt ok for discharge.
== END 2022-04-06 17:58 | disposition home or self-care (01) ==
LOC: ER 19:17 → MEDSURG 21:53
PROVIDERS: Surgery; Admitting Provider Family Medicine; Emergency Provider Family Medicine; PCP Family Medicine; Visit Provider Student in an Organized Health Care Education/Training Program
PROC: 0DJ08ZZ Inspection of Upper Intestinal Tract, Via Natural or Artificial Opening Endoscopic (ICD-10-PCS; CPT 43235; principal; 2022-04-06 10:30)
DX: K92.0 Hematemesis (principal); D64.9 Anemia, unspecified; I13.2 Hypertensive heart and chronic kidney disease with heart failure and with stage 5 chronic kidney disease, or end stage renal disease; I50.30 Unspecified diastolic (congestive) heart failure; N18.6 End stage renal disease; E13.42 Other specified diabetes mellitus with diabetic polyneuropathy; N17.9 Acute kidney failure, unspecified; E10.22 Type 1 diabetes mellitus with diabetic chronic kidney disease; K44.9 Diaphragmatic hernia without obstruction or gangrene; K21.9 Gastro-esophageal reflux disease without esophagitis; Z99.2 Dependence on renal dialysis; Z79.4 Long term (current) use of insulin; Z88.1 Allergy status to other antibiotic agents
CPT/HCPCS: 36415; 36416; 43235; 74176; 80048; 80053; 82271; 82962; 83605; 83735; 83880; 84100; 84443; 85014; 85018; 85025; 85610; 94664; 94760; 96361; 96372; 96374; 96375; 99285; C9113; G0378; J0360; J1815; J2405; J2704; J3490; J7030

== ENCOUNTER 2022-06-03 00:11 | Emergency (ER) | payer MEDICARE, MEDICAID, SELFPAY ==
[2022-06-03 00:13] VITALS: BMI 22.1
[2022-06-03 00:18] VITALS: PULSE 89; RESP 18; TEMP 36.3; O2SAT 96
[2022-06-03] MEDS: sodium chloride 0.9% 1,000 ML 999 ML IV (00:25)
[2022-06-03 00:28] LABS: Basophils # 0.2 10^3/uL (0.0-0.1); Basophils % 1.3 %; Eosinophils # 0.2 10^3/uL (0.0-0.8); Eosinophils % 1.3 %; Hematocrit 25.3 % (42.0-52.0); Hemoglobin 7.9 g/dL (11.7-16.6); Lymphocytes # 2.3 10^3/uL (0.8-4.8); Lymphocytes % 17.9 %; Mean Corpuscular HGB Conc 31.2 g/dL (30.0-36.0); Mean Corpuscular Hemoglobin 30.6 pg (28.0-34.0); Mean Corpuscular Volume 98.1 fl (80-94); Mean Platelet Volume 9.8 fL (7.4-10.4); Monocytes # 1.2 10^3/uL (0.2-0.9); Monocytes % 9.2 %; Neutrophils # 8.85 10^3/uL (1.8-7.7); Neutrophils % 69.1 %; Nucleated Red Blood Cells % 0 %; Platelet Count 564 10^3/cmm (130-400); Red Blood Count 2.58 10^6/uL (4.1-5.3); Red Cell Distribution Width 14.3 % (12.1-15.1); White Blood Count 12.8 10^3/uL (4.0-10.0)
--- NOTE | 2022-06-03 00:28 | ED_ITS ---
HPI - General Adult General: Chief complaint: General Medical Stated complaint: Steven Blood Sugar Time Seen by Provider: 06/03/22 00:14 Source: patient and EMS Mode of arrival: EMS Limitations: no limitations History of Present Illness: 41-year-old male with a history of chronic kidney disease he is on dialysis he states he received dialysis yesterday he also has diabetes he is on insulin. He states that he has been taking his insulin quite as prescribed and tonight his blood sugar was in the 500s he did have 1 episode of vomiting he denies any fever denies any recent illness denies any worsening improving factors. Associated symptoms: Deny chest pain, dyspnea, headache(s), nausea, rash or vomiting Review of Systems Const: Denies: fever(s), chills, body aches or change in appetite Eyes: Denies: blurry vision or eye discomfort ENMT: Denies: throat pain or dental pain Card: Denies: chest pain Resp: Denies: dyspnea GI: Denies: abdominal pain, nausea, vomiting or diarrhea : Denies: dysuria Musc: Denies: neck pain or back pain Skin/Breast: Denies: rash Neuro: Denies: headache(s) Psych: Denies: depression Mike/Lymph: Denies: easy bruising All/Imm: Denies: urticaria PFSH ED PFSH: Medical History Anemia Depression Diabetes 1.5, managed as type 1 Diabetic peripheral neuropathy DKA, type 1 Surgical History History of cholecystectomy History of jejunostomy History of pyloroplasty Family History Other Chronic kidney disease (CKD) Social History Smoking and tobacco status: never smoked Alcohol intake: former Physical Exam Const: COMMON NORMALS: no acute distress, patient oriented x3 and healthy appearing HENMT: COMMON NORMALS: normocephalic and atraumatic HEAD & SCALP: normocephalic and atraumatic Eye: COMMON NORMALS: Equal, round and reactive pupils present and EOMs intact bilaterally PUPIL: Yes Equal, round and reactive pupils present Neck/C-Spine: COMMON NORMALS: full ROM and supple Chest: COMMONS NORMALS: normal inspection of the chest and normal palpation of entire chest wall Resp: COMMON NORMALS: normal respiratory effort, No retractions, No use of accessory muscles and clear to auscultation bilaterally AUSCULTATION: clear to auscultation bilaterally Cardio: COMMON NORMALS: regular rate, regular rhythm and No murmurs present (Cardio) RATE: regular rate RHYTHM: regular rhythm GI: COMMON NORMALS: Normal to inspection, nondistended, normoactive bowel sounds present, Soft to palpation, non-tender and no masses PALPATION: Yes Soft to palpation Extremity: COMMON NORMALS: normal to inspection and full ROM Neuro: COMMON NORMALS: patient oriented x3, moves all extremities and no focal motor deficits Psych: COMMON NORMALS: mental status grossly normal, Normal thought process present and cooperative THOUGHT PROCESS: Normal thought process present Skin: COMMON NORMALS: no rashes or lesions noted and no wounds GENERAL SKIN EXAM: no rashes or lesions noted Course Vital Signs: Vital signs: Vital Signs Temperature 97.3 F L 06/03/22 00:18 Pulse Rate 70 06/03/22 02:16 Respiratory Rate 16 06/03/22 02:16 Blood Pressure 141/95 06/03/22 02:16 Pulse Oximetry 92 06/03/22 02:16 Oxygen Delivery Me thod 06/03/22 00:18 [facility] - General Adult Medical Decision Making Patient presents here with hyperglycemia he is well-appearing here is some slight pulm edema but he is due to have dialysis tomorrow he is to receive dialysis scheduled he is not DKA his blood sugars improved he stable for discharge. Lab Data : 06/03/22 00:23 06/03/22 00:23 Radiology Impressions Chest X-Ray 06/03/22 00:32 IMPRESSION: 1. Findings suspicious for mild CHF/pulmonary edema/fluid overload. See above discussion. 2. Other findings discussed above. Laboratory Results WBC 12.8 10^3/uL (4.0-10.0) H 06/03/22 00:23 RBC 2.58 10^6/uL (4.1-5.3) L 06/03/22 00:23 Hgb 7.9 g/dL (11.7-16.6) L 06/03/22 00:23 Hct 25.3 % (42.0-52.0) L 06/03/22 00: MCV 98.1 fl (80-94) H 06/03/22: MCH 30.6 pg (28.0-34.0) 06/03/22 00: MCHC 31.2 g/dL (30.0-36.0) 06/03/22: RDW 14.3 % (12.1-15.1) 06/03/22 00: Plt Count 564 10^3/cmm (130-400) H 06/03/22 00: MPV 9.8 fL (7.4-10.4) 06/03/22 00: Neut % (Auto) 69.1 % 06/03/22: Lymph % (Auto) 17.9 % 06/03/22: [place] % (Auto) 9.2 % 06/03/22: Eos % (Auto) 1.3 % 06/03/22 00: Baso % (Auto) 1.3 % 06/03/22 00: Neut # (Auto) 8.85 10^3/uL (1.8-7.7) H 06/03/22 00: Lymph # (Auto) 2.3 10^3/uL (0.8-4.8) 06/03/22 00: [place] # (Auto) 1.2 10^3/uL (0.2-0.9) H 06/03/22 00: Eos # (Auto) 0.2 10^3/uL (0.0-0.8) 06/03/22 00: Baso # (Auto) 0.2 10^3/uL (0.0-0.1) H 06/03/22 00: Nucleated RBC % (auto) 0 % 06/03/22: Nucleated RBCs # 0.0 /100WBC 06/03/22 00: Specimen Type Arterial 06/03/22 01:30 Sample Site Brachial, left 06/03/22 01:30 ABG pH 7.30 (7.35-7.45) L 06/03/22 01:30 ABG pCO2 53.4 mmHg (35-45) H 06/03/22 01:30 ABG pO2 79.3 mmHg (80.0-100.0) L 06/03/22 01:30 ABG HCO3 26.4 mmol/L (22-26) H 06/03/22 01:30 ABG Base Excess -0.7 mmol/L (-2.0-2.0) 06/03/22 01:30 Santosh Test N/a 06/03/22 01:30 Hematocrit 36.8 % (42-52) L 06/03/22 01:30 O2 Delivery Device Room air 06/03/22 01:30 FiO2 21.0 % 06/03/22 01:30 Buffing Line Set Up Worker ID glc 06/03/22 01:30 Sodium 136 mmol/L (136-145) 06/03/22 00:23 Potassium 5.4 mmol/L (3.5-5.1) H 06/03/22 00:23 Chloride 98 mmol/L (98-107) 06/03/22 00: Carbon Dioxide 25 mmol/L (22-29) 06/03/22 00:23 Anion Gap 18.4 (5-19) 06/03/22 00:23 BUN 57 mg/dL (6-20) H 06/03/22 00:23 Creatinine 7.5 mg/dL (0.7-1.2) H* 06/03/22 00:23 GFR Calculation 8.0 mL/min (90-130) L 06/03/22 00:23 Glucose 473 mg/dL (65-115) H 06/03/22 00:23 POC Glucose 222 mg/dL (70-110) H 06/03/22 02:15 Calculated Osmolality 319 mOsm/kg (285-295) H 06/03/22 00:23 Calcium 8.1 mg/dL (8.5-10.5) L 06/03/22 00:23 Total Bilirubin 0.2 mg/dL (0.15-1.2) 06/03/22 00:23 AST 21 U/L (0-40) 06/03/22 00:23 ALT 32 U/L (0-41) 06/03/22 00:23 Alkaline Phosphatase 138 U/L (40-130) H 06/03/22 00:23 Total Protein 6.4 g/dL (6.6-8.7) L 06/03/22 00:23 Albumin 3.5 g/dL (3.5-5.2) 06/03/22 00:23 Globulin 2.9 g/dL (1.3-4.6) 06/03/22 00:23 Lipase 51 U/L (13-60) 06/03/22 00:23 Serum Ketones Negative (Negative) 06/03/22 00:23 Discharge Plan Discharge Patient Disposition: Home Clinical Impression: Hyperglycemia Condition: Stable Prescriptions: No Action diphenhydramine HCl [Benadryl] 25 mg capsule 25 mg PO TID PRN (Reason: Allergic Reaction) furosemide [Lasix] 40 mg tablet 80 mg PO QAM potassium chloride 20 mEq tablet extended release 20 meq PO TID scopolamine base 1 mg over 3 days patch 3 day 1 patch TRANSDERMA Q3D PRN (Reason: nausea and vomiting) Qty: 10 2RF Label Comments: I take it sometimes FreeStyle Alicia 14 Day Sensor Kit See Rx Instructions .ROUTE .COMPLEX Qty: 1 11RF Dose Instruction: USE DIRECTED. Rx Instructions: USE DIRECTED. amlodipine 2.5 mg tablet 10 mg PO DAILY 30 Days Qty: 30 3RF Levemir FlexTouch U-100 Insuln 100 unit/mL (3 mL) insulin pen 20 unit SUBCUT DAILY Qty: 15 9RF insulin lispro [Humalog KwikPen Insulin] 100 unit/mL insulin pen 20 unit SUBCUT TID 30 Days Qty: 15 11RF hydrocodone-acetaminophen 5-325 mg tablet 1 tab PO Q6H PRN (Reason: Pain) 30 Days Qty: 120 0RF albuterol sulfate 90 mcg/actuation HFA aerosol inhaler 2 inh inhalation Q8H PRN (Reason: shortness of breath or wheezing) Qty: 8.5 0RF omeprazole 20 mg capsule,delayed release(DR/EC) 20 mg PO BID Discharge Orders: Discharge ED (Routine); Ordered 06/03/22 Ordered By: Pete Enriquez Referrals: Amrit Antoine MD [Primary Care Provider] - Discharge Diet: Advance as tolerated Discharge Activity: Resume usual activity Patient Instructions: Diabetic Hyperglycemia (ED) Coding Level of Care Code ED General Utility Maintenance Repairer for Chg Fwd Exam Comprehensive
--- NOTE | 2022-06-03 00:32 | XRR_ITS ---
PROCEDURE INFORMATION: Exam: XR Chest Exam date and time: 06/03/2022 12:39 AM Age: 41 years old Clinical indication: Shortness of breath; Prior surgery; Surgery type: Hemo dialysis cath; Patient HX: Lethargy with SOB and elevated blood sugar. TECHNIQUE: Imaging protocol: Radiologic exam of the chest. Views: 1 view. COMPARISON: CR (CHEST, ) 03/06/2022 5:50 PM FINDINGS: Tubes, catheters and devices: Right central venous catheter present, tip probably in the right atrium of the heart. Lungs: Suspect mild pulmonary vascular congestion/CHF/fluid overload. Mild prominence of the perihilar lung markings bilaterally, with some peribronchial thickening. This appearance likely represents some interstitial pulmonary edema. Some type of bronchitis/pneumonitis might also be considered. Please correlate clinically. Pleural spaces: No visible pneumothorax. No definite pleural fluid. Heart/Mediastinum: Heart size is upper range of normal. Bones/joints: No significant acute finding. XR/XR chest 1V portable [id number] IMPRESSION: 1. Findings suspicious for mild CHF/pulmonary edema/fluid overload. See above discussion. 2. Other findings discussed above.
[2022-06-03 00:37] LABS: Glucose Point of Care 459 mg/dL (70-110)
[2022-06-03 00:38] VITALS: BP 128/82; PULSE 78; RESP 16; O2SAT 88
[2022-06-03] MEDS: insulin regular-human 100 units/1 mL 10 UNIT IVP (00:40)
[2022-06-03 00:45] LABS: Ketone (Acetest) Serum Negative (Negative)
[2022-06-03 00:50] LABS: Alanine Aminotransferase 32 U/L (0-41); Albumin Level 3.5 g/dL (3.5-5.2); Alkaline Phosphatase 138 U/L (40-130); Aspartate Amino Transferase 21 U/L (0-40); Chloride 98 mmol/L (98-107); Glucose 473 mg/dL (65-115); Potassium 5.4 mmol/L (3.5-5.1); Sodium 136 mmol/L (136-145)
[2022-06-03 01:01] VITALS: BP 124/78; PULSE 74; RESP 16; O2SAT 89
[2022-06-03 01:04] LABS: Anion Gap 18.4 (5-19); Blood Urea Nitrogen 57 mg/dL (6-20); Calcium 8.1 mg/dL (8.5-10.5); Carbon Dioxide 25 mmol/L (22-29); Globulin 2.9 g/dL (1.3-4.6); Lipase 51 U/L (13-60); Osmolality Calculated 319 mOsm/kg (285-295); Total Bilirubin 0.2 mg/dL (0.15-1.2); Total Protein 6.4 g/dL (6.6-8.7)
[2022-06-03 01:17] VITALS: BP 123/74; PULSE 74; RESP 16; O2SAT 90
[2022-06-03 01:32] VITALS: BP 144/87; PULSE 76; RESP 16; O2SAT 91
[2022-06-03 01:34] LABS: Glucose Point of Care 341 mg/dL (70-110)
[2022-06-03 01:40] LABS: ABG PCO2 53.4 mmHg (35-45); Arterial Blood Gas Hematocrit 36.8 % (42-52); Base Excess ABG -0.7 mmol/L (-2.0-2.0); Blood Gas Operator Identificat glc; Blood Gas Sample Site Brachial, left; Blood Gas Sample Type Arterial; HCO3 ABG 26.4 mmol/L (22-26); Oxygen Device ROOM AIR; PO2 ABG 79.3 mmHg (80.0-100.0)
[2022-06-03 02:16] VITALS: BP 141/95; PULSE 70; RESP 16; O2SAT 92
[2022-06-03 02:18] LABS: Glucose Point of Care 222 mg/dL (70-110)
--- NOTE | 2022-06-03 02:35 | PC.NURSE ---
SPoke with mother dixie, she will come to poultry picker pt
== END 2022-06-03 03:19 | disposition home or self-care (01) ==
PROVIDERS: Emergency Provider Emergency Medicine; PCP Family Medicine
DX: E13.65 Other specified diabetes mellitus with hyperglycemia (principal); Z79.4 Long term (current) use of insulin
CPT/HCPCS: 36416; 36600; 71045; 80053; 82009; 82803; 82962; 83690; 85025; 96361; 96374; 99284; J1815; J7030

== ENCOUNTER → 2022-07-08 13:03 | Outpatient (BNVA) | payer MEDICARE, MEDICAID, SELFPAY | PROVIDERS: PCP Family Medicine; Visit Provider Nurse Practitioner Family | DX: T87.81 Dehiscence of amputation stump (principal); Y83.8 Other surgical procedures as the cause of abnormal reaction of the patient, or of later complication, without mention of misadventure at the time of the procedure; E11.621 Type 2 diabetes mellitus with foot ulcer; L97.412 Non-pressure chronic ulcer of right heel and midfoot with fat layer exposed; Z89.421 Acquired absence of other right toe(s) | CPT/HCPCS: 11042; 99213 ==

== ENCOUNTER → 2022-07-22 13:43 | Outpatient (BNVA) | payer MEDICARE, MEDICAID, SELFPAY | PROVIDERS: PCP Family Medicine; Visit Provider Thoracic Surgery (Cardiothoracic Vascular Surgery) | DX: T87.81 Dehiscence of amputation stump (principal); Y83.8 Other surgical procedures as the cause of abnormal reaction of the patient, or of later complication, without mention of misadventure at the time of the procedure; I96 Gangrene, not elsewhere classified; E11.621 Type 2 diabetes mellitus with foot ulcer; L97.512 Non-pressure chronic ulcer of other part of right foot with fat layer exposed; Z89.421 Acquired absence of other right toe(s) | CPT/HCPCS: 11042 ==

== ENCOUNTER → 2022-08-14 14:31 | Outpatient (BNVA) | payer MEDICARE, MEDICAID, SELFPAY | PROVIDERS: PCP Family Medicine; Visit Provider Thoracic Surgery (Cardiothoracic Vascular Surgery) | DX: T87.81 Dehiscence of amputation stump (principal); Y83.8 Other surgical procedures as the cause of abnormal reaction of the patient, or of later complication, without mention of misadventure at the time of the procedure; E11.621 Type 2 diabetes mellitus with foot ulcer; L97.522 Non-pressure chronic ulcer of other part of left foot with fat layer exposed; Z89.421 Acquired absence of other right toe(s) | CPT/HCPCS: 11042 ==

== ENCOUNTER → 2022-08-21 15:00 | Outpatient (BNVA) | payer MEDICARE, MEDICAID, SELFPAY | PROVIDERS: PCP Family Medicine; Visit Provider Thoracic Surgery (Cardiothoracic Vascular Surgery) | DX: T87.81 Dehiscence of amputation stump (principal); Y83.8 Other surgical procedures as the cause of abnormal reaction of the patient, or of later complication, without mention of misadventure at the time of the procedure; E11.621 Type 2 diabetes mellitus with foot ulcer; L97.512 Non-pressure chronic ulcer of other part of right foot with fat layer exposed | CPT/HCPCS: 99212 ==

== ENCOUNTER 2022-10-12 05:31 | Emergency (ER) | payer MEDICARE, MEDICAID, SELFPAY ==
[2022-10-12] VITALS (24 sets, daily range): BP systolic 156–186; BP diastolic 93–125; PULSE 76–89; RESP 16; TEMP 36.3; O2SAT 94–100; BMI 22.1
[2022-10-12 05:46] LABS: Glucose Point of Care 214 mg/dL (70-110)
--- NOTE | 2022-10-12 06:01 | ED_ITS ---
HPI - Recheck/Abnormal Lab/Rx General: Chief Complaint: Seizure Stated Complaint: hypoglycemic seizure Time Seen by Provider: 10/12/22 05:47 Source: patient Mode of arrival: EMS History of Present Illness: . MD complaint: abnormal lab Review of Systems Const: Denies: fever(s), chills, body aches, change in appetite, fatigue or malaise ENMT: Denies: throat pain, ear or mastoid pain, nasal discharge or nasal congestion Card: Denies: chest pain, edema, dyspnea on exertion or orthopnea Resp: Denies: dyspnea, productive cough or non-productive cough GI: Denies: abdominal pain, nausea, vomiting, hematemesis, coffee ground emesis, diarrhea, constipation, bloating, hematochezia or melena : Denies: flank pain, dysuria, urinary frequency or urinary urgency Skin/Breast: Denies: rash or pruritus PFSH ED PFSH: Medical History Anemia Depression Diabetes 1.5, managed as type 1 Diabetic peripheral neuropathy DKA, type 1 Surgical History History of cholecystectomy History of jejunostomy History of pyloroplasty Family History Other Chronic kidney disease (CKD) Social History Smoking and tobacco status: never smoked Alcohol intake: former Physical Exam Const: GENERAL APPEARANCE: cooperative and comfortable ORIENTATION/CONSCIOUSNESS: Yes awake, Yes oriented to person, Yes oriented to place and Yes oriented to time HENMT: COMMON NORMALS: normocephalic, atraumatic and hearing grossly normal bilaterally HEAD & SCALP: normocephalic and atraumatic Resp: COMMON NORMALS: normal respiratory effort, No retractions, No use of accessory muscles and clear to auscultation bilaterally AUSCULTATION: clear to auscultation bilaterally Cardio: COMMON NORMALS: regular rate, regular rhythm and No murmurs present (Cardio) RATE: regular rate RHYTHM: regular rhythm GI: COMMON NORMALS: Soft to palpation and No hepatosplenomegaly present AUSCULTATION: Yes normoactive bowel sounds PALPATION: Yes Soft to palpation, No Tenderness to palpation present (GI), No Guarding due to palpation present (GI) and Yes No hepatosplenomegaly present Extremity: COMMON NORMALS: normal to inspection, capillary refill normal, no clubbing, cyanosis or edema, no calf tenderness and no pedal edema Neuro: SENSORIUM/ORIENTATION: Yes oriented to person, Yes oriented to place and Yes oriented to time Skin: COMMON NORMALS: no rashes or lesions noted GENERAL SKIN EXAM: no rashes or lesions noted Course Vital Signs: Vital signs: Vital Signs Temperature 97.3 F L 10/12/22 05:32 Pulse Rate 88 10/12/22 09:15 Respiratory Rate 16 10/12/22 06:34 Blood Pressure 178/107 10/12/22 09:15 Pulse Oximetry 98 10/12/22 09:32 Oxygen Delivery Me thod 10/12/22 08:40 MDM - Recheck/Abnormal Lab/Rx Medical Decision Making Hypoglycemic episodes sound like patient may have had a seizure. He had these before. His mother had called and stated that he had his head when I talked to the patient he thinks he may have hit his head he has not had any vomiting. We offered CT patient declined. His anion gap is elevated we offered 6 observation to correct he declined he was given IV fluids here repeat BMP showed his anion gap was trending down his IV had infiltrated we had ordered more fluid he declined to have the IV restarted prefer to go home. He is due for dialysis tomorrow. Medical Records I reviewed the patient's medical records. Lab Data I reviewed the patient's lab results. 10/12/22 06:20 10/12/22 06:20 Radiology Impressions Chest X-Ray 10/12/22 06:02 IMPRESSION: No acute abnormality. Laboratory Results WBC 7.8 10^3/uL (4.0-10.0) 10/12/22 06:20 RBC 4.69 10^6/uL (4.1-5.3) 10/12/22 06:20 Hgb 13.5 g/dL (11.7-16.6) 10/12/22 06:20 Hct 45.0 % (42.0-52.0) 10/12/22 06:20 MCV 95.9 fl (80-94) H 10/12/22 06:20 MCH 28.8 pg (28.0-34.0) 10/12/22 06:20 MCHC 30.0 g/dL (30.0-36.0) 10/12/22 06:20 RDW 20.3 % (12.1-15.1) H 10/12/22 06:20 Plt Count 257 10^3/cmm (130-400) 10/12/22 06:20 MPV 11.6 fL (7.4-10.4) H 10/12/22 06:20 Neut % (Auto) 83.8 % 10/12/22 06:20 Lymph % (Auto) 10.2 % 10/12/22 06:20 [place] % (Auto) 4.6 % 10/12/22 06:20 Eos % (Auto) 0.5 % 10/12/22 06:20 Baso % (Auto) 0.5 % 10/12/22 06:20 Neut # (Auto) 6.55 10^3/uL (1.8-7.7) 10/12/22 06:20 Lymph # (Auto) 0.8 10^3/uL (0.8-4.8) 10/12/22 06:20 [place] # (Auto) 0.4 10^3/uL (0.2-0.9) 10/12/22 06:20 Eos # (Auto) 0.0 10^3/uL (0.0-0.8) 10/12/22 06:20 Baso # (Auto) 0.0 10^3/uL (0.0-0.1) 10/12/22 06:20 Nucleated RBC % (auto) 0 % 10/12/22 06:20 Nucleated RBCs # 0.0 /100WBC 10/12/22 06:20 Specimen Type Arterial 10/12/22 07:45 Sample Site Brachial, left 10/12/22 07:45 ABG pH 7.41 (7.35-7.45) 10/12/22 07:45 ABG pCO2 41.0 mmHg (35-45) 10/12/22 07:45 ABG pO2 85.3 mmHg (80.0-100.0) 10/12/22 07:45 ABG HCO3 25.8 mmol/L (22-26) 10/12/22 07:45 ABG O2 Saturation 94.9 10/12/22 07:45 ABG Base Excess 1.0 mmol/L (-2.0-2.0) 10/12/22 07:45 Santosh Test Pos 10/12/22 07:45 A-a O2 Gradient 1.6 mmHg (5-10) L 10/12/22 07:45 Hematocrit 34.9 % (42-52) L 10/12/22 07:45 Hgb O2 Saturation 93.9 % (95-100) L 10/12/22 07:45 Carboxyhemoglobin 0.2 %THgb (0.4-20.1) L 10/12/22 07:45 Methemoglobin 0.8 % (0.4-1.5) 10/12/22 07:45 Total Hemoglobin 11.4 g/dL (14-18) L 10/12/22 07:45 Sodium 137.0 mmol/L (131-143) 10/12/22 07:45 Potassium 4.7 mmol/L (3.5-5.0) 10/12/22 07:45 Glucose 218.0 mg/dL (70-115) H 10/12/22 07:45 Ionized Calcium 1.1 mmol/L (1.1-1.4) 10/12/22 07:45 O2 Delivery Device Room air 10/12/22 07:45 FiO2 21.0 % 10/12/22 07:45 Associate Professor Of Pathology ID Cak 10/12/22 07:45 Sodium 134 mmol/L (136-145) L 10/12/22 09:16 Potassium 5.0 mmol/L (3.5-5.1) 10/12/22 09:16 Chloride 95 mmol/L (98-107) L 10/12/22 09:16 Carbon Dioxide 21 mmol/L (22-29) L 10/12/22 09:16 Anion Gap 23.0 (5-19) H 10/12/22 09:16 BUN 65 mg/dL (6-20) H 10/12/22 09:16 Creatinine 7.2 mg/dL (0.7-1.2) H* 10/12/22 09:16 GFR Calculation 8.4 mL/min (90-130) L 10/12/22 09:16 Glucose 238 mg/dL (65-115) H 10/12/22 09:16 POC Glucose 221 mg/dL (70-110) H 10/12/22 07:13 Calculated Osmolality 304 mOsm/kg (285-295) H 10/12/22 09:16 Calcium 8.3 mg/dL (8.5-10.5) L 10/12/22 09:16 Serum Ketones Negative (Negative) 10/12/22 06:20 Discharge Plan Discharge Patient Disposition: Home Clinical Impression: Hypoglycemia, Seizure, Diabetes, ESRD on dialysis Condition: Stable Prescriptions: No Action diphenhydramine HCl [Benadryl] 25 mg capsule 25 mg PO TID PRN (Reason: Allergic Reaction) furosemide [Lasix] 40 mg tablet 80 mg PO QAM potassium chloride 20 mEq tablet extended release 20 meq PO TID scopolamine base 1 mg over 3 days patch 3 day 1 patch TRANSDERMA Q3D PRN (Reason: nausea and vomiting) Qty: 10 2RF Label Comments: I take it sometimes amlodipine 2.5 mg tablet 10 mg PO DAILY 30 Days Qty: 30 3RF Levemir FlexTouch U-100 Insuln 100 unit/mL (3 mL) insulin pen 20 unit SUBCUT DAILY Qty: 15 9RF insulin lispro [Humalog KwikPen Insulin] 100 unit/mL insulin pen 20 unit SUBCUT TID 30 Days Qty: 15 11RF FreeStyle Alicia 14 Day Sensor Kit See Rx Instructions .ROUTE .COMPLEX Qty: 1 11RF Dose Instruction: USE DIRECTED. Rx Instructions: USE DIRECTED. hydrocodone-acetaminophen 5-325 mg tablet 1 tab PO Q6H PRN (Reason: Pain) 30 Days Qty: 120 0RF albuterol sulfate 90 mcg/actuation HFA aerosol inhaler 2 inh inhalation Q8H PRN (Reason: shortness of breath or wheezing) Qty: 8.5 0RF omeprazole 20 mg capsule,delayed release(DR/EC) 20 mg PO BID Discharge Orders: Discharge ED (Routine); Ordered 10/12/22 Ordered By: Clyde Deleon Referrals: Amrit Antoine MD [Primary Care Provider] - Discharge Diet: Usual diet Discharge Activity: Increase activity as tolerated Patient Instructions: Opioid Safety, Pain Management Activity Restrictions/Additional Instructions: You were seen today after an episode of hypoglycemia. You had an elevated anion gap which is a reflection of decreased fluid volume (mild dehydration). You are given IV fluids in the ER and we had advised observation which you declined. Recommend you increase fluid intake and keep your appointment for dialysis tomorrow. If you have any worsening problems or recurrence of symptoms return. Continue to monitor your blood sugars at least every 2-4 hours throughout the day or anytime that you are symptomatic. Coding Level of Care Code ED Bolt Man for Rafi Zavala
--- NOTE | 2022-10-12 06:02 | XRR_ITS ---
PROCEDURE INFORMATION: Exam: XR Chest Exam date and time: 10/12/2022 6:14 AM Age: 41 years old Clinical indication: Cough and dyspnea; Additional info: Dyspnea/cough TECHNIQUE: Imaging protocol: Radiologic exam of the chest. Views: 1 view. COMPARISON: CR (CHEST, ) 06/03/2022 12:39 AM FINDINGS: Tubes, catheters and devices: A dialysis catheter is present with the tip projecting in the SVC. Lungs: Unremarkable. No consolidation. Pleural spaces: Unremarkable. No pleural effusion. No pneumothorax. Heart/Mediastinum: The cardiac silhouette is enlarged but unchanged. Bones/joints: Unremarkable. XR/XR chest 1V portable [id number] IMPRESSION: No acute abnormality.
--- NOTE | 2022-10-12 06:02 | ECG_ITS ---
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 Measurements Intervals [place] Rate: 77 P: 63 CA: 162 QRS: 55 QRSD: 93 T: 38 QT: 451 QTc: 511 Interpretive Statements SINUS RHYTHM PROLONGED QT INTERVAL Compared to ECG 03/07/2022 23:59:59 Prolonged QT interval now present T-wave abnormality no longer present Possible ischemia no longer present Electronically Signed On 10-12-2022 10:50:52 COMPENSATION/BENEFITS SPECIALIST by Kristopher Sims M.D. [id number]
[2022-10-12 06:39] LABS: Basophils % 0.5 %; Eosinophils % 0.5 %; Hemoglobin 13.5 g/dL (11.7-16.6); Lymphocytes # 0.8 10^3/uL (0.8-4.8); Lymphocytes % 10.2 %; Mean Corpuscular Hemoglobin 28.8 pg (28.0-34.0); Mean Corpuscular Volume 95.9 fl (80-94); Mean Platelet Volume 11.6 fL (7.4-10.4); Monocytes # 0.4 10^3/uL (0.2-0.9); Monocytes % 4.6 %; Neutrophils # 6.55 10^3/uL (1.8-7.7); Neutrophils % 83.8 %; Nucleated Red Blood Cells % 0 %; Platelet Count 257 10^3/cmm (130-400); Red Blood Count 4.69 10^6/uL (4.1-5.3); Red Cell Distribution Width 20.3 % (12.1-15.1); White Blood Count 7.8 10^3/uL (4.0-10.0)
[2022-10-12 06:52] LABS: Blood Urea Nitrogen 66 mg/dL (6-20); Calcium 9.2 mg/dL (8.5-10.5); Carbon Dioxide 20 mmol/L (22-29); Chloride 94 mmol/L (98-107); Glomerular Filtration Rate 8.8 mL/min (90-130); Glucose 193 mg/dL (65-115); Osmolality Calculated 306 mOsm/kg (285-295); Sodium 136 mmol/L (136-145)
[2022-10-12 07:03] LABS: Anion Gap 26.9 (5-19); Potassium 4.9 mmol/L (3.5-5.1)
[2022-10-12 07:17] LABS: Glucose Point of Care 221 mg/dL (70-110)
[2022-10-12] MEDS: sodium chloride 0.9% 1,000 ML 999 ML IV (07:42)
[2022-10-12 07:56] LABS: ABG PH Result 7.41 (7.35-7.45); Alveolar-Arterial Oxygen Gradi 1.6 mmHg (5-10); Arterial Blood Gas Hematocrit 34.9 % (42-52); Blood Gas Allen Test Pos; Blood Gas Operator Identificat CAK; Blood Gas Sample Site Brachial, left; Blood Gas Sample Type Arterial; Carboxyhemoglobin 0.2 %THgb (0.4-20.1); HCO3 ABG 25.8 mmol/L (22-26); HGB O2 Sat 93.9 % (95-100); Ionized Calcium Level - ABG 1.1 mmol/L (1.1-1.4); Methemoglobin 0.8 % (0.4-1.5); Oxygen Device ROOM AIR; Oxygen Saturation ABG 94.9; PO2 ABG 85.3 mmHg (80.0-100.0); Potassium Level - ABG 4.7 mmol/L (3.5-5.0); Total Hemoglobin 11.4 g/dL (14-18)
[2022-10-12 08:01] LABS: Ketone (Acetest) Serum Negative (Negative)
[2022-10-12] MEDS: sodium chloride 0.9% 500 ML 999 ML IV (09:33)
[2022-10-12 09:41] LABS: Blood Urea Nitrogen 65 mg/dL (6-20); Calcium 8.3 mg/dL (8.5-10.5); Carbon Dioxide 21 mmol/L (22-29); Chloride 95 mmol/L (98-107); Glomerular Filtration Rate 8.4 mL/min (90-130); Glucose 238 mg/dL (65-115); Osmolality Calculated 304 mOsm/kg (285-295); Sodium 134 mmol/L (136-145)
== END 2022-10-12 10:49 | disposition home or self-care (01) ==
PROVIDERS: Emergency Provider Family Medicine; PCP Family Medicine
DX: G40.89 Other seizures (principal); E10.649 Type 1 diabetes mellitus with hypoglycemia without coma; E10.22 Type 1 diabetes mellitus with diabetic chronic kidney disease; N18.6 End stage renal disease; Z99.2 Dependence on renal dialysis; Z79.4 Long term (current) use of insulin
CPT/HCPCS: 36415; 36416; 36600; 71045; 80048; 80051; 82009; 82330; 82805; 82962; 85025; 93005; 96360; 96361; 99285; J7030; J7040

== ENCOUNTER 2023-01-15 18:18 | Emergency (ER) | payer MEDICARE, MEDICAID, SELFPAY ==
--- NOTE | 2023-01-15 18:20 | XRR_ITS ---
PROCEDURE INFORMATION: Exam: XR Chest Exam date and time: 01/15/2023 6:28 PM Age: 42 years old Clinical indication: Other: Weakness TECHNIQUE: Imaging protocol: Radiologic exam of the chest. Views: 1 view. COMPARISON: CR XR chest 1V portable [id number] 10/12/2022 6:14 AM FINDINGS: Lungs: Unremarkable. No consolidation. Pleural spaces: Unremarkable. No pleural effusion. No pneumothorax. Heart/Mediastinum: Mild cardiomegaly. Bones/joints: Unremarkable. XR/XR chest 1V portable [id number] IMPRESSION: Redemonstrated mild cardiomegaly. No acute findings.
[2023-01-15 18:26] VITALS: BP 176/105; PULSE 100; RESP 18; TEMP 36.8; O2SAT 93
--- NOTE | 2023-01-15 18:33 | ECG_ITS ---
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 Measurements Intervals [place] Rate: 103 P: 69 MS: 128 QRS: 67 QRSD: 93 T: 70 QT: 360 QTc: 472 Interpretive Statements SINUS TACHYCARDIA POSSIBLE LEFT ATRIAL ENLARGEMENT [-0.1mV P-WAVE IN V1/V2] POSSIBLE LEFT VENTRICULAR HYPERTROPHY [VOLTAGE CRITERIA PLUS LAE OR QRS WIDENING] MODERATE ST DEPRESSION [0.05+ mV ST DEPRESSION] Compared to ECG 10/12/2022 06:32:31 ST (T wave) deviation now present Sinus rhythm no longer present Prolonged QT interval no longer present Electronically Signed On 01-15-2023 22:05:08 CDT by Kristopher Sims M.D. [id number]
--- NOTE | 2023-01-15 18:35 | W.ED.GENADLT ---
HPI - General Adult General: Chief complaint: General Medical Stated complaint: general malaise Time Seen by Provider: 01/15/23 18:19 Source: patient and EMS Mode of arrival: EMS Limitations: no limitations History of Present Illness: 42-year-old male has a history of chronic kidney disease he states that he is on dialysis he is at [facility] today and they pulled one of his dialysis ports. He states that he has had tremors before and asked to use for medication reactions he said especially Reglan states I did give him a med today but he is not sure what it was at all. States on the way home he started having tremors no seizures he states he felt like he bit his tongue but not see any bleeding at this time. They have given him Narcan at the hospital his mother gave him Narcan but he not taken any narcotics and no signs of an overdose. He states that he is feels like he is shaking all over. Associated symptoms: Deny chest pain, dyspnea, headache(s), nausea, rash or vomiting Review of Systems Const: Denies: fever(s), chills, body aches or change in appetite ENMT: Denies: throat pain or dental pain Card: Denies: chest pain Resp: Denies: dyspnea GI: Denies: abdominal pain, nausea, vomiting or diarrhea Musc: Denies: neck pain or back pain Skin/Breast: Denies: rash Neuro: Denies: headache(s) PFSH ED PFSH: Medical History Anemia Depression Diabetes 1.5, managed as type 1 Diabetic peripheral neuropathy DKA, type 1 Surgical History History of cholecystectomy History of jejunostomy History of pyloroplasty Family History Other Chronic kidney disease (CKD) Social History Smoking and tobacco status: never smoked Alcohol intake: former Substance/Drug Use: never Physical Exam Const: COMMON NORMALS: no acute distress, patient oriented x3 and healthy appearing HENMT: COMMON NORMALS: normocephalic and atraumatic HEAD & SCALP: normocephalic and atraumatic Neck/C-Spine: COMMON NORMALS: full ROM and supple Chest: COMMONS NORMALS: normal inspection of the chest and normal palpation of entire chest wall Resp: COMMON NORMALS: normal respiratory effort, No retractions, No use of accessory muscles and clear to auscultation bilaterally AUSCULTATION: clear to auscultation bilaterally Cardio: COMMON NORMALS: regular rate, regular rhythm and No murmurs present (Cardio) RATE: regular rate RHYTHM: regular rhythm GI: COMMON NORMALS: Normal to inspection, nondistended, normoactive bowel sounds present, Soft to palpation, non-tender and no masses PALPATION: Yes Soft to palpation Extremity: COMMON NORMALS: normal to inspection and full ROM Neuro: COMMON NORMALS: patient oriented x3, moves all extremities and no focal motor deficits OTHER: Slight tremor Psych: COMMON NORMALS: mental status grossly normal, Normal thought process present and cooperative THOUGHT PROCESS: Normal thought process present Skin: COMMON NORMALS: no rashes or lesions noted and no wounds GENERAL SKIN EXAM: no rashes or lesions noted Course Vital Signs: Vital signs: Vital Signs Temperature 98.2 F 01/15/23 18:26 Pulse Rate 98 01/15/23 19:34 Respiratory Rate 14 01/15/23 19:34 Blood Pressure 174/92 01/15/23 19:34 Pulse Oximetry 94 01/15/23 19:34 Oxygen Delivery Me thod Room Air 01/15/23 19:34 MDM - General Adult Medical Decision Making Patient presents with a tremor that has since resolved he feels much improved here he does receive dialysis tomorrow he is stable for discharge at this time. Medical Records I reviewed the patient's medical records. Lab Data I reviewed the patient's lab results. 01/15/23 18:36 01/15/23 18:36 Radiology Impressions Chest X-Ray 01/15/23 18:20 IMPRESSION: Redemonstrated mild cardiomegaly. No acute findings. Laboratory Results WBC 10.2 10^3/uL (4.0-10.0) H 01/15/23 18:36 RBC 3.95 10^6/uL (4.1-5.3) L 01/15/23 18:36 Hgb 11.8 g/dL (11.7-16.6) 01/15/23 18:36 Hct 38.1 % (42.0-52.0) L 01/15/23 18:36 MCV 96.5 fl (80-94) H 01/15/23 18:36 MCH 29.9 pg (28.0-34.0) 01/15/23 18:36 MCHC 31.0 g/dL (30.0-36.0) 01/15/23 18:36 RDW 15.5 % (12.1-15.1) H 01/15/23 18:36 Plt Count 284 10^3/cmm (130-400) 01/15/23 18:36 MPV 10.6 fL (7.4-10.4) H 01/15/23 18:36 Neut % (Auto) 87.4 % 01/15/23 18:36 Lymph % (Auto) 4.3 % 01/15/23 18:36 [place] % (Auto) 7.3 % 01/15/23 18:36 Eos % (Auto) 0.1 % 01/15/23 18:36 Baso % (Auto) 0.5 % 01/15/23 18:36 Neut # (Auto) 8.91 10^3/uL (1.8-7.7) H 01/15/23 18:36 Lymph # (Auto) 0.4 10^3/uL (0.8-4.8) L 01/15/23 18:36 [place] # (Auto) 0.7 10^3/uL (0.2-0.9) 01/15/23 18:36 Eos # (Auto) 0.0 10^3/uL (0.0-0.8) 01/15/23 18:36 Baso # (Auto) 0.1 10^3/uL (0.0-0.1) 01/15/23 18:36 Nucleated RBC % (auto) 0 % 01/15/23 18:36 Nucleated RBCs # 0.0 /100WBC 01/15/23 18:36 Sodium 138 mmol/L (136-145) 01/15/23 18:36 Potassium 5.1 mmol/L (3.5-5.1) 01/15/23 18:36 Chloride 93 mmol/L (98-107) L 01/15/23 18:36 Carbon Dioxide 20 mmol/L (22-29) L 01/15/23 18:36 Anion Gap 30.1 (5-19) H 01/15/23 18:36 BUN 67 mg/dL (6-20) H 01/15/23 18:36 Creatinine 7.4 mg/dL (0.7-1.2) H* 01/15/23 18:36 GFR Calculation 8.1 mL/min (90-130) L 01/15/23 18:36 Glucose 276 mg/dL (65-115) H 01/15/23 18:36 Calculated Osmolality 315 mOsm/kg (285-295) H 01/15/23 18:36 Calcium 9.0 mg/dL (8.5-10.5) 01/15/23 18:36 Total Bilirubin 0.6 mg/dL (0.15-1.2) 01/15/23 18:36 AST 26 U/L (0-40) 01/15/23 18:36 ALT 34 U/L (0-41) 01/15/23 18:36 Alkaline Phosphatase 94 U/L (40-130) 01/15/23 18:36 Total Protein 7.3 g/dL (6.6-8.7) 01/15/23 18:36 Albumin 4.3 g/dL (3.5-5.2) 01/15/23 18:36 Globulin 3.0 g/dL (1.3-4.6) 01/15/23 18:36 EKG Data EKG 1: I personally reviewed and interpreted this EKG as follows: EKG interpretation date: 01/15/23 EKG interpretation time: 18:33 Interpretation: sinus tach hf [address] or t wave abnormalities qrs 93 qtc 420 Computer generated interpretation: Chest X-Ray 01/15/23 18:20 IMPRESSION: Redemonstrated mild cardiomegaly. No acute findings. Discharge Plan Discharge Patient Disposition: Home Clinical Impression: CKD (chronic kidney disease), Tremor Condition: Stable Prescriptions: No Action diphenhydramine HCl [Benadryl] 25 mg capsule 25 mg PO TID PRN (Reason: Allergic Reaction) furosemide [Lasix] 40 mg tablet 80 mg PO QAM potassium chloride 20 mEq tablet extended release 20 meq PO TID scopolamine base 1 mg over 3 days patch 3 day 1 patch TRANSDERMA Q3D PRN (Reason: nausea and vomiting) Qty: 10 2RF Patient Comments: I take it sometimes amlodipine 2.5 mg tablet 10 mg PO DAILY 30 Days Qty: 30 3RF Levemir FlexTouch U-100 Insuln 100 unit/mL (3 mL) insulin pen 20 unit SUBCUT DAILY Qty: 15 9RF FreeStyle Alicia 14 Day Sensor Kit See Rx Instructions .ROUTE .COMPLEX Qty: 1 11RF Dose Instruction: USE DIRECTED. Rx Instructions: USE DIRECTED. insulin lispro [Humalog KwikPen Insulin] 100 unit/mL insulin pen 20 unit SUBCUT TID 30 Days Qty: 15 11RF hydrocodone-acetaminophen 5-325 mg tablet 1 tab PO Q6H PRN (Reason: Pain) 30 Days Qty: 120 0RF albuterol sulfate 90 mcg/actuation HFA aerosol inhaler 2 inh inhalation Q8H PRN (Reason: shortness of breath or wheezing) Qty: 8.5 0RF omeprazole 20 mg capsule,delayed release(DR/EC) 20 mg PO BID Discharge Orders: Discharge ED (Routine); Ordered 01/15/23 Ordered By: Pete Enriquez Referrals: Amrit Antoine MD [Primary Care Provider] - 1-3 days Discharge Diet: Advance as tolerated Discharge Activity: Resume usual activity Patient Instructions: Tremors (ED) Coding Level of Care Code ED Casino Dealer for Rafi Zavala
[2023-01-15 18:41] VITALS: BP 180/114; PULSE 103; RESP 18; O2SAT 93
[2023-01-15] MEDS: benztropine 1 mg/mL SDV 2 mL IM (18:45)
[2023-01-15 19:17] LABS: Basophils # 0.1 10^3/uL (0.0-0.1); Basophils % 0.5 %; Eosinophils % 0.1 %; Hematocrit 38.1 % (42.0-52.0); Hemoglobin 11.8 g/dL (11.7-16.6); Lymphocytes # 0.4 10^3/uL (0.8-4.8); Lymphocytes % 4.3 %; Mean Corpuscular Hemoglobin 29.9 pg (28.0-34.0); Mean Corpuscular Volume 96.5 fl (80-94); Mean Platelet Volume 10.6 fL (7.4-10.4); Monocytes # 0.7 10^3/uL (0.2-0.9); Monocytes % 7.3 %; Neutrophils # 8.91 10^3/uL (1.8-7.7); Neutrophils % 87.4 %; Nucleated Red Blood Cells % 0 %; Platelet Count 284 10^3/cmm (130-400); Red Blood Count 3.95 10^6/uL (4.1-5.3); Red Cell Distribution Width 15.5 % (12.1-15.1); White Blood Count 10.2 10^3/uL (4.0-10.0)
[2023-01-15 19:26] LABS: Alanine Aminotransferase 34 U/L (0-41); Albumin Level 4.3 g/dL (3.5-5.2); Alkaline Phosphatase 94 U/L (40-130); Anion Gap 30.1 (5-19); Aspartate Amino Transferase 26 U/L (0-40); Blood Urea Nitrogen 67 mg/dL (6-20); Carbon Dioxide 20 mmol/L (22-29); Chloride 93 mmol/L (98-107); Glomerular Filtration Rate 8.1 mL/min (90-130); Glucose 276 mg/dL (65-115); Osmolality Calculated 315 mOsm/kg (285-295); Potassium 5.1 mmol/L (3.5-5.1); Sodium 138 mmol/L (136-145); Total Bilirubin 0.6 mg/dL (0.15-1.2); Total Protein 7.3 g/dL (6.6-8.7)
[2023-01-15 19:34] VITALS: BP 174/92; PULSE 98; RESP 14; O2SAT 94
[2023-01-15] MEDS: LORazepam 2 mg/mL INJ 1 mL 0.5 MG IVP (19:43)
[2023-01-15 20:45] VITALS: BP 136/76; PULSE 84; RESP 16; O2SAT 91
== END 2023-01-15 20:33 | disposition home or self-care (01) ==
PROVIDERS: Emergency Provider Emergency Medicine; PCP Family Medicine
DX: R25.1 Tremor, unspecified (principal); E13.22 Other specified diabetes mellitus with diabetic chronic kidney disease; N18.9 Chronic kidney disease, unspecified; Z79.4 Long term (current) use of insulin
CPT/HCPCS: 71045; 80053; 85025; 93005; 96372; 96374; 99285; J0515; J2060

== ENCOUNTER → 2023-02-24 10:01 | Outpatient (BNVA) | payer MEDICARE, MEDICAID, SELFPAY | PROVIDERS: PCP Family Medicine; Visit Provider Podiatrist Foot & Ankle Surgery | DX: E11.42 Type 2 diabetes mellitus with diabetic polyneuropathy (principal); L84 Corns and callosities; N18.9 Chronic kidney disease, unspecified; L97.521 Non-pressure chronic ulcer of other part of left foot limited to breakdown of skin; E11.22 Type 2 diabetes mellitus with diabetic chronic kidney disease; E11.621 Type 2 diabetes mellitus with foot ulcer; Z89.411 Acquired absence of right great toe; Z89.421 Acquired absence of other right toe(s); Z79.4 Long term (current) use of insulin | CPT/HCPCS: 11056; 99204 ==

== ENCOUNTER → 2023-03-10 09:20 | Outpatient (BNVA) | payer MEDICARE, MEDICAID, SELFPAY | PROVIDERS: PCP Family Medicine; Visit Provider Podiatrist Foot & Ankle Surgery | DX: E11.621 Type 2 diabetes mellitus with foot ulcer (principal); L84 Corns and callosities; N18.9 Chronic kidney disease, unspecified; E11.42 Type 2 diabetes mellitus with diabetic polyneuropathy; L97.521 Non-pressure chronic ulcer of other part of left foot limited to breakdown of skin; S91.332A Puncture wound without foreign body, left foot, initial encounter; Z89.421 Acquired absence of other right toe(s); W22.8XXA Striking against or struck by other objects, initial encounter; Z79.4 Long term (current) use of insulin | CPT/HCPCS: 99214 ==

== ENCOUNTER → 2023-03-24 09:18 | Outpatient (BNVA) | payer MEDICARE, MEDICAID, SELFPAY | PROVIDERS: PCP Family Medicine; Visit Provider Podiatrist Foot & Ankle Surgery | DX: E11.42 Type 2 diabetes mellitus with diabetic polyneuropathy (principal); E11.621 Type 2 diabetes mellitus with foot ulcer; L97.521 Non-pressure chronic ulcer of other part of left foot limited to breakdown of skin; L97.515 Non-pressure chronic ulcer of other part of right foot with muscle involvement without evidence of necrosis; E11.22 Type 2 diabetes mellitus with diabetic chronic kidney disease; Z89.411 Acquired absence of right great toe; N18.9 Chronic kidney disease, unspecified; Z89.421 Acquired absence of other right toe(s); Z79.4 Long term (current) use of insulin | CPT/HCPCS: 99214 ==

== ENCOUNTER 2023-04-03 18:57 | Emergency (ER) | payer MEDICARE, MEDICAID, SELFPAY ==
[2023-04-03 19:16] VITALS: BMI 19.2
--- NOTE | 2023-04-03 19:22 | W.ED.RECABL ---
HPI - Recheck/Abnormal Lab/Rx General: Chief Complaint: Recheck/Abnormal Lab/Rx Stated Complaint: BACK PAIN Time Seen by Provider: 04/03/23 19:19 Source: patient and family Mode of arrival: EMS Limitations: no limitations History of Present Illness: Patient presents to the emergency department today accompanied by family for complaints of neck pain and new onset vomiting. Patient has chronic kidney disease for which he undergoes dialysis. Patient had dialysis earlier today and indicated no difficulties. Patient called EMS for neck pain but states neck improved after taking a pain pill but, started having vomiting just prior to EMS arrival. Patient denies fever or diarrhea. Patient is a type I diabetic and reports blood sugars have been in the 400s. He also had high blood sugars while at dialysis today. Patient is denying abdominal pains. Chart review shows he has had issues with hypoglycemic seizures in the past. [facility] ED PFSH: Medical History Anemia Depression Diabetic peripheral neuropathy DKA, type 1 Surgical History History of cholecystectomy History of jejunostomy History of pyloroplasty Family History Other Chronic kidney disease (CKD) Social History Smoking and tobacco status: never smoked Alcohol intake: former Substance/Drug Use: never Physical Exam Const: COMMON NORMALS: no acute distress, patient oriented x3 and alert HENMT: COMMON NORMALS: normocephalic, atraumatic, hearing grossly normal bilaterally and moist oral mucous membranes HEAD & SCALP: normocephalic and atraumatic Eye: COMMON NORMALS: Equal, round and reactive pupils present, EOMs intact bilaterally and conjunctivae normal CONJUNCTIVA: Yes conjunctivae normal PUPIL: Yes Equal, round and reactive pupils present Neck/C-Spine: COMMON NORMALS: full ROM and no JVD Lymph: LYMPHATIC: no lymphadenopathy noted Resp: COMMON NORMALS: normal respiratory effort, No retractions, No use of accessory muscles and clear to auscultation bilaterally AUSCULTATION: clear to auscultation bilaterally Cardio: COMMON NORMALS: no JVD, regular rate and regular rhythm RATE: regular rate RHYTHM: regular rhythm GI: OTHER: Normoactive bowel sounds. Nontender on palpation. Soft. : COMMON NORMALS: Yes no CVA tenderness BLADDER/KIDNEY EXAM: Yes no CVA tenderness Back/Pelvis: COMMON NORMALS: no CVA tenderness, no thoracic nor lumbar tenderness and thoraco-lumbar ROM normal Extremity: COMMON NORMALS: normal to inspection, full ROM and capillary refill normal NARRATIVE EXTREMITY EXAM: Full range of motion to the neck independently without difficulty. Neuro: COMMON NORMALS: patient oriented x3 SENSORIUM/ORIENTATION: Yes alert Psych: COMMON NORMALS: mental status grossly normal, Normal thought process present, cooperative, normal affect and activity/motor behavior normal THOUGHT PROCESS: Normal thought process present Skin: COMMON NORMALS: no rashes or lesions noted and no wounds GENERAL SKIN EXAM: no rashes or lesions noted Course Vital Signs: Vital signs: Vital Signs Pulse Rate 84 04/03/23 20:00 Respiratory Rate 18 04/03/23 20:00 Blood Pressure 162/86 04/03/23 20:00 Pulse Oximetry 96 04/03/23 20:00 Oxygen Delivery Me thod Room Air 04/03/23 19:25 MDM - Recheck/Abnormal Lab/Rx Medical Decision Making Per EMS, blood sugars over 400 upon their arrival. Patient did have dialysis but had no issues while he was there. Patient's vital signs are stable here in the emergency department and lab work indicates he is at his normal baseline for the most part. Given that the patient has had chest x-rays in the past concerning for a little bit of fluid accumulation and cardiomegaly we did recheck but, no signs of any pleural effusions though patient still has findings of cardiomegaly. For that reason I did discuss the case with Dr. Moody who recommended treatment for hyperglycemia but to dose at about half of what typical treatment would be. He recommended only a 500 bag of fluids and we discussed 5 units of insulin. While ordering however, patient's minimum is 6 units. 1 hour Accu-Chek showed blood sugars had dropped down into the 300s. I did discuss this with Dr. Moody who indicated at this time, patient would most likely benefit from holding any further insulin. After going through the lab work together, patient appears to be at his typical baseline and, has not been vomiting while here in the ER. I discussed with patient and mother improvement of blood sugars here in the emergency department as well as lab findings. They seemed encouraged and are requesting to discharge home. Discussed access to the emergency department for any change or worsening in patient condition. He is to continue his normal dialysis schedule and chronic medications as prescribed. Patient verbalized understanding and agreement to treatment plan. Differential Diagnosis Unlikely encounter for medication refill (DKA, electrolyte abnormality, dehydration, acute hyperglycemia) Lab Data 04/03/23 19:33 04/03/23 19:33 Radiology Impressions Chest X-Ray 04/03/23 19:35 IMPRESSION: Cardiomegaly with elevated central venous pressure. Lungs clear. Laboratory Results WBC 7.84 10^3/uL (3.29-11.43) 04/03/23 19: RBC 3.04 10^6/uL (3.85-5.65) L 04/03/23 19:33 Hgb 9.60 g/dL (11.27-16.99) L 04/03/23 19:33 Hct 29.4 % (37-53) L 04/03/23 19:33 MCV 96.7 fl (82-101) 04/03/23 19:33 MCH 31.6 pg (27-33) 04/03/23 19:33 MCHC 32.7 g/dL (30-55) 04/03/23 19:33 RDW 15.6 % (12.1-15.1) H 04/03/23 19:33 Plt Count 269 10^3/cmm (157-399) 04/03/23 19:33 MPV 10.6 fL (7.4-10.4) H 04/03/23 19:33 Neut % (Auto) 81.5 % 04/03/23 19: Lymph % (Auto) 8.5 % 04/03/23 19:33 [place] % (Auto) 8.0 % 04/03/23 19:33 Eos % (Auto) 0.9 % 04/03/23 19: Baso % (Auto) 0.8 % 04/03/23 19:33 Neut # (Auto) 6.39 10^3/uL (1.8-7.7) 04/03/23 19:33 Lymph # (Auto) 0.7 10^3/uL (0.8-4.8) L 04/03/23 19:33 [place] # (Auto) 0.6 10^3/uL (0.2-0.9) 04/03/23 19: Eos # (Auto) 0.1 10^3/uL (0.0-0.8) 04/03/23 19: Baso # (Auto) 0.1 10^3/uL (0.0-0.1) 04/03/23 19: Nucleated RBC % (auto) 0 % 04/03/23 19: Nucleated RBCs # 0.0 /100WBC 04/03/23 19: ESR 6 mm/hr (0-10) 04/03/23 19:33 Specimen Type Venous 04/03/23 19: Santosh Test N/a 04/03/23 19: VBG pH 7.37 (7.32-7.42) 04/03/23 19: VBG pCO2 48.1 mmHg (41-51) 04/03/23 19: VBG pO2 59.0 mmHg (25-40) H 04/03/23 19:33 VBG HCO3 27.6 mmol/L (24-28) 04/03/23 19: VBG Base Excess 1.7 mmol/L (-3.0-3.0) 04/03/23 19: VBG Hematocrit 30.8 % (42-52) L 04/03/23 19:33 Plate Grainer Apprentice ID [email or web address] 04/03/23 19:33 Sodium 129 mmol/L (136-145) L 04/03/23 19:33 Potassium 5.3 mmol/L (3.5-5.1) H 04/03/23 19: Chloride 89 mmol/L (98-107) L 04/03/23 19:33 Carbon Dioxide 26 mmol/L (22-29) 04/03/23 19:33 Anion Gap 19.3 (5-19) H 04/03/23 19:33 BUN 48 mg/dL (6-20) H 04/03/23 19:33 Creatinine 5.1 mg/dL (0.7-1.2) H 04/03/23 19:33 GFR Calculation 12.4 mL/min (90-130) L 04/03/23 19:33 Glucose 669 mg/dL (65-115) H* 04/03/23 19:33 POC Glucose 325 mg/dL (70-110) H 04/03/23 21:37 Calculated Osmolality 312 mOsm/kg (285-295) H 04/03/23 19:33 Lactic Acid 3.0 mmol/L (0.5-2.2) H 04/03/23 19:33 Calcium 8.4 mg/dL (8.5-10.5) L 04/03/23 19:33 Total Bilirubin 0.7 mg/dL (0.15-1.2) 04/03/23 19:33 AST 53 U/L (0-40) H 04/03/23 19:33 ALT 68 U/L (0-41) H 04/03/23 19:33 Alkaline Phosphatase 114 U/L (40-130) 04/03/23 19:33 C-Reactive Protein 3.0 mg/L (0.0-4.9) 04/03/23 19:33 Total Protein 6.9 g/dL (6.6-8.7) 04/03/23 19:33 Albumin 3.9 g/dL (3.5-5.2) 04/03/23 19:33 Globulin 3.0 g/dL (1.3-4.6) 04/03/23 19:33 Lipase 81 U/L (13-60) H 04/03/23 19:33 Procalcitonin 0.38 ng/mL (0-0.5) 04/03/23 19:33 Serum Ketones Negative (Negative) 04/03/23 19:33 Discharge Plan Discharge Patient Disposition: Home Clinical Impression: Hyperglycemia, Vomiting, Back pain, CKD (chronic kidney disease) Condition: Stable Prescriptions: No Action diphenhydramine HCl [Benadryl] 25 mg capsule 25 mg PO TID PRN (Reason: Allergic Reaction) furosemide [Lasix] 40 mg tablet 80 mg PO QAM potassium chloride 20 mEq tablet extended release 20 meq PO TID mupirocin 2 % ointment 1 applic topical BID PRN (Reason: left foot heel puncture) 14 Days Qty: 22 1RF doxycycline hyclate 100 mg capsule 100 mg PO BID 7 Days Qty: 14 0RF (DME) Diabetic shoes with 3 Inserts See Rx Instructions .Route .MEDSUPPLY Qty: 1 0RF Rx Instructions: As directed amlodipine 2.5 mg tablet 10 mg PO DAILY 30 Days Qty: 30 3RF Levemir FlexTouch U-100 Insuln 100 unit/mL (3 mL) insulin pen 20 unit SUBCUT DAILY Qty: 15 9RF FreeStyle Alicia 14 Day Sensor Kit See Rx Instructions .ROUTE .COMPLEX Qty: 1 11RF Dose Instruction: USE DIRECTED. Rx Instructions: USE DIRECTED. insulin lispro [Humalog KwikPen Insulin] 100 unit/mL insulin pen 20 unit SUBCUT TID 30 Days Qty: 15 11RF hydrocodone-acetaminophen 5-325 mg tablet 1 tab PO Q6H PRN (Reason: Pain) 30 Days Qty: 120 0RF scopolamine base 1 mg over 3 days patch 3 day 1 patch TRANSDERMA Q3D PRN (Reason: nausea and vomiting) Qty: 10 3RF Patient Comments: I take it sometimes albuterol sulfate 90 mcg/actuation HFA aerosol inhaler 2 inh inhalation Q8H PRN (Reason: shortness of breath or wheezing) Qty: 8.5 0RF omeprazole 20 mg capsule,delayed release(DR/EC) 20 mg PO BID Discharge Orders: Discharge ED (Routine); Ordered 04/03/23 Ordered By: Lashell Becker Referrals: Amirt Antoine MD [Primary Care Provider] - Discharge Diet: Diabetic Discharge Activity: Increase activity as tolerated Activity Restrictions/Additional Instructions: Examination today revealed blood sugar levels over 660. We did treat you with insulin here in the emergency department as well as fluids and were able to bring your blood sugar down into the 300s. At this time, the emergency room physician here requested no further insulin intervention as we do not want to cause any significant decrease in your blood sugar readings which could potentially cause hypoglycemia and other complications. In general, your lab work is at its typical baseline without any acute changes or concerns today. You may continue your normal dialysis rotation and continue taking your chronic medications as prescribed. We recommend a follow-up appoint with your primary care doctor at the beginning of the week or, returning to the emergency department for any acute worsening. Coding Level of Care Code ED Wastewater Analyst Lab Analyst for Rafi Zavala
[2023-04-03 19:25] VITALS: BP 171/88; PULSE 86; RESP 18; O2SAT 95
[2023-04-03] MEDS: ondansetron 2 mg/ML SDV 2 mL 4 MG IVP (19:29)
--- NOTE | 2023-04-03 19:35 | XRR_ITS ---
PROCEDURE INFORMATION: Exam: XR Chest Exam date and time: 04/03/2023 7:50 PM Age: 42 years old Clinical indication: Injury or trauma; Other: N/v, heart size, fluid burden eval? TECHNIQUE: Imaging protocol: Radiologic exam of the chest. Views: 1 view. COMPARISON: CR XR chest 1V portable [id number] 01/15/2023 6:28 PM FINDINGS: Lungs: No infiltrates or overt CHF. Pleural spaces: Unremarkable. No pleural effusion. No pneumothorax. Heart/Mediastinum: Heart appears at least mildly enlarged on this portable chest exam. There is pulmonary vascular distribution indicating elevated central venous pressure. Bones/joints: Unremarkable for age. XR/XR chest 1V [id number] IMPRESSION: Cardiomegaly with elevated central venous pressure. Lungs clear.
[2023-04-03 19:44] LABS: Basophils # 0.1 10^3/uL (0.0-0.1); Basophils % 0.8 %; Eosinophils # 0.1 10^3/uL (0.0-0.8); Eosinophils % 0.9 %; Hematocrit 29.4 % (37-53); Lymphocytes # 0.7 10^3/uL (0.8-4.8); Lymphocytes % 8.5 %; Mean Corpuscular HGB Conc 32.7 g/dL (30-55); Mean Corpuscular Hemoglobin 31.6 pg (27-33); Mean Corpuscular Volume 96.7 fl (82-101); Mean Platelet Volume 10.6 fL (7.4-10.4); Monocytes # 0.6 10^3/uL (0.2-0.9); Neutrophils # 6.39 10^3/uL (1.8-7.7); Neutrophils % 81.5 %; Nucleated Red Blood Cells % 0 %; Platelet Count 269 10^3/cmm (157-399); Red Blood Count 3.04 10^6/uL (3.85-5.65); Red Cell Distribution Width 15.6 % (12.1-15.1); White Blood Count 7.84 10^3/uL (3.29-11.43)
[2023-04-03 19:51] LABS: Base Excess VBG 1.7 mmol/L (-3.0-3.0); Blood Gas Sample Type Venous; Erythrocyte Sedimentation Rate 6 mm/hr (0-10); HCO3 VBG 27.6 mmol/L (24-28); Ketone (Acetest) Serum Negative (Negative); PCO2 VBG 48.1 mmHg (41-51); Venous Blood Gas Hematocrit 30.8 % (42-52); pH VBG 7.37 (7.32-7.42)
[2023-04-03 20:00] VITALS: BP 162/86; PULSE 84; RESP 18; O2SAT 96
[2023-04-03 20:25] LABS: Albumin Level 3.9 g/dL (3.5-5.2); Alkaline Phosphatase 114 U/L (40-130); Carbon Dioxide 26 mmol/L (22-29); Total Bilirubin 0.7 mg/dL (0.15-1.2); Total Protein 6.9 g/dL (6.6-8.7)
[2023-04-03 20:31] LABS: Procalcitonin 0.38 ng/mL (0-0.5)
[2023-04-03] MEDS: insulin regular-human 100 units/1 mL 6 UNIT IVP (20:35)
[2023-04-03] MEDS: sodium chloride 0.9% 500 ML IV (20:35)
[2023-04-03 21:02] LABS: Anion Gap 19.3 (5-19); Blood Urea Nitrogen 48 mg/dL (6-20); Chloride 89 mmol/L (98-107); Glomerular Filtration Rate 12.4 mL/min (90-130); Potassium 5.3 mmol/L (3.5-5.1); Sodium 129 mmol/L (136-145)
[2023-04-03 21:03] LABS: Alanine Aminotransferase 68 U/L (0-41); Aspartate Amino Transferase 53 U/L (0-40); Calcium 8.4 mg/dL (8.5-10.5); Lipase 81 U/L (13-60); Osmolality Calculated 312 mOsm/kg (285-295)
[2023-04-03 21:05] LABS: Glucose 669 mg/dL (65-115)
[2023-04-03 21:25] LABS: Reflex Lactate Order REFLEX LACTIC ORDERD
[2023-04-03 21:40] LABS: Glucose Point of Care 325 mg/dL (70-110)
[2023-04-04 00:07] VITALS: BP 159/88; PULSE 80; RESP 16; O2SAT 97
[2023-04-08 11:18] LABS: Blood Gas Sample Site VENOUS
[2023-04-09 04:50] LABS: Beta-Hydroxybutyrate 0.26 mmol/L
== END 2023-04-03 22:34 | disposition home or self-care (01) ==
PROVIDERS: Emergency Provider Physician Assistant; PCP Family Medicine
DX: M54.9 Dorsalgia, unspecified (principal); R11.11 Vomiting without nausea; Z79.4 Long term (current) use of insulin; E10.22 Type 1 diabetes mellitus with diabetic chronic kidney disease; N18.9 Chronic kidney disease, unspecified; E10.65 Type 1 diabetes mellitus with hyperglycemia
CPT/HCPCS: 36415; 36416; 71045; 80053; 82009; 82010; 82803; 82962; 83605; 83690; 84145; 85025; 85651; 86140; 96361; 96374; 96375; 99284; J1815; J2405; J7040

== ENCOUNTER → 2023-04-14 13:24 | Outpatient (BNVA) | payer MEDICARE, MEDICAID, SELFPAY | PROVIDERS: PCP Family Medicine; Visit Provider Podiatrist Foot & Ankle Surgery | DX: N18.9 Chronic kidney disease, unspecified (principal); E11.42 Type 2 diabetes mellitus with diabetic polyneuropathy; E11.22 Type 2 diabetes mellitus with diabetic chronic kidney disease; Z89.421 Acquired absence of other right toe(s); Z89.411 Acquired absence of right great toe; Z79.4 Long term (current) use of insulin | CPT/HCPCS: 99213 ==

== ENCOUNTER 2023-04-27 03:27 | Emergency (ER) | payer MEDICARE, MEDICAID, SELFPAY ==
[2023-04-27 03:28] VITALS: BP 164/94; PULSE 76; RESP 18; TEMP 36.4; O2SAT 99; BMI 22.4
[2023-04-27 03:35] LABS: Glucose Point of Care 67 mg/dL (70-110)
[2023-04-27 04:21] LABS: Glucose Point of Care 118 mg/dL (70-110)
--- NOTE | 2023-04-27 04:22 | ED_ITS ---
HPI - General Adult General: Chief complaint: General Medical Stated complaint: hypoglycemia Time Seen by Provider: 04/27/23 03:28 History of Present Illness: Patient presents to the ER by EMS for hypoglycemia. Patient blood sugar was 30 upon EMS arrival. They administered 1 mg of glucagon IM and when he got to the ER his sugar was 67. Patient was alert oriented and coherent talking and he was given orange juice with extra sugar added to drink. Patient states he is an insulin-dependent diabetic who does dialysis he just has not been eating right and sugar has been all over the place. Review of Systems General: Reports: 10 or more systems reviewed and unremarkable except in HPI and below PFS ED PFSH: Medical History Anemia Depression Diabetic peripheral neuropathy DKA, type 1 Surgical History History of cholecystectomy History of jejunostomy History of pyloroplasty Family History Other Chronic kidney disease (CKD) Social History Smoking and tobacco status: never smoked Alcohol intake: former Substance/Drug Use: never Physical Exam Const: COMMON NORMALS: no acute distress, average body habitus, patient oriented x3, no limitations, healthy appearing, alert and well nourished HENMT: COMMON NORMALS: normocephalic, atraumatic, hearing grossly normal bilaterally, external ears normal, Normal external nose present and moist oral mucous membranes HEAD & SCALP: normocephalic and atraumatic NOSE: Normal external nose present EXTERNAL EAR: Yes external ears normal Neck/C-Spine: COMMON NORMALS: no JVD Chest: COMMONS NORMALS: normal inspection of the chest and normal palpation of entire chest wall Resp: COMMON NORMALS: normal respiratory effort, No retractions, No use of accessory muscles and clear to auscultation bilaterally AUSCULTATION: clear to auscultation bilaterally Cardio: COMMON NORMALS: no JVD, regular rate, regular rhythm, S1 normal heart sound present, S2 normal heart sound present, No gallops present (Cardio), No clicks present (Cardio), No murmurs present (Cardio) and No rub (Cardio) RATE: regular rate RHYTHM: regular rhythm HEART SOUNDS: S1 normal heart sound present and S2 normal heart sound present GI: COMMON NORMALS: Normal to inspection, nondistended, normoactive bowel sounds present, Soft to palpation, non-tender, No hepatosplenomegaly present and no masses PALPATION: Yes Soft to palpation and Yes No hepatosplenomegaly present : COMMON NORMALS: Yes no CVA tenderness BLADDER/KIDNEY EXAM: Yes no CVA tenderness Back/Pelvis: COMMON NORMALS: no CVA tenderness Neuro: COMMON NORMALS: patient oriented x3 SENSORIUM/ORIENTATION: Yes alert Course Vital Signs: Vital signs: Vital Signs Temperature 97.5 F L 04/27/23 03:28 Pulse Rate 76 04/27/23 03:28 Respiratory Rate 18 04/27/23 03:28 Blood Pressure 164/94 04/27/23 03:28 Pulse Oximetry 99 04/27/23 03:28 Oxygen Delivery Me thod Room Air 04/27/23 03:28 MDM - General Adult Medical Decision Making Patient arrived to the ER with hypoglycemia after EMS gave him 1 a milligram of glucagon. His sugar rise from approximately 30 to approximately 70. We gave the patient some orange juice with some sugar added on and his first blood sugar was approximately 117 and his second blood sugar was in the 150s. Patient be discharged home Differential Diagnosis Hypoglycemia, insulin use, diabetes, poor intake, Lab Data I reviewed the patient's lab results. Laboratory Results POC Glucose 118 mg/dL (70-110) H 04/27/23 04:16 No radiology studies performed this visit Discharge Plan Discharge Patient Disposition: Home Clinical Impression: Hypoglycemia due to insulin Condition: Stable Prescriptions: No Action diphenhydramine HCl [Benadryl] 25 mg capsule 25 mg PO TID PRN (Reason: Allergic Reaction) furosemide [Lasix] 40 mg tablet 80 mg PO QAM potassium chloride 20 mEq tablet extended release 20 meq PO TID mupirocin 2 % ointment 1 applic topical BID PRN (Reason: left foot heel puncture) 14 Days Qty: 22 1RF doxycycline hyclate 100 mg capsule 100 mg PO BID 7 Days Qty: 14 0RF (DME) Diabetic shoes with 3 Inserts See Rx Instructions .Route .MEDSUPPLY Qty: 1 0RF Rx Instructions: As directed amlodipine 2.5 mg tablet 10 mg PO DAILY 30 Days Qty: 30 3RF Levemir FlexTouch U100 Insulin 100 unit/mL (3 mL) insulin pen 20 unit SUBCUT DAILY Qty: 15 9RF FreeStyle Alicia 14 Day Sensor Kit See Rx Instructions .ROUTE .COMPLEX Qty: 1 11RF Dose Instruction: USE DIRECTED. Rx Instructions: USE DIRECTED. insulin lispro [Humalog KwikPen Insulin] 100 unit/mL insulin pen 20 unit SUBCUT TID 30 Days Qty: 15 11RF hydrocodone-acetaminophen 5-325 mg tablet 1 tab PO Q6H PRN (Reason: Pain) 30 Days Qty: 120 0RF scopolamine base 1 mg over 3 days patch 3 day 1 patch TRANSDERMA Q3D PRN (Reason: nausea and vomiting) Qty: 10 3RF Patient Comments: I take it sometimes albuterol sulfate 90 mcg/actuation HFA aerosol inhaler 2 inh inhalation Q8H PRN (Reason: shortness of breath or wheezing) Qty: 8.5 0RF omeprazole 20 mg capsule,delayed release(DR/EC) 20 mg PO BID Discharge Orders: Discharge ED (Routine); Ordered 04/27/23 Ordered By: Lucio Gandhi Referrals: Amrit Antoine MD [Primary Care Provider] - 1 week Patient Instructions: Hypoglycemia in a Person with Diabetes (DC) Activity Restrictions/Additional Instructions: Please continue to monitor your sugars. Please follow-up with your family practice doctor in the next 7 days or sooner as needed for further evaluation and treatment. Coding Level of Care Code ED Deputy Chief Counsel for Rafi Zavala
[2023-04-27 04:53] LABS: Glucose Point of Care 157 mg/dL (70-110)
[2023-04-27 05:13] VITALS: BP 147/89; PULSE 71; RESP 18; O2SAT 96
== END 2023-04-27 05:34 | disposition home or self-care (01) ==
PROVIDERS: Emergency Provider Emergency Medicine; PCP Family Medicine
DX: E10.649 Type 1 diabetes mellitus with hypoglycemia without coma (principal); Z79.4 Long term (current) use of insulin
CPT/HCPCS: 36416; 82962; 99283

== ENCOUNTER → 2023-05-26 13:28 | Outpatient (BNVA) | payer MEDICARE, MEDICAID, SELFPAY | PROVIDERS: PCP Family Medicine; Visit Provider Podiatrist Foot & Ankle Surgery | DX: N18.9 Chronic kidney disease, unspecified (principal); E11.42 Type 2 diabetes mellitus with diabetic polyneuropathy; Z89.429 Acquired absence of other toe(s), unspecified side; L97.511 Non-pressure chronic ulcer of other part of right foot limited to breakdown of skin; L97.521 Non-pressure chronic ulcer of other part of left foot limited to breakdown of skin; E11.621 Type 2 diabetes mellitus with foot ulcer; E11.22 Type 2 diabetes mellitus with diabetic chronic kidney disease; Z89.411 Acquired absence of right great toe; Z89.421 Acquired absence of other right toe(s); Z79.4 Long term (current) use of insulin | CPT/HCPCS: 99213 ==

== ENCOUNTER → 2023-06-09 13:38 | Outpatient (BNVA) | payer MEDICARE, MEDICAID, SELFPAY | PROVIDERS: PCP Family Medicine; Visit Provider Podiatrist Foot & Ankle Surgery | DX: N18.9 Chronic kidney disease, unspecified (principal); E11.42 Type 2 diabetes mellitus with diabetic polyneuropathy; L97.511 Non-pressure chronic ulcer of other part of right foot limited to breakdown of skin; L97.521 Non-pressure chronic ulcer of other part of left foot limited to breakdown of skin; Z89.411 Acquired absence of right great toe; Z89.421 Acquired absence of other right toe(s); E11.621 Type 2 diabetes mellitus with foot ulcer; Z79.4 Long term (current) use of insulin | CPT/HCPCS: 99213 ==

== ENCOUNTER → 2023-07-07 09:13 | Outpatient (BNVA) | payer MEDICARE, MEDICAID, SELFPAY | PROVIDERS: PCP Family Medicine; Visit Provider Podiatrist Foot & Ankle Surgery | DX: N18.9 Chronic kidney disease, unspecified (principal); E11.42 Type 2 diabetes mellitus with diabetic polyneuropathy; Z89.429 Acquired absence of other toe(s), unspecified side; L97.511 Non-pressure chronic ulcer of other part of right foot limited to breakdown of skin; L97.521 Non-pressure chronic ulcer of other part of left foot limited to breakdown of skin; E11.621 Type 2 diabetes mellitus with foot ulcer; E11.22 Type 2 diabetes mellitus with diabetic chronic kidney disease; Z89.421 Acquired absence of other right toe(s); Z89.411 Acquired absence of right great toe; Z79.4 Long term (current) use of insulin | CPT/HCPCS: 99213 ==

== ENCOUNTER → 2023-07-28 07:34 | Outpatient (BNVA) | payer MEDICARE, MEDICAID, SELFPAY | PROVIDERS: PCP Family Medicine; Visit Provider Podiatrist Foot & Ankle Surgery | DX: E11.621 Type 2 diabetes mellitus with foot ulcer (principal); Z51.89 Encounter for other specified aftercare; N18.9 Chronic kidney disease, unspecified; L97.511 Non-pressure chronic ulcer of other part of right foot limited to breakdown of skin; L97.521 Non-pressure chronic ulcer of other part of left foot limited to breakdown of skin; E11.42 Type 2 diabetes mellitus with diabetic polyneuropathy; Z89.421 Acquired absence of other right toe(s); Z79.4 Long term (current) use of insulin | CPT/HCPCS: 99213 ==

== ENCOUNTER → 2023-09-01 07:11 | Outpatient (BNVA) | payer MEDICARE, MEDICAID, SELFPAY | PROVIDERS: PCP Family Medicine; Visit Provider Podiatrist Foot & Ankle Surgery | DX: L97.511 Non-pressure chronic ulcer of other part of right foot limited to breakdown of skin (principal); L97.521 Non-pressure chronic ulcer of other part of left foot limited to breakdown of skin; L97.522 Non-pressure chronic ulcer of other part of left foot with fat layer exposed; E11.42 Type 2 diabetes mellitus with diabetic polyneuropathy; E11.621 Type 2 diabetes mellitus with foot ulcer; Z89.421 Acquired absence of other right toe(s); Z89.411 Acquired absence of right great toe; Z79.4 Long term (current) use of insulin | CPT/HCPCS: 99213 ==

== ENCOUNTER → 2023-09-22 14:50 | Outpatient (BNVA) | payer MEDICARE, MEDICAID, SELFPAY | PROVIDERS: PCP Family Medicine; Visit Provider Podiatrist Foot & Ankle Surgery | DX: L97.511 Non-pressure chronic ulcer of other part of right foot limited to breakdown of skin (principal); L97.521 Non-pressure chronic ulcer of other part of left foot limited to breakdown of skin; E11.42 Type 2 diabetes mellitus with diabetic polyneuropathy; N18.9 Chronic kidney disease, unspecified; E11.621 Type 2 diabetes mellitus with foot ulcer; Z89.421 Acquired absence of other right toe(s); Z89.411 Acquired absence of right great toe; E11.29 Type 2 diabetes mellitus with other diabetic kidney complication; Z79.4 Long term (current) use of insulin | CPT/HCPCS: 99213 ==

== ENCOUNTER → 2023-10-06 06:15 | Outpatient (BNVA) | payer MEDICARE, MEDICAID, SELFPAY | PROVIDERS: PCP Family Medicine; Visit Provider Podiatrist Foot & Ankle Surgery | DX: L60.0 Ingrowing nail (principal); Z89.421 Acquired absence of other right toe(s); E11.42 Type 2 diabetes mellitus with diabetic polyneuropathy; N18.9 Chronic kidney disease, unspecified; Z79.4 Long term (current) use of insulin | CPT/HCPCS: 11750 ==

== ENCOUNTER → 2023-11-08 08:19 | Outpatient (BNVA) | payer MEDICARE, MEDICAID, SELFPAY | PROVIDERS: PCP Family Medicine; Visit Provider Podiatrist Foot & Ankle Surgery | DX: E11.42 Type 2 diabetes mellitus with diabetic polyneuropathy; N18.9 Chronic kidney disease, unspecified; L97.522 Non-pressure chronic ulcer of other part of left foot with fat layer exposed; E11.621 Type 2 diabetes mellitus with foot ulcer; Z79.4 Long term (current) use of insulin; Z89.421 Acquired absence of other right toe(s); Z89.411 Acquired absence of right great toe | CPT/HCPCS: 99213 ==

== ENCOUNTER → 2023-12-01 10:18 | Outpatient (BNVA) | payer MEDICARE, MEDICAID, SELFPAY | PROVIDERS: PCP Family Medicine; Visit Provider Podiatrist Foot & Ankle Surgery | DX: E11.621 Type 2 diabetes mellitus with foot ulcer; L97.522 Non-pressure chronic ulcer of other part of left foot with fat layer exposed; E11.42 Type 2 diabetes mellitus with diabetic polyneuropathy; N18.6 End stage renal disease; Z99.2 Dependence on renal dialysis; Z89.421 Acquired absence of other right toe(s); Z89.411 Acquired absence of right great toe; Z79.4 Long term (current) use of insulin | CPT/HCPCS: 99213 ==

== ENCOUNTER → 2023-12-08 08:22 | Outpatient (BNVA) | payer MEDICARE, MEDICAID, SELFPAY | PROVIDERS: PCP Family Medicine; Visit Provider Podiatrist Foot & Ankle Surgery | DX: E11.42 Type 2 diabetes mellitus with diabetic polyneuropathy; N18.6 End stage renal disease; Z99.2 Dependence on renal dialysis; L97.522 Non-pressure chronic ulcer of other part of left foot with fat layer exposed; E11.621 Type 2 diabetes mellitus with foot ulcer; Z89.411 Acquired absence of right great toe; Z89.421 Acquired absence of other right toe(s); Z79.4 Long term (current) use of insulin | CPT/HCPCS: 99213 ==

== ENCOUNTER → 2023-12-20 06:41 | Outpatient (BNVA) | payer MEDICARE, MEDICAID, SELFPAY | PROVIDERS: PCP Family Medicine; Visit Provider Podiatrist Foot & Ankle Surgery | DX: E11.42 Type 2 diabetes mellitus with diabetic polyneuropathy; N18.6 End stage renal disease; Z99.2 Dependence on renal dialysis; L97.522 Non-pressure chronic ulcer of other part of left foot with fat layer exposed; E11.621 Type 2 diabetes mellitus with foot ulcer; Z89.421 Acquired absence of other right toe(s); Z89.411 Acquired absence of right great toe; Z79.4 Long term (current) use of insulin | CPT/HCPCS: 99213 ==

== ENCOUNTER → 2024-01-10 06:51 | Outpatient (BNVA) | payer MEDICARE, MEDICAID, SELFPAY | PROVIDERS: PCP Family Medicine; Visit Provider Podiatrist Foot & Ankle Surgery | DX: E11.42 Type 2 diabetes mellitus with diabetic polyneuropathy; N18.6 End stage renal disease; Z99.2 Dependence on renal dialysis; L97.522 Non-pressure chronic ulcer of other part of left foot with fat layer exposed; L97.511 Non-pressure chronic ulcer of other part of right foot limited to breakdown of skin; Z89.421 Acquired absence of other right toe(s); Z89.411 Acquired absence of right great toe; E11.621 Type 2 diabetes mellitus with foot ulcer; Z79.4 Long term (current) use of insulin | CPT/HCPCS: 99213 ==

== ENCOUNTER → 2024-01-24 07:11 | Outpatient (BNVA) | payer MEDICARE, MEDICAID, SELFPAY | PROVIDERS: PCP Family Medicine; Visit Provider Podiatrist Foot & Ankle Surgery | DX: E11.42 Type 2 diabetes mellitus with diabetic polyneuropathy; N18.6 End stage renal disease; Z99.2 Dependence on renal dialysis; E11.621 Type 2 diabetes mellitus with foot ulcer; L97.522 Non-pressure chronic ulcer of other part of left foot with fat layer exposed; L97.511 Non-pressure chronic ulcer of other part of right foot limited to breakdown of skin; Z89.411 Acquired absence of right great toe; Z89.421 Acquired absence of other right toe(s); Z79.4 Long term (current) use of insulin | CPT/HCPCS: 99213 ==

== ENCOUNTER → 2024-02-16 07:30 | Outpatient (BNVA) | payer MEDICARE, MEDICAID, SELFPAY | PROVIDERS: PCP Family Medicine; Visit Provider Podiatrist Foot & Ankle Surgery | DX: E11.621 Type 2 diabetes mellitus with foot ulcer; E11.42 Type 2 diabetes mellitus with diabetic polyneuropathy; N18.6 End stage renal disease; Z99.2 Dependence on renal dialysis; L97.522 Non-pressure chronic ulcer of other part of left foot with fat layer exposed; L97.511 Non-pressure chronic ulcer of other part of right foot limited to breakdown of skin; Z79.4 Long term (current) use of insulin; Z89.421 Acquired absence of other right toe(s); Z89.411 Acquired absence of right great toe | CPT/HCPCS: 99213 ==

== ENCOUNTER → 2024-03-08 07:24 | Outpatient (BNVA) | payer MEDICARE, MEDICAID, SELFPAY | PROVIDERS: PCP Family Medicine; Visit Provider Podiatrist Foot & Ankle Surgery | DX: E11.42 Type 2 diabetes mellitus with diabetic polyneuropathy (principal); E11.22 Type 2 diabetes mellitus with diabetic chronic kidney disease; N18.6 End stage renal disease; Z99.2 Dependence on renal dialysis; L97.522 Non-pressure chronic ulcer of other part of left foot with fat layer exposed; L97.511 Non-pressure chronic ulcer of other part of right foot limited to breakdown of skin; M20.41 Other hammer toe(s) (acquired), right foot; M20.42 Other hammer toe(s) (acquired), left foot; Z79.4 Long term (current) use of insulin | CPT/HCPCS: 99213 ==

== ENCOUNTER 2024-04-25 13:05 | Outpatient (CLI) | payer MEDICARE, MEDICAID, SELFPAY ==
[2024-04-25 13:42] LABS: Basophils # 0.1 10^3/uL (0.0-0.1); Basophils % 0.9 %; Eosinophils # 0.2 10^3/uL (0.0-0.8); Eosinophils % 2.7 %; Lymphocytes # 1.4 10^3/uL (0.8-4.8); Lymphocytes % 18.4 %; Mean Corpuscular HGB Conc 32.6 g/dL (30-55); Mean Corpuscular Hemoglobin 31.9 pg (27-33); Mean Corpuscular Volume 97.7 fl (82-101); Mean Platelet Volume 9.4 fL (7.4-10.4); Monocytes # 0.6 10^3/uL (0.2-0.9); Monocytes % 7.7 %; Neutrophils # 5.36 10^3/uL (1.8-7.7); Neutrophils % 69.9 %; Nucleated Red Blood Cells % 0 %; Platelet Count 337 10^3/cmm (157-399); Red Blood Count 3.48 10^6/uL (3.85-5.65); Red Cell Distribution Width 14.3 % (12.1-15.1); White Blood Count 7.67 10^3/uL (3.29-11.43)
[2024-04-25 13:59] LABS: INR 0.86 (0.8-1.2)
[2024-04-25 14:03] LABS: Alanine Aminotransferase 52 U/L (0-41); Albumin Level 4.2 g/dL (3.5-5.2); Alkaline Phosphatase 153 U/L (40-130); Aspartate Amino Transferase 35 U/L (0-40); Blood Urea Nitrogen 23 mg/dL (6-20); Calcium 9.2 mg/dL (8.5-10.5); Carbon Dioxide 28 mmol/L (22-29); Chloride 93 mmol/L (98-107); Globulin 3.4 g/dL (1.3-4.6); Glomerular Filtration Rate 17.3 mL/min (90-130); Glucose 257 mg/dL (65-115); Osmolality Calculated 290 mOsm/kg (285-295); Sodium 134 mmol/L (136-145); Total Bilirubin 0.5 mg/dL (0.15-1.2); Total Protein 7.6 g/dL (6.6-8.7)
[2024-04-25 14:16] LABS: Hepatitis A Antibody IgM Non-Reactive (Nonreactive)
[2024-04-26 09:23] LABS: Hepatitis A Antibody Total NON-REACTIVE (NON-REACTIVE)
== END 2024-04-25 13:06 | disposition home or self-care (01) ==
LOC: LAB 13:05
PROVIDERS: PCP Family Medicine; Visit Provider Internal Medicine
DX: B19.20 Unspecified viral hepatitis C without hepatic coma (principal)
CPT/HCPCS: 36415; 80053; 85025; 85610; 86708; 86709; 87902

== ENCOUNTER → 2024-05-15 08:27 | Outpatient (BNVA) | payer MEDICARE, MEDICAID, SELFPAY | PROVIDERS: PCP Family Medicine; Visit Provider Podiatrist Foot & Ankle Surgery | DX: E11.42 Type 2 diabetes mellitus with diabetic polyneuropathy; N18.6 End stage renal disease; Z99.2 Dependence on renal dialysis; L97.522 Non-pressure chronic ulcer of other part of left foot with fat layer exposed; L97.511 Non-pressure chronic ulcer of other part of right foot limited to breakdown of skin; Z89.421 Acquired absence of other right toe(s); Z89.411 Acquired absence of right great toe; E11.621 Type 2 diabetes mellitus with foot ulcer; Z79.4 Long term (current) use of insulin | CPT/HCPCS: 99213 ==

== ENCOUNTER 2024-05-16 10:07 | Observation (INO) | payer MEDICARE, MEDICAID, SELFPAY ==
[2024-05-16] VITALS (17 sets, daily range): BP systolic 141–181; BP diastolic 71–100; PULSE 78–108; RESP 15–20; TEMP 36.5–37; O2SAT 91–98; BMI 21.4
--- NOTE | 2024-05-16 10:43 | ECG_ITS ---
[facility] Test Date: 2024-05-16 Pat Name: Fabián Ortiz Department: Room: Gender: Male Oracle Application Architect: : [id number] Requested By: Aditi Burns Order Number: [id number] Reading MD: MONSERRAT HOLLEY Measurements Intervals [place] Rate: 111 P: 60 AL: 124 QRS: 40 QRSD: 112 T: 27 QT: 336 QTc: 457 Interpretive Statements SINUS TACHYCARDIA POSSIBLE LEFT VENTRICULAR HYPERTROPHY [VOLTAGE CRITERIA PLUS LAE OR QRS WIDENING] TYPE 3 BRUGADA PATTERN (NON-DIAGNOSTIC) [COVED/SADDLEBACK ST ELEVATION > 0.1mV IN 2 OF V1-3] Compared to ECG 01/15/2023 18:33:25 No significant changes Electronically Signed On 05-17-2024 20:13:59 CDT by MONSERRAT HOLLEY [email or web address]
--- NOTE | 2024-05-16 10:47 | XRR_ITS ---
PROCEDURE INFORMATION: Exam: XR Chest Exam date and time: 05/16/2024 12:56 PM Age: 43 years old Clinical indication: Pain; Angina pectoris; Prior surgery; Surgery date: 6+ months; Surgery type: Dialysis cath; Patient HX: High blood sugar; Additional info: Chest pain TECHNIQUE: Imaging protocol: Radiologic exam of the chest. Views: 1 view. COMPARISON: CR XR chest 1V [id number] 04/03/2023 7:50 PM FINDINGS: Lungs: New 4 cm soft tissue mass projecting in the mid right lung over the superior right pulmonary hilum. Otherwise, unremarkable. Pleural spaces: Unremarkable. No pleural effusion. No pneumothorax. Heart/Mediastinum: Unremarkable. No cardiomegaly. Bones/joints: Unchanged mild scoliosis. Otherwise, unremarkable. XR/XR chest 1V portable [id number] IMPRESSION: New 4 cm soft tissue mass in the right mid lung projecting over the superior right pulmonary hilum. This should be further evaluated with CT of the chest.
--- NOTE | 2024-05-16 10:49 | ED_ITS ---
Documented by User: ROGER Frey 05/16/24 13:49 HPI - General Adult 2 General: Chief complaint: General Medical Stated complaint: High BS Time Seen by Provider: 05/16/24 10:16 Source: patient Mode of arrival: EMS Limitations: no limitations History of Present Illness: Patient is a 43-year-old male with a history of chronic kidney disease on dialysis Tuesdays, , Saturdays, hypertension, peripheral neuropathy, ulcers to feet being treated by Dr. Ch-last seen yesterday here from the dialysis clinic due to concerns for blood sugar issues . He reportedly was at dialysis when his glucometer told him that his sugars were low and reading 66. They reportedly had him drink oral glucose. When EMS arrived his sugars were actually elevated and reading over 500. Upon arrival to the emergency department his glucose was 586. He reportedly did not receive dialysis today. Patient is visibly nauseous upon arrival. Onset (ago): hour(s) Associated symptoms: Reports nausea and vomiting; Deny chest pain, dyspnea, headache(s), malaise, rash or palpitations Related Data Home Medications Medication Instructions Recorded Confirmed losartan 50 mg tablet 100 mg PO .HS 08/16/23 05/16/24 amlodipine 10 mg tablet 10 mg PO DAILY 12/01/23 05/16/24 furosemide 80 mg tablet 80 mg PO DAILY 05/16/24 05/16/24 insulin glargine U-300 conc 300 16 unit SUBCUT DAILY 05/16/24 05/16/24 unit/mL (1.5 mL) subcutaneous pen (Toujeo SoloStar U-300 Insulin) mirtazapine 15 mg tablet 15 mg PO BEDTIME 05/16/24 05/16/24 Previous Rx's Medication Instructions Recorded flash glucose sensor (FreeStyle See Rx Instructions .Route 06/30/22 Alicia 14 Day Sensor kit) .COMPLEX #1 ea insulin lispro 100 unit/mL 20 unit (0.2 mL) SUBCUT TID 30 12/14/22 subcutaneous pen (Humalog KwikPen days #15 mL (U-100) Insulin) Diabetic shoes with custom #1 ea 01/10/24 accommodative orthotics hydrocodone 5 mg-acetaminophen 325 1 tab PO Q6H PRN Pain 30 days #120 05/08/24 mg tablet tabs Allergies Allergy/AdvReac Type Severity Reaction Status Date / Time cefaclor [From Ceclor] Allergy rash Verified 05/15/24 08:28 metoclopramide [From Reglan] Allergy bites his Verified 05/15/24 08:28 tongue prochlorperazine Allergy no IV just Verified 05/15/24 08:28 [From Compazine] oral Review of Systems 2 Const: Denies: fever(s), chills, body aches, fatigue or malaise Card: Denies: chest pain or palpitations Resp: Denies: dyspnea GI: Reports: nausea and vomiting; Denies: abdominal pain or diarrhea Musc: Denies: neck pain, back pain, extremity pain, joint pain or joint swelling Skin/Breast: Denies: rash Neuro: Denies: headache(s), numbness in extremities, weakness in extremities or sensory changes PFSH ED 2 PFSH: Medical History Depression Anemia DKA, type 1 Diabetic peripheral neuropathy Surgical History History of jejunostomy History of pyloroplasty History of cholecystectomy Family History Other Chronic kidney disease (CKD) Social History Smoking and tobacco/nicotine status: never used tobacco/nicotine Alcohol intake: former Substance/Drug Use: never Physical Exam 2 Const: COMMON NORMALS: no limitations, alert and well nourished GENERAL APPEARANCE: appears older than stated age ORIENTATION/CONSCIOUSNESS: Yes awake, Yes oriented to person, Yes oriented to place and Yes oriented to time OTHER: actively dry heaving HENMT: COMMON NORMALS: normocephalic and atraumatic HEAD & SCALP: normal to inspection, normocephalic and atraumatic Eye: GENERAL EYE: appearance normal, both eyes and all related structures Chest: COMMONS NORMALS: normal inspection of the chest Resp: COMMON NORMALS: normal respiratory effort and clear to auscultation bilaterally AUSCULTATION: clear to auscultation bilaterally Cardio: COMMON NORMALS: regular rate and regular rhythm RATE: regular rate RHYTHM: regular rhythm GI: COMMON NORMALS: Normal to inspection, nondistended, normoactive bowel sounds present, Soft to palpation, non-tender, No hepatosplenomegaly present and no masses PALPATION: Yes Soft to palpation and Yes No hepatosplenomegaly present : COMMON NORMALS: Yes no CVA tenderness BLADDER/KIDNEY EXAM: Yes no CVA tenderness Back/Pelvis: COMMON NORMALS: no CVA tenderness Neuro: VILMA COMA SCALE: document GCS findings [place] coma scale eye opening: Spontaneous [place] coma scale verbal response: Orientated [place] coma scale motor response: Obey commands [place] coma scale total score: 15 COMMON NORMALS: moves all extremities, no focal motor deficits and no sensory deficits noted SENSORIUM/ORIENTATION: Yes alert, Yes oriented to person, Yes oriented to place and Yes oriented to time Course 2 Consultations: Consultation #1: Dr. Vazquez-accepts observation admission Consultation #2: Dr. TellesIjwsjkh-adrlmfywar-dyrl consult on patient Vital Signs: Vital signs: Vital Signs Temperature 97.7 F 05/16/24 10:37 Pulse Rate 89 05/16/24 13:28 Respiratory Rate 18 05/16/24 13:28 Blood Pressure 170/89 05/16/24 13:28 Pulse Oximetry 95 05/16/24 13:28 Oxygen Delivery Me thod Room Air 05/16/24 13:28 MDM - General Adult Medical Decision Making Will admit patient to observation for inpatient dialysis and treatment of his hyperglycemia. Medical Records I reviewed the patient's medical records. Lab Data I reviewed the patient's lab results. 05/16/24 11:32 05/16/24 11:32 Radiology Impressions Chest X-Ray 05/16/24 10:47 IMPRESSION: New 4 cm soft tissue mass in the right mid lung projecting over the superior right pulmonary hilum. This should be further evaluated with CT of the chest. Laboratory Results WBC 10.27 10^3/uL (3.29-11.43) 05/16/24 11:32 RBC 3.84 10^6/uL (3.85-5.65) L 05/16/24 11:32 Hgb 12.20 g/dL (11.27-16.99) 05/16/24 11:32 Hct 39.0 % (37-53) 05/16/24 11:32 MCV 101.6 fl (82-101) H 05/16/24 11:32 MCH 31.8 pg (27-33) 05/16/24 11:32 MCHC 31.3 g/dL (30-55) 05/16/24 11:32 RDW 14.1 % (12.1-15.1) 05/16/24 11:32 Plt Count 301 10^3/cmm (157-399) 05/16/24 11:32 MPV 10.4 fL (7.4-10.4) 05/16/24 11:32 Neut % (Auto) 87.2 % 05/16/24 11:32 Lymph % (Auto) 9.3 % 05/16/24 11:32 [place] % (Auto) 1.6 % 05/16/24 11:32 Eos % (Auto) 0.9 % 05/16/24 11:32 Baso % (Auto) 0.5 % 05/16/24 11:32 Neut # (Auto) 8.96 10^3/uL (1.8-7.7) H 05/16/24 11:32 Lymph # (Auto) 1.0 10^3/uL (0.8-4.8) 05/16/24 11:32 [place] # (Auto) 0.2 10^3/uL (0.2-0.9) 05/16/24 11:32 Eos # (Auto) 0.1 10^3/uL (0.0-0.8) 05/16/24 11:32 Baso # (Auto) 0.1 10^3/uL (0.0-0.1) 05/16/24 11:32 Nucleated RBC % (auto) 0 % 05/16/24 11:32 Nucleated RBCs # 0.0 /100WBC 05/16/24 11:32 Specimen Type Arterial 05/16/24 11:35 Sample Site Brachial, left 05/16/24 11:35 ABG pH 7.36 (7.35-7.45) 05/16/24 11:35 ABG pCO2 51.5 mmHg (35-45) H 05/16/24 11:35 ABG pO2 80.7 mmHg (80.0-100.0) 05/16/24 11:35 ABG HCO3 28.8 mmol/L (22-26) H 05/16/24 11:35 ABG O2 Saturation 93.6 05/16/24 11:35 ABG Base Excess 2.5 mmol/L (-2.0-2.0) H 05/16/24 11:35 Santosh Test N/a 05/16/24 11:35 A-a O2 Gradient 0.8 mmHg (5-10) L 05/16/24 11:35 Hematocrit 34.9 % (42-52) L 05/16/24 11:35 Hgb O2 Saturation 92.3 % (95-100) L 05/16/24 11:35 Carboxyhemoglobin < 0.3 %THgb (0.4-20.1) L 05/16/24 11:35 Methemoglobin 1.4 % (0.4-1.5) 05/16/24 11:35 Total Hemoglobin 11.4 g/dL (14-18) L 05/16/24 11:35 Sodium 140.0 mmol/L (131-143) 05/16/24 11:35 Potassium 5.0 mmol/L (3.5-5.0) 05/16/24 11:35 Glucose 503.0 mg/dL (70-115) H 05/16/24 11:35 Ionized Calcium 1.2 mmol/L (1.1-1.4) 05/16/24 11:35 O2 Delivery Device Room air 05/16/24 11:35 Waste Water Or Water Plant Operator ID [id number] 05/16/24 11:35 Sodium 131 mmol/L (136-145) L 05/16/24 11:32 Potassium 5.6 mmol/L (3.5-5.1) H 05/16/24 11:32 Chloride 89 mmol/L (98-107) L 05/16/24 11:32 Carbon Dioxide 23 mmol/L (22-29) 05/16/24 11:32 Anion Gap 24.6 (5-19) H 05/16/24 11:32 BUN 88 mg/dL (6-20) H* D 05/16/24 11:32 Creatinine 8.5 mg/dL (0.7-1.2) H* 05/16/24 11:32 GFR Calculation 6.8 mL/min (90-130) L 05/16/24 11:32 Glucose 583 mg/dL (65-115) H* 05/16/24 11:32 POC Glucose 473 mg/dL (70-110) H 05/16/24 12:34 Calculated Osmolality 326 mOsm/kg (285-295) H 05/16/24 11:32 Calcium 8.6 mg/dL (8.5-10.5) 05/16/24 11:32 Total Bilirubin 0.5 mg/dL (0.15-1.2) 05/16/24 11:32 AST 46 U/L (0-40) H 05/16/24 11:32 ALT 51 U/L (0-41) H 05/16/24 11:32 Alkaline Phosphatase 181 U/L (40-130) H 05/16/24 11:32 Total Protein 7.6 g/dL (6.6-8.7) 05/16/24 11:32 Albumin 3.8 g/dL (3.5-5.2) 05/16/24 11:32 Globulin 3.8 g/dL (1.3-4.6) 05/16/24 11:32 Lipase 43 U/L (13-60) 05/16/24 11:32 Urine Color Yellow (Yellow) 05/16/24 10:30 Urine Appearance Cloudy (CLEAR) A 05/16/24 10:30 Urine pH 8.5 (5-7) A 05/16/24 10:30 Ur Specific [place] 1.016 (1.005-1.030) 05/16/24 10:30 Urine Protein 3+ (Negative) A 05/16/24 10:30 Urine Glucose (UA) 3+ (Normal) H 05/16/24 10:30 Urine Ketones Negative (Negative) 05/16/24 10:30 Urine Blood Trace (Negative) A 05/16/24 10:30 Urine Nitrate Negative (Negative) 05/16/24 10:30 Urine Bilirubin Negative (Negative) 05/16/24 10:30 Urine Urobilinogen 0.2 mg/dL (Negative) 05/16/24 10:30 Ur Leukocyte Esterase Negative (Negative) 05/16/24 10:30 Urine RBC 25-40 /hpf (0-2) H 05/16/24 10:30 Urine WBC 0-4 /hpf (0-5) H 05/16/24 10:30 Ur Squamous Epith Cells 0-4 /hpf (0-5) H 05/16/24 10:30 Amorphous Sediment Not Reportable 05/16/24 10:30 Urine Bacteria Trace /hpf (NONE) 05/16/24 10:30 Hyaline Casts 5-10 /lpf H 05/16/24 10:30 Urine Mucus 1+ /hpf 05/16/24 10:30 Urine Sperm 4+ /hpf 05/16/24 10:30 Ur Oval Fat Bodies 1+ /hpf 05/16/24 10:30 Serum Ketones Negative (Negative) 05/16/24 11:32 Discharge Plan Discharge Patient Disposition: Placed in Observation Clinical Impression: Missed dialysis, Acute hyperglycemia, Acute on chronic kidney failure Coding Level of Care Code ED Outbound Supervisor for Chg Fwd Documented by User: Clyde Deleon DO 05/16/24 13:44 HPI - General Adult 2 General: Chief complaint: General Medical Stated complaint: High BS Time Seen by Provider: 05/16/24 10:16 Related Data Home Medications Medication Instructions Recorded Confirmed losartan 50 mg tablet 100 mg PO .HS 08/16/23 05/16/24 amlodipine 10 mg tablet 10 mg PO DAILY 12/01/23 05/16/24 furosemide 80 mg tablet 80 mg PO DAILY 05/16/24 05/16/24 insulin glargine U-300 conc 300 16 unit SUBCUT DAILY 05/16/24 05/16/24 unit/mL (1.5 mL) subcutaneous pen (Toujeo SoloStar U-300 Insulin) mirtazapine 15 mg tablet 15 mg PO BEDTIME 05/16/24 05/16/24 Previous Rx's Medication Instructions Recorded flash glucose sensor (FreeStyle See Rx Instructions .Route 06/30/22 Alicia 14 Day Sensor kit) .COMPLEX #1 ea insulin lispro 100 unit/mL 20 unit (0.2 mL) SUBCUT TID 30 12/14/22 subcutaneous pen (Humalog KwikPen days #15 mL (U-100) Insulin) Diabetic shoes with custom #1 ea 01/10/24 accommodative orthotics hydrocodone 5 mg-acetaminophen 325 1 tab PO Q6H PRN Pain 30 days #120 09/30/24 mg tablet tabs Allergies Allergy/AdvReac Type Severity Reaction Status Date / Time cefaclor [From Ceclor] Allergy rash Verified 05/15/24 08:28 metoclopramide [From Reglan] Allergy bites his Verified 05/15/24 08:28 tongue prochlorperazine Allergy no IV just Verified 05/15/24 08:28 [From Compazine] oral PFSH ED 2 PFSH: Medical History Depression Anemia DKA, type 1 Diabetic peripheral neuropathy Surgical History History of jejunostomy History of pyloroplasty History of cholecystectomy Family History Other Chronic kidney disease (CKD) Social History Smoking and tobacco/nicotine status: never used tobacco/nicotine Alcohol intake: former Substance/Drug Use: never Physical Exam 2 Neuro: VILMA COMA SCALE: document GCS findings [place] coma scale total score: 15 Course 2 Vital Signs: Vital signs: Vital Signs Temperature 97.7 F 05/16/24 10:37 Pulse Rate 89 05/16/24 13:28 Respiratory Rate 18 05/16/24 13:28 Blood Pressure 170/89 05/16/24 13:28 Pulse Oximetry 95 05/16/24 13:28 Oxygen Delivery Me thod Room Air 05/16/24 13:28 MDM - General Adult Medical Decision Making Will admit patient to observation for inpatient dialysis and treatment of his hyperglycemia. Chart reviewed and patient discussed with midlevel. Agree with assessment and plan. Chest x-ray shows right middle lobe mass radiology read pending Lab Data 05/16/24 11:32 05/16/24 11:32 Radiology Impressions Chest X-Ray 05/16/24 10:47 IMPRESSION: New 4 cm soft tissue mass in the right mid lung projecting over the superior right pulmonary hilum. This should be further evaluated with CT of the chest. Laboratory Results WBC 10.27 10^3/uL (3.29-11.43) 05/16/24 11:32 RBC 3.84 10^6/uL (3.85-5.65) L 05/16/24 11:32 Hgb 12.20 g/dL (11.27-16.99) 05/16/24 11:32 Hct 39.0 % (37-53) 05/16/24 11:32 MCV 101.6 fl (82-101) H 05/16/24 11:32 MCH 31.8 pg (27-33) 05/16/24 11:32 MCHC 31.3 g/dL (30-55) 05/16/24 11:32 RDW 14.1 % (12.1-15.1) 05/16/24 11:32 Plt Count 301 10^3/cmm (157-399) 05/16/24 11:32 MPV 10.4 fL (7.4-10.4) 05/16/24 11:32 Neut % (Auto) 87.2 % 05/16/24 11:32 Lymph % (Auto) 9.3 % 05/16/24 11:32 [place] % (Auto) 1.6 % 05/16/24 11:32 Eos % (Auto) 0.9 % 05/16/24 11:32 Baso % (Auto) 0.5 % 05/16/24 11:32 Neut # (Auto) 8.96 10^3/uL (1.8-7.7) H 05/16/24 11:32 Lymph # (Auto) 1.0 10^3/uL (0.8-4.8) 05/16/24 11:32 [place] # (Auto) 0.2 10^3/uL (0.2-0.9) 05/16/24 11:32 Eos # (Auto) 0.1 10^3/uL (0.0-0.8) 05/16/24 11:32 Baso # (Auto) 0.1 10^3/uL (0.0-0.1) 05/16/24 11:32 Nucleated RBC % (auto) 0 % 05/16/24 11:32 Nucleated RBCs # 0.0 /100WBC 05/16/24 11:32 Specimen Type Arterial 05/16/24 11:35 Sample Site Brachial, left 05/16/24 11:35 ABG pH 7.36 (7.35-7.45) 05/16/24 11:35 ABG pCO2 51.5 mmHg (35-45) H 05/16/24 11:35 ABG pO2 80.7 mmHg (80.0-100.0) 05/16/24 11:35 ABG HCO3 28.8 mmol/L (22-26) H 05/16/24 11:35 ABG O2 Saturation 93.6 05/16/24 11:35 ABG Base Excess 2.5 mmol/L (-2.0-2.0) H 05/16/24 11:35 Santosh Test N/a 05/16/24 11:35 A-a O2 Gradient 0.8 mmHg (5-10) L 05/16/24 11:35 Hematocrit 34.9 % (42-52) L 05/16/24 11:35 Hgb O2 Saturation 92.3 % (95-100) L 05/16/24 11:35 Carboxyhemoglobin < 0.3 %THgb (0.4-20.1) L 05/16/24 11:35 Methemoglobin 1.4 % (0.4-1.5) 05/16/24 11:35 Total Hemoglobin 11.4 g/dL (14-18) L 05/16/24 11:35 Sodium 140.0 mmol/L (131-143) 05/16/24 11:35 Potassium 5.0 mmol/L (3.5-5.0) 05/16/24 11:35 Glucose 503.0 mg/dL (70-115) H 05/16/24 11:35 Ionized Calcium 1.2 mmol/L (1.1-1.4) 05/16/24 11:35 O2 Delivery Device Room air 05/16/24 11:35 Waste Water Or Water Plant Operator ID Gd 05/16/24 11:35 Sodium 131 mmol/L (136-145) L 05/16/24 11:32 Potassium 5.6 mmol/L (3.5-5.1) H 05/16/24 11:32 Chloride 89 mmol/L (98-107) L 05/16/24 11:32 Carbon Dioxide 23 mmol/L (22-29) 05/16/24 11:32 Anion Gap 24.6 (5-19) H 05/16/24 11:32 BUN 88 mg/dL (6-20) H* D 05/16/24 11:32 Creatinine 8.5 mg/dL (0.7-1.2) H* 05/16/24 11:32 GFR Calculation 6.8 mL/min (90-130) L 05/16/24 11:32 Glucose 583 mg/dL (65-115) H* 05/16/24 11:32 POC Glucose 473 mg/dL (70-110) H 05/16/24 12:34 Calculated Osmolality 326 mOsm/kg (285-295) H 05/16/24 11:32 Calcium 8.6 mg/dL (8.5-10.5) 05/16/24 11:32 Total Bilirubin 0.5 mg/dL (0.15-1.2) 05/16/24 11:32 AST 46 U/L (0-40) H 05/16/24 11:32 ALT 51 U/L (0-41) H 05/16/24 11:32 Alkaline Phosphatase 181 U/L (40-130) H 05/16/24 11:32 Total Protein 7.6 g/dL (6.6-8.7) 05/16/24 11:32 Albumin 3.8 g/dL (3.5-5.2) 05/16/24 11:32 Globulin 3.8 g/dL (1.3-4.6) 05/16/24 11:32 Lipase 43 U/L (13-60) 05/16/24 11:32 Urine Color Yellow (Yellow) 05/16/24 10:30 Urine Appearance Cloudy (CLEAR) A 05/16/24 10:30 Urine pH 8.5 (5-7) A 05/16/24 10:30 Ur Specific [place] 1.016 (1.005-1.030) 05/16/24 10:30 Urine Protein 3+ (Negative) A 05/16/24 10:30 Urine Glucose (UA) 3+ (Normal) H 05/16/24 10:30 Urine Ketones Negative (Negative) 05/16/24 10:30 Urine Blood Trace (Negative) A 05/16/24 10:30 Urine Nitrate Negative (Negative) 05/16/24 10:30 Urine Bilirubin Negative (Negative) 05/16/24 10:30 Urine Urobilinogen 0.2 mg/dL (Negative) 05/16/24 10:30 Ur Leukocyte Esterase Negative (Negative) 05/16/24 10:30 Urine RBC 25-40 /hpf (0-2) H 05/16/24 10:30 Urine WBC 0-4 /hpf (0-5) H 05/16/24 10:30 Ur Squamous Epith Cells 0-4 /hpf (0-5) H 05/16/24 10:30 Amorphous Sediment Not Reportable 05/16/24 10:30 Urine Bacteria Trace /hpf (NONE) 05/16/24 10:30 Hyaline Casts 5-10 /lpf H 05/16/24 10:30 Urine Mucus 1+ /hpf 05/16/24 10:30 Urine Sperm 4+ /hpf 05/16/24 10:30 Ur Oval Fat Bodies 1+ /hpf 05/16/24 10:30 Serum Ketones Negative (Negative) 05/16/24 11:32 XR interpretation done by ED provider, pending radiology final review Discharge Plan Discharge Patient Disposition: Placed in Observation Clinical Impression: Missed dialysis, Acute hyperglycemia, Acute on chronic kidney failure Coding Level of Care Code ED Outbound Supervisor for Rafi Zavala
[2024-05-16 11:03] LABS: Bilirubin Urine Negative (Negative); Blood Urine Trace (Negative); Glucose Urine UA 3+ (Normal); Ketones Urine Negative (Negative); Leukocyte Esterase Urine Negative (Negative); Nitrate Urine Negative (Negative); Protein Urine 3+ (Negative); Specific Gravity, Urine 1.016 (1.005-1.030); Urine Appearance Cloudy (CLEAR); Urine Color Yellow (Yellow); Urobilinogen Urine 0.2 mg/dL (Negative); pH Urine 8.5 (5-7)
[2024-05-16 11:08] LABS: Add Urine Microscopic? YES
[2024-05-16] MEDS: sodium chloride 0.9% 1,000 ML 999 ML IV (11:13)
[2024-05-16 11:18] LABS: Glucose Point of Care 586 mg/dL (70-110)
[2024-05-16] MEDS: insulin regular-human 100 units/1 mL 10 UNIT IVP ×2 (11:22→12:36)
[2024-05-16 11:32] LABS: UA Slide Review UA Slide Review Perf
[2024-05-16 11:36] LABS: Bacteria Urine TRACE /hpf; Mucus Urine 1+ /hpf; Oval Fat Bodies Urine 1+ /hpf; RBC Urine 25-40 /hpf (0-2); Sperm Urine 4+ /hpf; Squamous Epithelial Cell Urine 0-4 /hpf (0-5); UA Manual Slide Review YES; WBC Urine 0-4 /hpf (0-5)
[2024-05-16 11:37] LABS: Add Urine Culture? No
[2024-05-16 11:54] LABS: Basophils # 0.1 10^3/uL (0.0-0.1); Basophils % 0.5 %; Eosinophils # 0.1 10^3/uL (0.0-0.8); Eosinophils % 0.9 %; Lymphocytes % 9.3 %; Mean Corpuscular HGB Conc 31.3 g/dL (30-55); Mean Corpuscular Hemoglobin 31.8 pg (27-33); Mean Corpuscular Volume 101.6 fl (82-101); Mean Platelet Volume 10.4 fL (7.4-10.4); Monocytes # 0.2 10^3/uL (0.2-0.9); Monocytes % 1.6 %; Neutrophils # 8.96 10^3/uL (1.8-7.7); Neutrophils % 87.2 %; Nucleated Red Blood Cells % 0 %; Platelet Count 301 10^3/cmm (157-399); Red Blood Count 3.84 10^6/uL (3.85-5.65); Red Cell Distribution Width 14.1 % (12.1-15.1); White Blood Count 10.27 10^3/uL (3.29-11.43)
[2024-05-16] MEDS: LORazepam 2 mg/mL INJ 1 mL 0.5 MG IVP (11:54)
[2024-05-16 11:56] LABS: ABG PCO2 51.5 mmHg (35-45); ABG PH Result 7.36 (7.35-7.45); Alveolar-Arterial Oxygen Gradi 0.8 mmHg (5-10); Arterial Blood Gas Hematocrit 34.9 % (42-52); Base Excess ABG 2.5 mmol/L (-2.0-2.0); Blood Gas Operator Identificat GD; Blood Gas Sample Site Brachial, left; Blood Gas Sample Type Arterial; Carboxyhemoglobin < 0.3 %THgb (0.4-20.1); HCO3 ABG 28.8 mmol/L (22-26); HGB O2 Sat 92.3 % (95-100); Ionized Calcium Level - ABG 1.2 mmol/L (1.1-1.4); Methemoglobin 1.4 % (0.4-1.5); Oxygen Device ROOM AIR; Oxygen Saturation ABG 93.6; PO2 ABG 80.7 mmHg (80.0-100.0); Total Hemoglobin 11.4 g/dL (14-18)
[2024-05-16 12:00] LABS: Glucose Point of Care 493 mg/dL (70-110)
[2024-05-16 12:00] LABS: Alanine Aminotransferase 51 U/L (0-41); Albumin Level 3.8 g/dL (3.5-5.2); Alkaline Phosphatase 181 U/L (40-130); Calcium 8.6 mg/dL (8.5-10.5); Carbon Dioxide 23 mmol/L (22-29); Chloride 89 mmol/L (98-107); Globulin 3.8 g/dL (1.3-4.6); Glomerular Filtration Rate 6.8 mL/min (90-130); Lipase 43 U/L (13-60); Osmolality Calculated 326 mOsm/kg (285-295); Sodium 131 mmol/L (136-145); Total Bilirubin 0.5 mg/dL (0.15-1.2); Total Protein 7.6 g/dL (6.6-8.7)
[2024-05-16 12:13] LABS: Ketone (Acetest) Serum Negative (Negative)
[2024-05-16 12:20] LABS: Slide Review Slide Review Perform
[2024-05-16 12:23] LABS: Anion Gap 24.6 (5-19); Aspartate Amino Transferase 46 U/L (0-40); Potassium 5.6 mmol/L (3.5-5.1)
[2024-05-16 12:24] LABS: Blood Urea Nitrogen 88 mg/dL (6-20); Creatinine Clr Calc Pharmacy 10.7249
[2024-05-16 12:25] LABS: Glucose 583 mg/dL (65-115)
[2024-05-16 12:40] LABS: Glucose Point of Care 473 mg/dL (70-110)
--- NOTE | 2024-05-16 13:57 | PM.HP ---
Providers/Chief Complaint Primary Care Provider: Amrit Antoine MD Chief Complaint: High BS History of Present Illness Fabián Ortiz Jr is a 43 year old male with a past medical show type 1 diabetes mellitus, history of end-stage renal disease on dialysis, who presents to [facility] as he has not been feeling well for the last few days, no fevers, no chills, but does have fatigue, malaise, no nausea, no vomiting, no abdominal pain, no diarrhea, has a history of diabetic ulcers but no significant worsening, he does tell me for the last few days he has blood sugars have been fluctuating, this morning he did have breakfast, he took 20 units of his sliding scale, he does take 12 units of Toujeo at bedtime, he went to dialysis, he does not report any significant worsening of his symptomatology just general fatigue, malaise his blood sugar was low reading in the 50s, so he was given oral glucose, once EMS arrived his blood sugar was over 500, he had nausea, vomiting, so they presented the patient to the emergency room, currently he is alert oriented x 3, following all commands a bit drowsy, nausea and vomiting is under control, he did not receive dialysis, denies any lightheadedness, dizziness, no chest pain, no palpitations, no shortness of breath, Review of Systems Const: Reports: fatigue and malaise Card: Denies: chest pain Resp: Denies: dyspnea GI: Denies: abdominal pain : Denies: flank pain Neuro: Denies: headache(s) Medications/Allergies Home Medications Medication Instructions Recorded Confirmed Last Taken Type flash glucose sensor (FreeStyle See Rx Instructions .Route 06/30/22 05/16/24 Unknown Rx Alicia 14 Day Sensor kit) .COMPLEX #1 ea insulin lispro 100 unit/mL 20 unit (0.2 mL) SUBCUT TID 30 12/14/22 05/16/24 Unknown Rx subcutaneous pen (Humalog KwikPen days #15 mL (U-100) Insulin) losartan 50 mg tablet 100 mg PO .HS 08/16/23 05/16/24 Unknown History amlodipine 10 mg tablet 10 mg PO DAILY 12/01/23 05/16/24 Unknown History Diabetic shoes with custom #1 ea 01/10/24 05/16/24 Unknown Rx accommodative orthotics hydrocodone 5 mg-acetaminophen 325 1 tab PO Q6H PRN Pain 30 days #120 05/08/24 05/16/24 05/16/24 Rx mg tablet tabs furosemide 80 mg tablet 80 mg PO DAILY 05/16/24 05/16/24 Unknown History insulin glargine U-300 conc 300 16 unit SUBCUT DAILY 05/16/24 05/16/24 Unknown History unit/mL (1.5 mL) subcutaneous pen ([employer] SoloStar U-300 Insulin) mirtazapine 15 mg tablet 15 mg PO BEDTIME 05/16/24 05/16/24 Unknown History Allergies Allergy/AdvReac Type Severity Reaction Status Date / Time cefaclor [From Ceclor] Allergy rash Verified 05/15/24 08:28 metoclopramide [From Reglan] Allergy bites his Verified 05/15/24 08:28 tongue prochlorperazine Allergy no IV just Verified 05/15/24 08:28 [From Compazine] oral PFSH Acute PFSH: Medical History Depression Anemia DKA, type 1 Diabetic peripheral neuropathy Surgical History History of jejunostomy History of pyloroplasty History of cholecystectomy Family History Other Chronic kidney disease (CKD) Social History Smoking and tobacco/nicotine status: never used tobacco/nicotine Alcohol intake: former Substance/Drug Use: never Vitals/I&O/Wt Last Vital Signs Temp 97.7 F 05/16/24 10:37 Pulse 92 05/16/24 13:51 Resp 18 05/16/24 13:51 BP 179/97 05/16/24 13:51 Pulse Ox 98 05/16/24 13:51 O2 Del Method Room Air 05/16/24 13:51 05/15/24 05/16/24 05/16/24 22:59 06:59 14:59 Intake Total 1000 / 1000 Balance 1000 / 1000 Weight last 48 hrs Weight 66.678 kg Physical Exam Const: COMMON NORMALS: no acute distress and patient oriented x3 HENMT: COMMON NORMALS: normocephalic HEAD & SCALP: normocephalic Eye: COMMON NORMALS: Equal, round and reactive pupils present Neck/C-Spine: COMMON NORMALS: no JVD Resp: COMMON NORMALS: normal respiratory effort, No retractions, No use of accessory muscles and clear to auscultation bilaterally AUSCULTATION: clear to auscultation bilaterally Cardio: COMMON NORMALS: no JVD, regular rate, regular rhythm, S1 normal heart sound present and S2 normal heart sound present RATE: regular rate RHYTHM: regular rhythm HEART SOUNDS: S1 normal heart sound present and S2 normal heart sound present GI: COMMON NORMALS: Normal to inspection, nondistended, normoactive bowel sounds present, Soft to palpation and non-tender Extremity: COMMON NORMALS: no calf tenderness and no pedal edema Neuro: COMMON NORMALS: patient oriented x3, CN's II-XII intact bilaterally and moves all extremities Psych: COMMON NORMALS: mental status grossly normal Data 05/16/24 11:32 05/16/24 11:32 A&P Assessment and plan (1) Acute hyperglycemia: (2) Acute on chronic kidney failure: Qualifiers: Acute renal failure type: unspecified Chronic kidney disease stage: unspecified stage Qualified Code(s): N17.9 - Acute kidney failure, unspecified; N18.9 - Chronic kidney disease, unspecified Plan Fluctuating blood sugars, hypoglycemia, hyperglycemia ? Will monitor as inpatient ? IV fluids ? Blood sugar was 583, anion gap 24.6, however pH within normal limits, anion gap within normal limits, blood sugar down to 473 ? Continue IV fluids ? Moderate dose sliding scale Monitor blood sugars closely Type 1 diabetes mellitus, as above End-stage renal disease, missed dialysis, will receive dialysis today Fatigue, malaise, etiology unclear perhaps secondary to UTI, was placed patient on ciprofloxacin Full code ? Lovenox for DVT prophylaxis Attestations Medical Necessity Statement*: Patient requires hospitalization for fluctuating blood sugars, type I diabetic, ESRD, missed dialysis, Coding Level of Care Code Acute Code for Chg Fwd Diagnoses Acute hyperglycemia R73.9 Acute on chronic kidney failure N17.9; N18.9 Acute renal failure type: unspecified Chronic kidney disease stage: unspecified stage
--- NOTE | 2024-05-16 14:17 | P.CONIM_ITS ---
Providers/Reason For Consult 2 Consulting Physician/Specialty*: nate doyle md / telenephrology Reason for Consult*: ESRD, hyperkalemia, and hyperglycemia Requesting Physician: Dr Jay Vazquez Primary Care Provider: Amrit Antoine MD History of Present Illness History of Present Illness Fabián Ortiz Jr is a 43 year old male history of type 1 diabetes, ESRD on dialysis for approximately 2 years, peripheral vascular disease diabetic nephropathy with toe amputations. The patient was at dialysis today had approximately 30 to 60 minutes of dialysis and he states that he is blood sugar was fluctuating from very low to very high he states that he was hypoglycemic and given oral glucose on dialysis EMS was called by then his sugar was over 500 he had nausea and vomiting patient came to the emergency room with nausea vomiting abdominal pain and hypertension and renal was called to see the patient Review of Systems 2 Narrative: Very labile sugars. Nausea vomiting abdominal pain shortness of breath no chest pain no hearing or seeing changes poor vision positive leg neuropathy positive amputations. No diarrhea positive headaches. Denies fevers. Positive urinary symptoms. Medications/Allergies Home Medications Medication Instructions Recorded Confirmed Last Taken Type flash glucose sensor (FreeStyle See Rx Instructions .Route 06/30/22 05/16/24 Unknown Rx Alicia 14 Day Sensor kit) .COMPLEX #1 ea insulin lispro 100 unit/mL 20 unit (0.2 mL) SUBCUT TID 30 12/14/22 05/16/24 Unknown Rx subcutaneous pen (Humalog Kwik days #15 mL (U-100) Insulin) losartan 50 mg tablet 100 mg PO .HS 08/16/23 05/16/24 Unknown History amlodipine 10 mg tablet 10 mg PO DAILY 12/01/23 05/16/24 Unknown History Diabetic shoes with custom #1 ea 01/10/24 05/16/24 Unknown Rx accommodative orthotics hydrocodone 5 mg-acetaminophen 325 1 tab PO Q6H PRN Pain 30 days #120 05/08/24 05/16/24 05/16/24 Rx mg tablet tabs furosemide 80 mg tablet 80 mg PO DAILY 05/16/24 05/16/24 Unknown History insulin glargine U-300 conc 300 16 unit SUBCUT DAILY 05/16/24 05/16/24 Unknown History unit/mL (1.5 mL) subcutaneous pen (Toujeo SoloStar U-300 Insulin) mirtazapine 15 mg tablet 15 mg PO BEDTIME 05/16/24 05/16/24 Unknown History Allergies Allergy/AdvReac Type Severity Reaction Status Date / Time cefaclor [From Ceclor] Allergy rash Verified 05/15/24 08:28 metoclopramide [From Reglan] Allergy bites his Verified 05/15/24 08:28 tongue prochlorperazine Allergy no IV just Verified 05/15/24 08:28 [From Compazine] oral PFSH Acute 2 PFSH: Medical History (Updated 05/16/24 @ 14:22 by Jeremy Doyle MD) ESRD on dialysis Depression Anemia DKA, type 1 Diabetic peripheral neuropathy Surgical History History of jejunostomy History of pyloroplasty History of cholecystectomy Family History Other Chronic kidney disease (CKD) Social History Smoking and tobacco/nicotine status: never used tobacco/nicotine Alcohol intake: former Substance/Drug Use: never Vitals/I&O/Wt Last Vital Signs Temp 97.7 F 05/16/24 10:37 Pulse 92 05/16/24 13:51 Resp 18 05/16/24 13:51 BP 179/97 05/16/24 13:51 Pulse Ox 98 05/16/24 13:51 O2 Del Method Room Air 05/16/24 13:51 05/15/24 05/16/24 05/16/24 22:59 06:59 14:59 Intake Total 1000 / 1000 Balance 1000 / 1000 Weight last 48 hrs Weight 66.678 kg Physical Exam 2 Narrative: Patient lying in bed no respiratory distress. Vital signs noted. HEENT normocephalic atraumatic. Positive the eye abnormalities. Neck is supple Lungs clear. Heart regular with systolic murmur. Abdomen soft positive bowel sounds. Extremities right upper extremity AV fistula with good thrill and bruit. Lites have no significant edema. Poor distal pulses. Positive toe amputations. Data 05/16/24 11:32 05/16/24 11:32 Other data: Echo from February 2022 shows grade 3 out of 4 diastolic dysfunction with restrictive filling pattern severely elevated filling pressures. Moderate to severe mitral valve regurgitation pulmonary artery pressure of approximately 48. A&P Assessment and plan (1) ESRD on dialysis: 43-year-old gentleman type 1 diabetes/insulin-dependent diabetes mellitus, hypertension, ESRD, heart failure preserved EF with severe diastolic dysfunction and restrictive filling pattern in 2021. Patient is here now with labile sugar. 1. Labile sugar as per medicine. 2. ESRD patient has mild hyperkalemia which will likely improve with treatment of his sugars -As the patient has hypertension, signs of volume overload on his face with edema and potassium 5.6 he only had 30 minutes of dialysis today will be dialyzed the patient for 3 hours on a 2K bath and attempt to remove 2 L. If blood pressure drops on dialysis we will decrease fluid removal. 3. Repeat echo. 4. Abnormal urinalysis noted patient only has 0-4 white cells and 25-40 RBCs this does not appear like a UTI. Please ensure the patient sees urology this can be done as an outpatient. 5. Hemoglobin appears appropriate. 6. Patient has a respiratory acidosis and likely a metabolic alkalosis from his vomiting and from receiving bicarbonate on dialysis. The patient also has an increased anion gap metabolic acidosis his ketones are normal we can check lactate. Most likely this is from ESRD. 7. Patient has known hepatitis C when we saw him in the summer 2021 his viral load was as high as 2,540,000. Further evaluation as per his primary care. Patient was seen and examined using audiovisual equipment with the aid of his nurse. Patient consents to telehealth and to dialysis. Case discussed in detail with the patient and his physician. Plan See above. Consult Attestations 2 Medical Necessity Statement: Labile sugar, nausea vomiting Time Spent in Patient Care: Greater than 35 minutes (>than 50% of time spent in counselling and/or direct pt care on unit) . Coding Level of Care Code Acute Code for [facility] Fwd Diagnoses ESRD on dialysis N18.6; Z99.2
--- NOTE | 2024-05-16 14:31 | USCV_ITS ---
Fabián Ortiz Age: 43 Gender: M : 1980 Exam Date: 05/16/2024 14:53 Ordering Phys: Jeremy Telles MD Technologist: Exam Location: [facility] [place] Indication: sob BP: 144 / 74 HR: 84 Rhythm: Sinus Technical Quality: Adequate MEASUREMENTS (Male / Female) Normal Values 2D ECHO LV Diastolic Diameter PLAX 5.7 cm 4.2 - 5.9 / 3.9 - 5.3 cm IVS Diastolic Thickness 1.5 cm 0.6 - 1.0 / 0.6 - 0.9 cm IVS Systolic Thickness 1.5 cm LVPW Diastolic Thickness 1.4 cm 0.6 - 1.0 / 0.6 - 0.9 cm LVPW Systolic Thickness 1.7 cm LVOT Diameter 2.1 cm LV Ejection Fraction 2D Teich 55.2 % LV Ejection Fraction MOD 4C 59.4 % LV Ejection Fraction MOD 2C 55.3 % LV Ejection Fraction 2C AL 55.6 % LA Diameter 4.6 cm RA Systolic Volume 4C AL 50.6 ml RA Systolic Volume 4C MOD 51.5 ml LA Sys Volume AL 103.5 cm cubed LA Sys Volume Index AL 54.2 cm cubed/m squared Aorta at Sinotubular Diameter 2.9 cm M-MODE LA Ao Ratio MM 1.4 AV Cusp Separation MM 2.6 cm DOPPLER AV Peak Velocity 173.0 cm/s LVOT Peak Velocity 88.0 cm/s AV Area Cont Eq vti 2.3 cm squared AV Area Cont Eq pk 1.8 cm squared MV Peak Velocity 178.0 cm/s MV Area PHT 2.7 cm squared Mitral E to A Ratio 1.0 TV Peak Velocity 215.0 cm/s TR Peak Velocity 242.0 cm/s TR Peak Gradient 23.4 mmHg TV Peak E Velocity 95.0 cm/s Right Atrial Pressure 3.0 mmHg Pulmonary Artery Systolic Pressu 26.4 mmHg PV Peak Velocity 114.0 cm/s FINDINGS Left Ventricle Normal left ventricular cavity size. Normal left ventricular systolic function. Mild left ventricular hypertrophy. Left ventricular ejection fraction is estimated at 55 %. Grade I/IV diastolic dysfunction (abnormal relaxation filling pattern), normal to mildly elevated filling pressures. Right Ventricle The right ventricle is normal in size and function. Right Atrium The right atrium is normal in size. Left Atrium Moderately increased left atrial size. Mitral Valve Moderately thickened mitral valve. No mitral valve stenosis. Severely thickened mitral valve. Severe mitral annular calcification. Moderate mitral valve regurgitation. Aortic Valve Mild aortic valve calcification. No aortic valve stenosis. Trace aortic valve regurgitation. Tricuspid Valve Structurally normal tricuspid valve without significant stenosis or regurgitation. Pulmonary artery systolic pressure is normal. Pulmonic Valve Mild pulmonary valve regurgitation. Pericardium Normal pericardium without effusion. Aorta Normal ascending aorta dimension. IVC The inferior vena cava appears normal. CONCLUSIONS Normal left ventricular cavity size. Normal left ventricular systolic function. Mild left ventricular hypertrophy. Left ventricular ejection fraction is estimated at 55 %. Grade I/IV diastolic dysfunction (abnormal relaxation filling pattern), normal to mildly elevated filling pressures. Moderately increased left atrial size. Moderately thickened mitral valve. No mitral valve stenosis. Severely thickened mitral valve. Severe mitral annular calcification. Moderate mitral valve regurgitation. There is no pericardial effusion. Right atrial pressure is around 5 mm of mercury. Bao Oneil MD (Electronically Signed) Final Date: 17 May 2024 07:14 S
[2024-05-16 14:48] LABS: C Reactive Protein 3.5 mg/L (0.0-4.9); Lactic Sepsis W/Reflex 1.5 mmol/L (0.5-2.2)
[2024-05-16 14:49] LABS: Erythrocyte Sedimentation Rate 44 mm/hr (0-10)
[2024-05-16 14:50] LABS: Alcohol Level < 10 mg/dL (0-10)
[2024-05-16 14:56] LABS: Procalcitonin 0.68 ng/mL (0-0.5)
[2024-05-16 15:03] LABS: Glucose Point of Care 179 mg/dL (70-110)
[2024-05-16] MEDS: sodium chloride 0.9% 1,000 ML 100 ML IV (15:41)
[2024-05-16 15:46] LABS: Amphetamines Screen Urine Negative (Negative); Barbiturates Screen Urine Negative (Negative); Benzodiazepines Screen Urine Negative (Negative); Cocaine Screen Urine Negative (Negative); Opiate Screen Urine Positive (Negative); PCP Screen Urine Negative (Negative); THC Screen Urine Negative (Negative)
[2024-05-16] MEDS: enoxaparin 30 mg/0.3 mL Syringe SUBCUT (15:51)
[2024-05-16] MEDS: ciprofloxacin 400 MG/200 ML PREMIX 200 MG IV (15:51)
[2024-05-16 16:06] LABS: Glucose Point of Care 137 mg/dL (70-110)
[2024-05-16 16:07] LABS: Estmated Average Glucose 169; Hemoglobin A1C 7.5 % (4.0-6.0)
[2024-05-16 16:17] LABS: Chol HDL Ratio 2.33 mg/dL (1.0-5.00); Cholesterol 142 mg/dL (0-200); HDL Cholesterol 61 mg/dL (60-100); LDL Cholesterol Calculated 66 mg/dL (50-129); LDL HDL Ratio 1.08 RATIO (0.00-3.22); Thyroid Stimulating Hormone 1.31 uIU/mL (0.27-4.20); Triglycerides 74 mg/dL (0-150)
[2024-05-16 16:19] LABS: Hepatitis B Surface AB 67.1 (11.5-1000); Hepatitis B Surface Antigen Non-Reactive (Nonreactive); Hepatitis C Virus Antibody Reactive (Nonreactive)
--- NOTE | 2024-05-16 16:51 | PC.HD ---
Heparin 1000 units loading dose administered at 1639 via venous needle per broadcast operations manager's orders.
[2024-05-16 17:29] LABS: Glucose Point of Care 149 mg/dL (70-110)
--- NOTE | 2024-05-16 20:12 | PC.NURSE ---
Received report from channel business manager Stacie.
[2024-05-16 20:33] LABS: Glucose Point of Care 106 mg/dL (70-110)
[2024-05-16] MEDS: losartan 50 mg Tablet 100 MG PO (21:05)
[2024-05-16] MEDS: HYDROcodone-acetaminophen 5-325 mg Tablet 1 TAB PO (21:06)
[2024-05-17 00:57] VITALS: PULSE 71
[2024-05-17] MEDS: sodium chloride 0.9% 1,000 ML 100 ML IV (01:49)
[2024-05-17 04:00] VITALS: BP 165/89; PULSE 83; RESP 17; TEMP 36.6; O2SAT 96
[2024-05-17 04:44] LABS: Glucose Point of Care 204 mg/dL (70-110)
[2024-05-17 06:03] LABS: Basophils # 0.1 10^3/uL (0.0-0.1); Basophils % 1.1 %; Eosinophils # 0.2 10^3/uL (0.0-0.8); Eosinophils % 2.3 %; Hematocrit 34.6 % (37-53); Lymphocytes # 1.5 10^3/uL (0.8-4.8); Lymphocytes % 16.8 %; Mean Corpuscular HGB Conc 32.4 g/dL (30-55); Mean Corpuscular Hemoglobin 32.2 pg (27-33); Mean Corpuscular Volume 99.4 fl (82-101); Mean Platelet Volume 9.6 fL (7.4-10.4); Monocytes # 1.1 10^3/uL (0.2-0.9); Monocytes % 11.5 %; Neutrophils % 67.9 %; Nucleated Red Blood Cells % 0 %; Platelet Count 373 10^3/cmm (157-399); Red Blood Count 3.48 10^6/uL (3.85-5.65); Red Cell Distribution Width 14.4 % (12.1-15.1); White Blood Count 9.13 10^3/uL (3.29-11.43)
[2024-05-17 06:17] VITALS: PULSE 72
[2024-05-17 06:36] LABS: Glucose Point of Care 177 mg/dL (70-110)
[2024-05-17 06:37] LABS: Alanine Aminotransferase 45 U/L (0-41); Albumin Level 3.7 g/dL (3.5-5.2); Alkaline Phosphatase 144 U/L (40-130); Anion Gap 15.9 (5-19); Aspartate Amino Transferase 37 U/L (0-40); Blood Urea Nitrogen 42 mg/dL (6-20); Calcium 8.3 mg/dL (8.5-10.5); Carbon Dioxide 30 mmol/L (22-29); Chloride 101 mmol/L (98-107); Creatinine Clr Calc Pharmacy 14.5221; Globulin 3.3 g/dL (1.3-4.6); Glomerular Filtration Rate 9.8 mL/min (90-130); Glucose 182 mg/dL (65-115); Magnesium 2.1 mg/dL (1.7-2.3); Osmolality Calculated 309 mOsm/kg (285-295); Phosphorus 4.9 mg/dL (2.5-4.5); Potassium 4.9 mmol/L (3.5-5.1); Sodium 142 mmol/L (136-145); Total Bilirubin 0.4 mg/dL (0.15-1.2)
--- NOTE | 2024-05-17 07:28 | P.PN_ITS ---
Subjective 2 Subjective: The patient is feeling better. He still has periorbital and facial edema. No nausea or vomiting. Positive dyspnea on exertion no shortness of breath at rest. Otherwise review of systems is negative. Medications: Reviewed: Yes Medication Review Details: Current Medications Acetaminophen (Acetaminophen 325 Mg Tablet) 650 mg PO Q6H PRN PRN Reason: Mild/Mod Pain Or Temp >/= 101 Hydrocodone Bitart/Acetaminophen (Hydrocodone-Acetaminophen 5-325 Mg Tablet) 1 tab PO Q6H PRN PRN Reason: Pain Last Admin: 05/16/24 21:06 Dose: 1 tab Amlodipine Besylate (Amlodipine 10 Mg Tablet) 10 mg PO DAILY STONE Enoxaparin Sodium (Enoxaparin 30 Mg/0.3 Ml Syringe) 30 mg SUBCUT Q24H STONE Last Admin: 05/16/24 15:51 Dose: 30 mg Glucagon (Glucagon 1 Mg/Ml Kit 1 Ml) 1 mg IM ONCE PRN; Protocol PRN Reason: Adult Acute Hypoglycemia Nursing Prot. Sodium Chloride (Sodium Chloride 0.9%) 1,000 mls @ 100 mls/hr IV .Q10H STONE Last Admin: 05/17/24 01:49 Dose: 100 mls/hr Dextrose (D5w) 500 mls @ 0 mls/hr IV ONCE PRN; Protocol PRN Reason: Adult Acute Hypoglycemia Prot Dextrose (D10w) 125 mls @ 750 mls/hr IV PRN PRN; Protocol PRN Reason: Adult Acute Hypoglycemia Nursing Protocol Dextrose (D10w) 250 mls @ 1,000 mls/hr IV PRN PRN; Protocol PRN Reason: Adult Acute Hypoglycemia Nursing Protocol Ciprofloxacin/Dextrose (Cipro) 400 mg in 200 mls @ 200 mls/hr IV Q24H STONE; Protocol Last Infusion: 05/16/24 17:16 Dose: Infused Insulin Human Lispro (Insulin Lispro 100 Unit/1 Ml) 0 unit SUBCUT TIDWM STONE; Protocol Last Admin: 05/16/24 17:10 Dose: Not Given Losartan Potassium (Losartan 50 Mg Tablet) 100 mg PO BEDTIME STONE Last Admin: 05/16/24 21:05 Dose: 100 mg Ondansetron HCl (Ondansetron 2 Mg/Ml Sdv 2 Ml) 4 mg IVP Q6H PRN PRN Reason: NAUSEA AND VOMITING Vitals/I&O/Wt Last Vital Signs Temp 97.8 F 05/17/24 04:00 Pulse 72 05/17/24 06:17 Resp 17 05/17/24 04:00 BP 165/89 05/17/24 04:00 Pulse Ox 96 05/17/24 04:00 O2 Del Method Room Air 05/17/24 04:00 05/16/24 05/17/24 05/17/24 22:59 06:59 14:59 Intake Total 1583 / 2583 717 / 3300 Output Total 2500 / 2500 Balance -917 / 83 717 / 800 Weight last 48 hrs Weight 64.546 kg Weight 64.5 kg Weight 65.884 kg Weight 66.678 kg Physical Exam 2 Narrative: Patient lying in bed no respiratory distress. Vital signs noted. HEENT normocephalic atraumatic. Periorbital edema and facial swelling. Neck is supple Lungs clear. Heart regular with systolic murmur. Abdomen soft positive bowel sounds. Extremities right upper extremity AV fistula with good thrill and bruit. legs have no significant edema. Poor distal pulses. Positive toe amputations. Data 05/17/24 05:24 05/17/24 05:24 Micro: Microbiology 05/16/24 14:50 Blood Culture - Preliminary Blood SPECIMEN COLLECTED 05/16/24 14:52 Blood Culture - Preliminary Blood SPECIMEN COLLECTED A&P Assessment and plan (1) ESRD on dialysis: 43-year-old gentleman type 1 diabetes/insulin-dependent diabetes mellitus, hypertension, ESRD, heart failure preserved EF with severe diastolic dysfunction and restrictive filling pattern in 2021. Patient is here now with labile sugar. 1. Labile sugar as per medicine. Glucose has improved. 2. ESRD -continue dialysis on Wednesday 3. Moderate mitral regurgitation on repeat echo. Patient would benefit from cardiology evaluation this can be done in-house or as an outpatient. Patient has grade 1 out of 4 diastolic dysfunction and elevated filling pressures. EF over 50%. 4. Abnormal urinalysis noted patient only has 0-4 white cells and 25-40 RBCs this does not appear like a UTI. Please ensure the patient sees urology this can be done as an outpatient. 5. Hemoglobin appears appropriate. 6. Patient has known hepatitis C when we saw him in the summer 2021 his viral load was as high as 2,540,000. Further evaluation as per his primary care. 7. phos okay Patient was seen and examined using audiovisual equipment with the aid of his nurse. Patient consents to telehealth and to dialysis. Plan See above. Attestations 2 Medical Necessity Statement*: per medicine Time Spent in Patient Care: 16 - 35 minutes (>than 50% of time sp ent in counselling and/or direct pt care on unit) . Coding Level of Care Code Acute Code for g Fwd Diagnoses ESRD on dialysis N18.6; Z99.2
[2024-05-17] MEDS: insulin lispro 100 unit/1 mL SUBCUT ×2 (07:32→11:46)
[2024-05-17 08:00] VITALS: BP 163/79; PULSE 83; RESP 17; TEMP 36.8; O2SAT 95
[2024-05-17] MEDS: amlodipine 10 mg Tablet PO (08:43)
[2024-05-17 10:47] LABS: Glucose Point of Care 237 mg/dL (70-110)
--- NOTE | 2024-05-17 11:27 | PM.DCS ---
Discharge Providers Date of Admission: 05/16/24 14:40 Date of Discharge: May 17, 2024 Attending Provider at Admission: Meek Vazquez MD Attending Provider at Discharge: Meek Vazquez MD Primary Care Provider: Amrit Antoine MD Diagnoses at Discharge Discharge Diagnosis (1) ESRD on dialysis: Status: Inactive Reason for Visit Reason for Visit: [facility] Hospital Course Hospital Course Fabián Ortiz Jr is a 43 year old male with a past medical show type 1 diabetes mellitus, history of end-stage renal disease on dialysis, who presents to [facility] as he has not been feeling well for the last few days, no fevers, no chills, but does have fatigue, malaise, no nausea, no vomiting, no abdominal pain, no diarrhea, has a history of diabetic ulcers but no significant worsening, he does tell me for the last few days he has blood sugars have been fluctuating, this morning he did have breakfast, he took 20 units of his sliding scale, he does take 12 units of Toujeo at bedtime, he went to dialysis, he does not report any significant worsening of his symptomatology just general fatigue, malaise his blood sugar was low reading in the 50s, so he was given oral glucose, once EMS arrived his blood sugar was over 500, he had nausea, vomiting, so they presented the patient to the emergency room, currently he is alert oriented x 3, following all commands a bit drowsy, nausea and vomiting is under control, he did not receive dialysis, denies any lightheadedness, dizziness, no chest pain, no palpitations, no shortness of breath, Patient was admitted to [facility] for fluctuating blood sugars, monitored as inpatient received IV fluids, blood sugars improved, will be discharged on a insulin sliding scale, with 10 units units of Toujeo at bedtime, patient was advised to monitor blood sugars closely, record them in a blood sugar log, bring them to her primary care physician's office, if any blood sugar greater than 500 call primary care or come to the emergency room if any blood sugar less than 60 drink or juice or eat hard candy go to the emergency room. End-stage renal disease missed dialysis received inpatient dialysis For UTI received IV antibiotics, discharged on p.o. antibiotics Patient has diabetic ulcers on his bilateral extremities, healing well, on examination ulcerations of the left and right foot, bilaterally, digits, areas look clean and dry, healing well, continue wound care, continue to follow-up with Dr. Ch Physical Exam Const: COMMON NORMALS: no acute distress and patient oriented x3 Resp: COMMON NORMALS: normal respiratory effort, No retractions, No use of accessory muscles and clear to auscultation bilaterally AUSCULTATION: clear to auscultation bilaterally Cardio: COMMON NORMALS: regular rate, regular rhythm, S1 normal heart sound present and S2 normal heart sound present RATE: regular rate RHYTHM: regular rhythm HEART SOUNDS: S1 normal heart sound present and S2 normal heart sound present GI: COMMON NORMALS: Normal to inspection, nondistended, normoactive bowel sounds present and non-tender Extremity: COMMON NORMALS: no pedal edema Neuro: COMMON NORMALS: patient oriented x3 Psych: COMMON NORMALS: mental status grossly normal Discharge Data Studies Completed and Pending Completed Studies During Hospitalization Category Date Time Status XR chest 1V portable [id number] Urgent Exams 05/16/24 10:47 Completed CV. echo complete* [id number] Urgent Ultrasound 05/16/24 14:31 Completed Pending at discharge Category Date Time Status Blood Culture Stat Lab 05/16/24 14:50 Results Comprehensive Metabolic Panel AM LABS Lab 05/18/24 04:00 Ordered Comprehensive Metabolic Panel AM LABS Lab 05/19/24 04:00 Ordered HEP C RNA Viral Load Qnt [Hepatitis C RNA Viral Load Lab 05/16/24 15:29 Received Qnt] Routine Magnesium AM LABS Lab 05/18/24 04:00 Ordered Magnesium AM LABS Lab 05/19/24 04:00 Ordered Phosphorus AM LABS Lab 05/18/24 04:00 Ordered Phosphorus AM LABS Lab 05/19/24 04:00 Ordered Radiology Impressions Chest X-Ray 05/16/24 10:47 IMPRESSION: New 4 cm soft tissue mass in the right mid lung projecting over the superior right pulmonary hilum. This should be further evaluated with CT of the chest. Laboratory Results WBC 9.13 10^3/uL (3.29-11.43) 05/17/24 05:24 RBC 3.48 10^6/uL (3.85-5.65) L 05/17/24 05:24 Hgb 11.20 g/dL (11.27-16.99) L 05/17/24 05:24 Hct 34.6 % (37-53) L 05/17/24 05:24 MCV 99.4 fl (82-101) 05/17/24 05:24 MCH 32.2 pg (27-33) 05/17/24 05:24 MCHC 32.4 g/dL (30-55) 05/17/24 05:24 RDW 14.4 % (12.1-15.1) 05/17/24 05:24 Plt Count 373 10^3/cmm (157-399) 05/17/24 05:24 MPV 9.6 fL (7.4-10.4) 05/17/24 05:24 Neut % (Auto) 67.9 % 05/17/24 05:24 Lymph % (Auto) 16.8 % 05/17/24 05:24 Chaves % (Auto) 11.5 % 05/17/24 05:24 Eos % (Auto) 2.3 % 05/17/24 05:24 Baso % (Auto) 1.1 % 05/17/24 05:24 Neut # (Auto) 6.20 10^3/uL (1.8-7.7) 05/17/24 05:24 Lymph # (Auto) 1.5 10^3/uL (0.8-4.8) 05/17/24 05:24 Chaves # (Auto) 1.1 10^3/uL (0.2-0.9) H 05/17/24 05:24 Eos # (Auto) 0.2 10^3/uL (0.0-0.8) 05/17/24 05:24 Baso # (Auto) 0.1 10^3/uL (0.0-0.1) 05/17/24 05:24 Nucleated RBC % (auto) 0 % 05/17/24 05:24 Nucleated RBCs # 0.0 /100WBC 05/17/24 05:24 ESR 44 mm/hr (0-10) H 05/16/24 11:32 Specimen Type Arterial 05/16/24 11:35 Sample Site Brachial, left 05/16/24 11:35 ABG pH 7.36 (7.35-7.45) 05/16/24 11:35 ABG pCO2 51.5 mmHg (35-45) H 05/16/24 11:35 ABG pO2 80.7 mmHg (80.0-100.0) 05/16/24 11:35 ABG HCO3 28.8 mmol/L (22-26) H 05/16/24 11:35 ABG O2 Saturation 93.6 05/16/24 11:35 ABG Base Excess 2.5 mmol/L (-2.0-2.0) H 05/16/24 11:35 Santosh Test N/a 05/16/24 11:35 A-a O2 Gradient 0.8 mmHg (5-10) L 05/16/24 11:35 Hematocrit 34.9 % (42-52) L 05/16/24 11:35 Hgb O2 Saturation 92.3 % (95-100) L 05/16/24 11:35 Carboxyhemoglobin < 0.3 %THgb (0.4-20.1) L 05/16/24 11:35 Methemoglobin 1.4 % (0.4-1.5) 05/16/24 11:35 Total Hemoglobin 11.4 g/dL (14-18) L 05/16/24 11:35 Sodium 140.0 mmol/L (131-143) 05/16/24 11:35 Potassium 5.0 mmol/L (3.5-5.0) 05/16/24 11:35 Glucose 503.0 mg/dL (70-115) H 05/16/24 11:35 Ionized Calcium 1.2 mmol/L (1.1-1.4) 05/16/24 11:35 O2 Delivery Device Room air 05/16/24 11:35 Director Of Promotions ID Gd 05/16/24 11:35 Sodium 142 mmol/L (136-145) 05/17/24 05:24 Potassium 4.9 mmol/L (3.5-5.1) 05/17/24 05:24 Chloride 101 mmol/L (98-107) 05/17/24 05:24 Carbon Dioxide 30 mmol/L (22-29) H 05/17/24 05:24 Anion Gap 15.9 (5-19) 05/17/24 05:24 BUN 42 mg/dL (6-20) H 05/17/24 05:24 Creatinine 6.2 mg/dL (0.7-1.2) H* 05/17/24 05:24 GFR Calculation 9.8 mL/min (90-130) L 05/17/24 05:24 Glucose 182 mg/dL (65-115) H 05/17/24 05:24 POC Glucose 237 mg/dL (70-110) H 05/17/24 10:42 Estimat Average Glucose 169 05/16/24 11:32 Hemoglobin A1c 7.5 % (4.0-6.0) H 05/16/24 11:32 Calculated Osmolality 309 mOsm/kg (285-295) H 05/17/24 05:24 Lactic Acid 1.5 mmol/L (0.5-2.2) 05/16/24 11:32 Calcium 8.3 mg/dL (8.5-10.5) L 05/17/24 05:24 Phosphorus 4.9 mg/dL (2.5-4.5) H 05/17/24 05:24 Magnesium 2.1 mg/dL (1.7-2.3) 05/17/24 05:24 Total Bilirubin 0.4 mg/dL (0.15-1.2) 05/17/24 05:24 AST 37 U/L (0-40) 05/17/24 05:24 ALT 45 U/L (0-41) H 05/17/24 05:24 Alkaline Phosphatase 144 U/L (40-130) H 05/17/24 05:24 C-Reactive Protein 3.5 mg/L (0.0-4.9) 05/16/24 11:32 Total Protein 7.0 g/dL (6.6-8.7) 05/17/24 05:24 Albumin 3.7 g/dL (3.5-5.2) 05/17/24 05:24 Globulin 3.3 g/dL (1.3-4.6) 05/17/24 05:24 Triglycerides 74 mg/dL (0-150) 05/16/24 11:32 Cholesterol 142 mg/dL (0-200) 05/16/24 11:32 LDL Cholesterol, Calc 66 mg/dL (50-129) 05/16/24 11:32 HDL Cholesterol 61 mg/dL (60-100) 05/16/24 11:32 LDL/HDL Ratio 1.08 RATIO (0.00-3.22) 05/16/24 11:32 Cholesterol/HDL Ratio 2.33 mg/dL (1.0-5.00) 05/16/24 11:32 Lipase 43 U/L (13-60) 05/16/24 11:32 Procalcitonin 0.68 ng/mL (0-0.5) H 05/16/24 11:32 TSH 1.31 uIU/mL (0.27-4.20) 05/16/24 11:32 Urine Color Yellow (Yellow) 05/16/24 10:30 Urine Appearance Cloudy (CLEAR) A 05/16/24 10:30 Urine pH 8.5 (5-7) A 05/16/24 10:30 Ur Specific Levan 1.016 (1.005-1.030) 05/16/24 10:30 Urine Protein 3+ (Negative) A 05/16/24 10:30 Urine Glucose (UA) 3+ (Normal) H 05/16/24 10:30 Urine Ketones Negative (Negative) 05/16/24 10:30 Urine Blood Trace (Negative) A 05/16/24 10:30 Urine Nitrate Negative (Negative) 05/16/24 10:30 Urine Bilirubin Negative (Negative) 05/16/24 10:30 Urine Urobilinogen 0.2 mg/dL (Negative) 05/16/24 10:30 Ur Leukocyte Esterase Negative (Negative) 05/16/24 10:30 Urine RBC 25-40 /hpf (0-2) H 05/16/24 10:30 Urine WBC 0-4 /hpf (0-5) H 05/16/24 10:30 Ur Squamous Epith Cells 0-4 /hpf (0-5) H 05/16/24 10:30 Amorphous Sediment Not Reportable 05/16/24 10:30 Urine Bacteria Trace /hpf (NONE) 05/16/24 10:30 Hyaline Casts 5-10 /lpf H 05/16/24 10:30 Urine Mucus 1+ /hpf 05/16/24 10:30 Urine Sperm 4+ /hpf 05/16/24 10:30 Ur Oval Fat Bodies 1+ /hpf 05/16/24 10:30 Urine Opiates Screen Positive ng/mL (Negative) H 05/16/24 10:30 Ur Barbiturates Screen Negative ng/mL (Negative) 05/16/24 10:30 Ur Phencyclidine Scrn Negative ng/mL (Negative) 05/16/24 10:30 Ur Amphetamines Screen Negative ng/mL (Negative) 05/16/24 10:30 U Benzodiazepines Scrn Negative ng/mL (Negative) 05/16/24 10:30 Urine Cocaine Screen Negative ng/mL (Negative) 05/16/24 10:30 U Marijuana (THC) Screen Negative ng/mL (Negative) 05/16/24 10:30 Ethyl Alcohol < 10 mg/dL (0-10) 05/16/24 11:32 Serum Ketones Negative (Negative) 05/16/24 11:32 Hep Bs Antigen Non-reactive (Nonreactive) 05/16/24 11:32 Hep Bs Antibody 67.1 (11.5-1000) 05/16/24 11:32 Hepatitis C Antibody Reactive (Nonreactive) H 05/16/24 11:32 HCV RNA Qnt PCR Amp&Det Cancelled 05/16/24 16:59 HCV RNA (PCR) IUs/ml Cancelled 05/16/24 16:59 HCV RNA (PCR) IU log10 Cancelled 05/16/24 16:59 Vitals Last Vital Signs Temp 98.2 F 05/17/24 08:00 Pulse 83 05/17/24 08:00 Resp 17 05/17/24 08:00 BP 163/79 05/17/24 08:00 Pulse Ox 95 05/17/24 08:00 O2 Del Method Room Air 05/17/24 08:00 Discharge Plan Discharge Patient Disposition: Home Condition: Stable Prescriptions: New ciprofloxacin HCl 250 mg tablet 250 mg PO DAILY 5 Days Qty: 5 0RF Continued (DME) Diabetic shoes with custom accommodative orthotics See Rx Instructions .Route .MEDSUPPLY Qty: 1 0RF Rx Instructions: As directed by the josefina stein hydrocodone-acetaminophen 5-325 mg tablet 1 tab PO Q6H PRN (Reason: Pain) 30 Days Qty: 120 0RF losartan 50 mg tablet 100 mg PO .HS amlodipine 10 mg tablet 10 mg PO DAILY FreeStyle Alicia 14 Day Sensor Kit See Rx Instructions .ROUTE .COMPLEX Qty: 1 11RF Dose Instruction: USE DIRECTED. Rx Instructions: USE DIRECTED. furosemide 80 mg tablet 80 mg PO DAILY mirtazapine 15 mg tablet 15 mg PO BEDTIME Changed insulin lispro [Humalog KwikPen Insulin] 100 unit/mL insulin pen See Rx Instructions .ROUTE .COMPLEX 30 Days Qty: 15 11RF Rx Instructions: Inject, subcut, 3 times daily, after meals, based on sliding scale provided insulin glargine U-300 conc [Toujeo SoloStar U-300 Insulin] 300 unit/mL (1.5 mL) insulin pen 10 unit SUBCUT BEDTIME Qty: 4.5 0RF Discharge Orders: Discharge Order (Routine); Ordered 05/17/24 Ordered By: Meek Vazquez Referrals: Amrit Antoine MD [Primary Care Provider] - (We have notified your physician's clinic of the need for a follow-up appointment to be scheduled. If you have not heard from them within the next 2 business days, please call them directly. ) Discharge Diet: Diabetic Discharge Activity: Resume usual activity Patient Instructions: Hyperglycemia, Chronic Kidney Disease (DC), Opioid Safety Activity Restrictions/Additional Instructions: -Please monitor your blood sugars closely -Monitor your blood sugars 3 times daily as after meals -Please record your blood sugars, and a blood sugar log -For your humalog -Please inject blood sugar after meals based on sliding scale provided -Do not inject insulin if you do not eat as hypoglycemia kills -This is a humalog sliding scale -Insulin sliding ?fingerstick? Insulin ?141-180?0 units/sq 181-220?2 units/sq ?221-260?4 units/sq ?261-300 6 units/sq ?301-350?8 units/sq ?351-400 10 units/sq ?401-450?12 units/sq >450? 14units/sq -If your blood sugar is greater than 500 go to the emergency room -If your blood sugar is less than 60 or at anytime you feel lightheaded or dizzy or diaphoretic or have chest palpitations check your blood sugar, and eat a hard candy or drink orange juice and go immediately to the emergency room -Remember hypoglycemia kills, so if his blood sugar is less than 60 we have to increase it by taking in a sugary meal such as a hard candy or orange juice and go to the emergency room -If you have any questions please call us where here to help -Decrease your Toujeo to 10 units at bedtime Discharge Attestations Time Spent in Discharge Care*: greater than 30 min Quality Metrics Clinical Quality Measures [ No reported AMI, CVA or VTE this stay] Coding Level of Care Code 34856 Total time (in minutes) for Discharge: 45 Diagnoses ESRD on dialysis N18.6; Z99.2
[2024-05-17 11:42] VITALS: BP 151/76; PULSE 85; RESP 18; TEMP 36.8; O2SAT 95
--- NOTE | 2024-05-17 11:56 | PC.SOCIAL ---
Discharge orders faxed to [facility] at this time
[2024-05-17 12:04] VITALS: BP 151/76; PULSE 85; RESP 18; TEMP 36.8; O2SAT 95
--- NOTE | 2024-05-17 13:03 | PC.NURSE ---
1230-Pt ride is here. Escorted to private vehicle via wheelchair with all belongings.
[2024-05-19 15:39] LABS: HEP C RNA Viral Load Quant 1730000 IU/mL (NOT DETECTED); HEP C RNA Viral Load Quant 6.24 Log IU/mL (NOT DETECTED)
== END 2024-05-17 12:30 | disposition home or self-care (01) ==
LOC: ER 13:41 → MEDSURG 14:40
PROVIDERS: Internal Medicine Nephrology; Admitting Provider Family Medicine; Emergency Provider Physician Assistant; PCP Family Medicine; Visit Provider Family Medicine
DX: E10.22 Type 1 diabetes mellitus with diabetic chronic kidney disease (principal); N18.6 End stage renal disease; Z99.2 Dependence on renal dialysis; R82.90 Unspecified abnormal findings in urine; B19.20 Unspecified viral hepatitis C without hepatic coma; I34.0 Nonrheumatic mitral (valve) insufficiency; E10.51 Type 1 diabetes mellitus with diabetic peripheral angiopathy without gangrene; Z79.4 Long term (current) use of insulin; D63.1 Anemia in chronic kidney disease; F32.A Depression, unspecified
CPT/HCPCS: 36415; 36416; 36600; 71045; 80051; 80053; 80061; 80306; 80307; 81001; 82009; 82330; 82805; 82962; 83036; 83605; 83690; 83735; 84100; 84145; 84443; 85025; 85651; 86140; 86706; 86803; 87040; 87340; 87522; 90935; 93005; 93306; 94664; 96365; 96372; 96375; 96376; 99285; G0378; J0744; J1650; J1815; J2060; J7030

== ENCOUNTER 2024-06-06 13:01 | Outpatient (CLI) | payer MEDICARE, MEDICAID, SELFPAY ==
--- NOTE | 2024-06-06 13:04 | XRR_ITS ---
PROCEDURE INFORMATION: Exam: XR Chest Exam date and time: 06/06/2024 1:09 PM Age: 43 years old Clinical indication: Shortness of breath; Prior surgery; Surgery date: 6+ months; Surgery type: Hemo dialysis cath; Patient HX: Follow up after hospital stay, HX of lethargy w SOB; Additional info: soft tissue mass right lung/lingula: No clinical HX. TECHNIQUE: Imaging protocol: Radiologic exam of the chest. Views: 2 views. COMPARISON: CR XR chest 1V portable [id number] 05/16/2024 12:56 PM FINDINGS: Lungs: Decreased right suprahilar opacity. Pleural spaces: Unremarkable. No pleural effusion. No pneumothorax. Heart/Mediastinum: Unremarkable. No cardiomegaly. Bones/joints: Unremarkable. Intraperitoneal space: Right upper abdomen surgical clips. XR/XR chest 2V* [id number] IMPRESSION: Decreased right suprahilar opacity. Recommend imaging follow-up to resolution, consideration for chest CT.
== END 2024-06-06 13:02 | disposition home or self-care (01) ==
LOC: RAD 13:03
PROVIDERS: PCP Family Medicine; Visit Provider Family Medicine
DX: R91.8 Other nonspecific abnormal finding of lung field (principal)
CPT/HCPCS: 71046

== ENCOUNTER → 2024-06-14 08:27 | Outpatient (BNVA) | payer MEDICARE, MEDICAID, SELFPAY | PROVIDERS: PCP Family Medicine; Visit Provider Podiatrist Foot & Ankle Surgery | DX: E11.621 Type 2 diabetes mellitus with foot ulcer; L97.522 Non-pressure chronic ulcer of other part of left foot with fat layer exposed; E11.42 Type 2 diabetes mellitus with diabetic polyneuropathy; N18.6 End stage renal disease; Z99.2 Dependence on renal dialysis; Z89.421 Acquired absence of other right toe(s); Z89.411 Acquired absence of right great toe; Z79.4 Long term (current) use of insulin | CPT/HCPCS: 99213 ==

== ENCOUNTER → 2024-07-26 07:55 | Outpatient (BNVA) | payer MEDICARE, MEDICAID, SELFPAY | PROVIDERS: PCP Family Medicine; Visit Provider Podiatrist Foot & Ankle Surgery | DX: E11.42 Type 2 diabetes mellitus with diabetic polyneuropathy; N18.6 End stage renal disease; Z99.2 Dependence on renal dialysis; E11.621 Type 2 diabetes mellitus with foot ulcer; L97.522 Non-pressure chronic ulcer of other part of left foot with fat layer exposed; Z89.421 Acquired absence of other right toe(s); Z89.411 Acquired absence of right great toe; Z79.4 Long term (current) use of insulin | CPT/HCPCS: 99213 ==

== ENCOUNTER → 2024-08-16 07:10 | Outpatient (BNVA) | payer MEDICARE, MEDICAID, SELFPAY | PROVIDERS: PCP Family Medicine; Visit Provider Podiatrist Foot & Ankle Surgery | DX: E11.42 Type 2 diabetes mellitus with diabetic polyneuropathy; N18.6 End stage renal disease; Z99.2 Dependence on renal dialysis; L97.522 Non-pressure chronic ulcer of other part of left foot with fat layer exposed; E11.621 Type 2 diabetes mellitus with foot ulcer; Z89.421 Acquired absence of other right toe(s); Z89.411 Acquired absence of right great toe; Z79.4 Long term (current) use of insulin | CPT/HCPCS: 99213 ==

== ENCOUNTER → 2024-08-30 07:21 | Outpatient (BNVA) | payer MEDICARE, MEDICAID, SELFPAY | PROVIDERS: PCP Family Medicine; Visit Provider Podiatrist Foot & Ankle Surgery | DX: E11.42 Type 2 diabetes mellitus with diabetic polyneuropathy; N18.6 End stage renal disease; Z99.2 Dependence on renal dialysis; E11.621 Type 2 diabetes mellitus with foot ulcer; L97.522 Non-pressure chronic ulcer of other part of left foot with fat layer exposed; Z89.421 Acquired absence of other right toe(s); Z89.411 Acquired absence of right great toe; Z79.4 Long term (current) use of insulin | CPT/HCPCS: 99213 ==

== ENCOUNTER 2024-09-18 09:32 | Outpatient (CLI) | payer MEDICARE, MEDICAID, SELFPAY ==
[2024-09-18 10:18] LABS: Alanine Aminotransferase 24 U/L (0-41); Albumin Level 4.1 g/dL (3.5-5.2); Alkaline Phosphatase 128 U/L (40-130); Anion Gap 16.3 (5-19); Aspartate Amino Transferase 21 U/L (0-40); Blood Urea Nitrogen 54 mg/dL (6-20); Calcium 9.7 mg/dL (8.5-10.5); Carbon Dioxide 29 mmol/L (22-29); Chloride 97 mmol/L (98-107); Globulin 3.3 g/dL (1.3-4.6); Glomerular Filtration Rate 9.3 mL/min (90-130); Glucose 193 mg/dL (65-115); Osmolality Calculated 304 mOsm/kg (285-295); Potassium 5.3 mmol/L (3.5-5.1); Sodium 137 mmol/L (136-145); Total Bilirubin 0.6 mg/dL (0.15-1.2); Total Protein 7.4 g/dL (6.6-8.7)
== END 2024-09-18 09:33 | disposition home or self-care (01) ==
LOC: LAB 09:35
PROVIDERS: PCP Family Medicine; Visit Provider Internal Medicine
DX: B19.20 Unspecified viral hepatitis C without hepatic coma (principal)
CPT/HCPCS: 36415; 80053; 87522

== ENCOUNTER → 2024-10-02 08:41 | Outpatient (BNVA) | payer MEDICARE, MEDICAID, SELFPAY | PROVIDERS: PCP Family Medicine; Visit Provider Podiatrist Foot & Ankle Surgery | DX: E11.42 Type 2 diabetes mellitus with diabetic polyneuropathy (principal); N18.6 End stage renal disease; Z99.2 Dependence on renal dialysis; E11.621 Type 2 diabetes mellitus with foot ulcer; L97.522 Non-pressure chronic ulcer of other part of left foot with fat layer exposed; Z89.421 Acquired absence of other right toe(s); Z89.411 Acquired absence of right great toe; Z79.4 Long term (current) use of insulin | CPT/HCPCS: 99213 ==

== ENCOUNTER → 2024-10-16 07:46 | Outpatient (BNVA) | payer MEDICARE, MEDICAID, SELFPAY | PROVIDERS: PCP Family Medicine; Visit Provider Podiatrist Foot & Ankle Surgery | DX: E11.621 Type 2 diabetes mellitus with foot ulcer (principal); L97.522 Non-pressure chronic ulcer of other part of left foot with fat layer exposed; E11.42 Type 2 diabetes mellitus with diabetic polyneuropathy; N18.6 End stage renal disease; Z99.2 Dependence on renal dialysis; Z89.411 Acquired absence of right great toe; Z89.421 Acquired absence of other right toe(s) | CPT/HCPCS: 99213 ==

== ENCOUNTER → 2024-11-01 06:32 | Outpatient (BNVA) | payer MEDICARE, MEDICAID, SELFPAY | PROVIDERS: PCP Family Medicine; Visit Provider Podiatrist Foot & Ankle Surgery | DX: E11.621 Type 2 diabetes mellitus with foot ulcer (principal); L97.522 Non-pressure chronic ulcer of other part of left foot with fat layer exposed; E11.42 Type 2 diabetes mellitus with diabetic polyneuropathy; N18.6 End stage renal disease; Z99.2 Dependence on renal dialysis; Z89.421 Acquired absence of other right toe(s); Z89.411 Acquired absence of right great toe; Z79.4 Long term (current) use of insulin | CPT/HCPCS: 11042 ==

== ENCOUNTER → 2024-11-15 07:28 | Outpatient (BNVA) | payer MEDICARE, MEDICAID, SELFPAY | PROVIDERS: PCP Family Medicine; Visit Provider Podiatrist Foot & Ankle Surgery | DX: L97.522 Non-pressure chronic ulcer of other part of left foot with fat layer exposed (principal) | CPT/HCPCS: 87070; 87075; 87205 ==

== ENCOUNTER → 2024-11-29 06:58 | Outpatient (BNVA) | payer MEDICARE, MEDICAID, SELFPAY | PROVIDERS: PCP Family Medicine; Visit Provider Podiatrist Foot & Ankle Surgery | DX: E11.42 Type 2 diabetes mellitus with diabetic polyneuropathy (principal); N18.6 End stage renal disease; Z99.2 Dependence on renal dialysis; L97.522 Non-pressure chronic ulcer of other part of left foot with fat layer exposed; L97.511 Non-pressure chronic ulcer of other part of right foot limited to breakdown of skin; E11.621 Type 2 diabetes mellitus with foot ulcer; Z89.421 Acquired absence of other right toe(s); Z89.411 Acquired absence of right great toe; Z79.4 Long term (current) use of insulin | CPT/HCPCS: 99213 ==

== ENCOUNTER → 2024-12-20 06:43 | Outpatient (BNVA) | payer MEDICARE, MEDICAID, SELFPAY | PROVIDERS: PCP Family Medicine; Visit Provider Podiatrist Foot & Ankle Surgery | DX: E11.42 Type 2 diabetes mellitus with diabetic polyneuropathy (principal); N18.6 End stage renal disease; Z99.2 Dependence on renal dialysis; E11.621 Type 2 diabetes mellitus with foot ulcer; L97.522 Non-pressure chronic ulcer of other part of left foot with fat layer exposed; L97.511 Non-pressure chronic ulcer of other part of right foot limited to breakdown of skin; Z89.421 Acquired absence of other right toe(s); Z89.411 Acquired absence of right great toe; Z79.4 Long term (current) use of insulin | CPT/HCPCS: 99213 ==

== ENCOUNTER → 2025-01-10 06:59 | Outpatient (BNVA) | payer MEDICARE, MEDICAID, SELFPAY | PROVIDERS: PCP Family Medicine; Visit Provider Podiatrist Foot & Ankle Surgery | DX: E11.42 Type 2 diabetes mellitus with diabetic polyneuropathy (principal); N18.6 End stage renal disease; Z99.2 Dependence on renal dialysis; L97.522 Non-pressure chronic ulcer of other part of left foot with fat layer exposed; L97.511 Non-pressure chronic ulcer of other part of right foot limited to breakdown of skin; E11.621 Type 2 diabetes mellitus with foot ulcer; Z89.411 Acquired absence of right great toe; Z89.421 Acquired absence of other right toe(s); Z79.4 Long term (current) use of insulin | CPT/HCPCS: 99213 ==

== ENCOUNTER → 2025-01-31 07:02 | Outpatient (BNVA) | payer MEDICARE, MEDICAID, SELFPAY | PROVIDERS: PCP Family Medicine; Visit Provider Podiatrist Foot & Ankle Surgery | DX: E11.621 Type 2 diabetes mellitus with foot ulcer (principal); L97.522 Non-pressure chronic ulcer of other part of left foot with fat layer exposed; L97.511 Non-pressure chronic ulcer of other part of right foot limited to breakdown of skin; E11.42 Type 2 diabetes mellitus with diabetic polyneuropathy; N18.6 End stage renal disease; Z99.2 Dependence on renal dialysis; E11.622 Type 2 diabetes mellitus with other skin ulcer; L97.322 Non-pressure chronic ulcer of left ankle with fat layer exposed; L03.116 Cellulitis of left lower limb; Z89.421 Acquired absence of other right toe(s); Z89.411 Acquired absence of right great toe; Z79.4 Long term (current) use of insulin | CPT/HCPCS: 11042; 99214 ==

== ENCOUNTER → 2025-02-14 10:05 | Outpatient (BNVA) | payer MEDICARE, MEDICAID, SELFPAY | PROVIDERS: PCP Family Medicine; Visit Provider Podiatrist Foot & Ankle Surgery | DX: E11.621 Type 2 diabetes mellitus with foot ulcer (principal); L97.511 Non-pressure chronic ulcer of other part of right foot limited to breakdown of skin; L97.522 Non-pressure chronic ulcer of other part of left foot with fat layer exposed; L97.322 Non-pressure chronic ulcer of left ankle with fat layer exposed; E11.42 Type 2 diabetes mellitus with diabetic polyneuropathy; N18.6 End stage renal disease; Z99.2 Dependence on renal dialysis; L03.116 Cellulitis of left lower limb; Z89.411 Acquired absence of right great toe; Z89.421 Acquired absence of other right toe(s); Z79.4 Long term (current) use of insulin | CPT/HCPCS: 11042 ==

== ENCOUNTER → 2025-02-28 09:19 | Outpatient (BNVA) | payer MEDICARE, MEDICAID, SELFPAY | PROVIDERS: PCP Family Medicine; Visit Provider Podiatrist Foot & Ankle Surgery | DX: E11.42 Type 2 diabetes mellitus with diabetic polyneuropathy (principal); N18.6 End stage renal disease; Z99.2 Dependence on renal dialysis; E11.621 Type 2 diabetes mellitus with foot ulcer; L97.511 Non-pressure chronic ulcer of other part of right foot limited to breakdown of skin; L97.322 Non-pressure chronic ulcer of left ankle with fat layer exposed; Z89.421 Acquired absence of other right toe(s); Z89.411 Acquired absence of right great toe; Z79.4 Long term (current) use of insulin | CPT/HCPCS: 99213 ==

== ENCOUNTER 2025-03-21 10:41 | Outpatient (CLI) | payer OTHER, MEDICAID, SELFPAY | END 2025-03-21 10:42 | disposition home or self-care (01) | PROVIDERS: PCP Family Medicine; Visit Provider Internal Medicine | DX: E11.621 Type 2 diabetes mellitus with foot ulcer (principal); Z89.421 Acquired absence of other right toe(s); Z89.411 Acquired absence of right great toe; E11.42 Type 2 diabetes mellitus with diabetic polyneuropathy; N18.6 End stage renal disease; Z99.2 Dependence on renal dialysis; L97.511 Non-pressure chronic ulcer of other part of right foot limited to breakdown of skin; L97.322 Non-pressure chronic ulcer of left ankle with fat layer exposed; Z79.4 Long term (current) use of insulin; B19.20 Unspecified viral hepatitis C without hepatic coma | CPT/HCPCS: 36415; 80053; 85025; 85610; 87522; 99213 ==

== ENCOUNTER 2025-04-04 08:29 | Outpatient (CLI) | payer OTHER, MEDICAID, SELFPAY ==
--- NOTE | 2025-04-04 11:44 | CTR_ITS ---
PROCEDURE INFORMATION: Exam: CT Chest Without Contrast; Diagnostic Exam date and time: 04/04/2025 10:24 AM Age: 44 years old Clinical indication: Abnormal radiologic exam of lung or chest; Prior surgery; Surgery date: 6+ months; Surgery type: Dialysis in RT arm; Abnormal findings on xray, being put on a transplant list for kidney and pancreas; Additional info: Z76.82 - awaiting organ transplant status TECHNIQUE: Imaging protocol: Diagnostic computed tomography of the chest without contrast. Radiation optimization: All CT scans at this facility use at least one of these dose optimization techniques: automated exposure control; mA and/or kV adjustment per patient size (includes targeted exams where dose is matched to clinical indication); or iterative reconstruction. COMPARISON: CR XR chest 2V* [id number] 06/06/2024 1:09 PM RADIATION DOSE METRICS: Total DLP (mGy-cm): 272.42 FINDINGS: Tubes, catheters and devices: Surgical clips in the right upper quadrant. Lungs: Focal linear opacity in the right upper lobe superior segment extending to the major fissure. Pleural spaces: Unremarkable. No pneumothorax. No pleural effusion. Heart: Minimal coronary calcifications. No cardiomegaly. No pericardial effusion. Lymph nodes: Unremarkable. No enlarged lymph nodes. Vasculature: Unremarkable. No aortic aneurysm. Bones/joints: Unremarkable. No acute fracture. Soft tissues: Suggestion right anterior chest wall varices. CT/CT chest con [id number] IMPRESSION: Focal linear scar or discoid atelectasis in the superior segment of the right lower lobe.
== END 2025-04-04 08:30 | disposition home or self-care (01) ==
LOC: RAD 08:30
PROVIDERS: PCP Family Medicine; Visit Provider Family Medicine
DX: Z76.82 Awaiting organ transplant status (principal); Z97.8 Presence of other specified devices; J98.11 Atelectasis
CPT/HCPCS: 71250

== ENCOUNTER → 2025-04-18 06:52 | Outpatient (BNVA) | payer MEDICAID, SELFPAY | PROVIDERS: PCP Family Medicine; Visit Provider Podiatrist Foot & Ankle Surgery | DX: E11.42 Type 2 diabetes mellitus with diabetic polyneuropathy (principal); N18.6 End stage renal disease; Z99.2 Dependence on renal dialysis; E11.621 Type 2 diabetes mellitus with foot ulcer; L97.511 Non-pressure chronic ulcer of other part of right foot limited to breakdown of skin; L97.322 Non-pressure chronic ulcer of left ankle with fat layer exposed; Z89.421 Acquired absence of other right toe(s); Z89.412 Acquired absence of left great toe; Z79.4 Long term (current) use of insulin | CPT/HCPCS: 99213 ==

== ENCOUNTER → 2025-05-16 07:29 | Outpatient (BNVA) | payer OTHER, MEDICAID, SELFPAY | PROVIDERS: PCP Family Medicine; Visit Provider Podiatrist Foot & Ankle Surgery | DX: E11.42 Type 2 diabetes mellitus with diabetic polyneuropathy (principal); N18.6 End stage renal disease; Z99.2 Dependence on renal dialysis; E11.621 Type 2 diabetes mellitus with foot ulcer; L97.511 Non-pressure chronic ulcer of other part of right foot limited to breakdown of skin; L97.322 Non-pressure chronic ulcer of left ankle with fat layer exposed; Z89.421 Acquired absence of other right toe(s); Z89.411 Acquired absence of right great toe; Z79.4 Long term (current) use of insulin | CPT/HCPCS: 99213 ==

== ENCOUNTER → 2025-06-06 07:08 | Outpatient (BNVA) | payer OTHER, MEDICAID, SELFPAY | PROVIDERS: PCP Family Medicine; Visit Provider Podiatrist Foot & Ankle Surgery | DX: E11.42 Type 2 diabetes mellitus with diabetic polyneuropathy (principal); N18.6 End stage renal disease; Z99.2 Dependence on renal dialysis; L97.511 Non-pressure chronic ulcer of other part of right foot limited to breakdown of skin; L97.322 Non-pressure chronic ulcer of left ankle with fat layer exposed; Z89.421 Acquired absence of other right toe(s); Z89.411 Acquired absence of right great toe; E11.621 Type 2 diabetes mellitus with foot ulcer; Z79.4 Long term (current) use of insulin | CPT/HCPCS: 99213 ==

== ENCOUNTER → 2025-06-20 07:16 | Outpatient (BNVA) | payer OTHER, MEDICAID, SELFPAY | PROVIDERS: PCP Family Medicine; Visit Provider Podiatrist Foot & Ankle Surgery | DX: E11.42 Type 2 diabetes mellitus with diabetic polyneuropathy (principal); N18.6 End stage renal disease; Z99.2 Dependence on renal dialysis; E11.621 Type 2 diabetes mellitus with foot ulcer; L97.511 Non-pressure chronic ulcer of other part of right foot limited to breakdown of skin; L97.322 Non-pressure chronic ulcer of left ankle with fat layer exposed; Z89.421 Acquired absence of other right toe(s); Z89.412 Acquired absence of left great toe; Z79.4 Long term (current) use of insulin | CPT/HCPCS: 99213 ==

== ENCOUNTER → 2025-07-11 07:25 | Outpatient (BNVA) | payer OTHER, MEDICAID, SELFPAY | PROVIDERS: PCP Family Medicine; Visit Provider Podiatrist Foot & Ankle Surgery | DX: E11.42 Type 2 diabetes mellitus with diabetic polyneuropathy (principal); N18.6 End stage renal disease; Z99.2 Dependence on renal dialysis; E11.621 Type 2 diabetes mellitus with foot ulcer; L97.511 Non-pressure chronic ulcer of other part of right foot limited to breakdown of skin; L97.322 Non-pressure chronic ulcer of left ankle with fat layer exposed; Z89.421 Acquired absence of other right toe(s); Z89.411 Acquired absence of right great toe; Z79.4 Long term (current) use of insulin | CPT/HCPCS: 99213 ==